=== PATIENT | male | born 1940 | race Caucasian/White ===

== ENCOUNTER 2018-01-22 13:18 | Inpatient (IN) | payer OTHER ==
[~2018-01-22] VITALS: Ht 170.2 cm; Wt 130.6 kg
[~2018-01-22 13:18] MED LIST: BICALUTAMIDE50 MG PO; BUMETANIDE2 MG PO; CLOPIDOGREL75 MG PO; GLIPIZIDE10 MG PO; HYDROCHLOROTHIA25 MG PO; INVOKANA PO; LISINOPRIL40 MG PO; METFORMIN HCL850 MG PO; METOPROLOL TART25 MG PO; NORCO 7.5-3251 EACH PO; OXYBUTYNIN CHLOR5 MG PO
[2018-01-22] MEDS ORDERED: ASPIRIN 325 MG TAB PO ONE (13:45)
[2018-01-22 13:51] LABS: BASOPHILS % 0.4 % (0.0-1.0); EOSINOPHILS # (AUTO) 0.2 (0.0-0.4); EOSINOPHILS % 2.6 % (0.0-6.0); HEMATOCRIT 37.6 % (38.2-49.6); HEMOGLOBIN 12.1 g/dL (14.0-18.0); LYMPHOCYTES % 12.5 % (18.0-39.1); MEAN CORPUSCULAR HEMOGLOBIN 30.4 pg (28-32); MEAN CORPUSCULAR HGB CONC 32.2 g/dL (31-35); MEAN CORPUSCULAR VOLUME 94.5 fL (81-99); MONOCYTES # (AUTO) 0.9 (0.2-0.8); MONOCYTES % 11.7 % (4.4-11.3); NEUTROPHILS # (AUTO) 5.6 (2.1-6.9); NEUTROPHILS % 72.4 % (38.7-80.0); PLATELET COUNT 171 x10e3/uL (140-360); RED BLOOD COUNT 3.98 x10e6/uL (4.3-5.7); RED CELL DISTRIBUTION WIDTH 14.1 % (11.7-14.4)
[2018-01-22] MEDS ORDERED: FUROSEMIDE INJ 10 MG/ML 4 ML VIAL IV ONE (14:00)
[2018-01-22 14:01] LABS: INR 1.23; PROTHROMBIN TIME 14.6 seconds (11.9-14.5)
[2018-01-22 14:02] LABS: PARTIAL THROMBOPLASTIN TIME 22.6 seconds (23.8-35.5)
[2018-01-22 14:13] LABS: ALANINE AMINOTRANSFERASE 10 IU/L (0-55); ALBUMIN 3.4 g/dL (3.5-5.0); ALBUMIN/GLOBULIN RATIO 0.9 (0.8-2.0); ALKALINE PHOSPHATASE 65 IU/L (40-150); ANION GAP 14.5 mmol/L (8-16); BLOOD UREA NITROGEN 38 mg/dL (7-26); BUN/CREATININE RATIO 29 (6-25); CALCIUM 9.5 mg/dL (8.4-10.2); CARBON DIOXIDE 30 mmol/L (22-29); CHLORIDE 99 mmol/L (98-107); CREATINE KINASE 37 IU/L (30-200); EST GLOMERULAR FILTRATION RATE 54 ML/MIN (60-); GLUCOSE 152 mg/dL (74-118); POTASSIUM 4.5 mmol/L (3.5-5.1); SODIUM 139 mmol/L (136-145)
--- NOTE | 2018-01-22 15:26 | Diagnostic Imaging Report ---
PROCEDURE: A single AP view of the chest. COMPARISON: 03/19/2016 INDICATIONS: SHORTNESS OF BREATH, CHEST PAIN, CHF FINDINGS: Lines/tubes: None. Lungs: The lung volumes are low. There is pulmonary vascular congestion and mild interstitial edema. Pleura: No pneumothorax. A small right pleural effusion maybe present. Heart and mediastinum: Mild cardiomegaly, unchanged. Atherosclerosis of the thoracic aorta. Bones: No acute bony abnormality. IMPRESSION: Low lung volumes with pulmonary vascular congestion and mild interstitial edema. Dictated by: Daniel Bear M.D. on 01/22/2018 at 15:31 Electronically approved by: Daniel Bear M.D. on 01/22/2018 at 15:31
[2018-01-22] MEDS ORDERED: NOVOLOG100 UNITS1 SC (16:01)
[2018-01-22] MEDS ORDERED: LEVEMIR100 UNIT/1 SC (16:01)
[2018-01-22] MEDS ORDERED: ELIQUIS PO (16:01)
[2018-01-22] MEDS ORDERED: CLOPIDOGREL75 MG PO (16:04)
[2018-01-22] MEDS ORDERED: CITALOPRAM HBR20 MG PO (16:04)
[2018-01-22] MEDS ORDERED: FLUCONAZOLE100 MG PO (16:04)
[2018-01-22] MEDS ORDERED: FUROSEMIDE10 MG/1 M1 PO (16:04)
[2018-01-22] MEDS ORDERED: CHLORTHALIDONE25 MG PO (16:04)
[2018-01-22] MEDS ORDERED: SPIRONOLACTONE25 MG PO (16:09)
[2018-01-22] MEDS ORDERED: TIZANIDINE HCL4 M1 PO (16:09)
[2018-01-22] MEDS ORDERED: LISINOPRIL10 MG PO (16:13)
[2018-01-22] MEDS ORDERED: FUROSEMIDE INJ 10 MG/ML 4 ML VIAL IV SCH (17:00)
[2018-01-22 18:35] VITALS: BP 153/82
[2018-01-22 19:10] VITALS: BP 140/63
[2018-01-22] MEDS ORDERED: VITAMIN D250000 UNIT PO (20:51)
[2018-01-22] MEDS ORDERED: CHLORTHALIDONE 25 MG TAB PO PRN (21:30)
[2018-01-22] MEDS ORDERED: TIZANIDINE HCL 4 MG TAB PO PRN (21:30)
[2018-01-22] MEDS ORDERED: ERGOCALCIFEROL 50,000 UNIT CAP PO SCH (21:30)
[2018-01-22 23:50] VITALS: BP 140/63
[2018-01-22 23:51] VITALS: BP 140/63
[2018-01-23 00:30] VITALS: BP 113/54
[2018-01-23 00:41] LABS: CREATINE KINASE 45 IU/L (30-200)
[2018-01-23] MEDS: FUROSEMIDE INJ 10 MG/ML 4 ML VIAL IV SCH ×2 (02:06→13:00)
[2018-01-23 04:00] VITALS: BP 116/61
[2018-01-23] MEDS ORDERED: GLIPIZIDE 5 MG TAB PO SCH (07:30)
[2018-01-23 07:37] VITALS: BP 117/62
[2018-01-23 08:00] VITALS: BP 117/62
[2018-01-23] MEDS: METFORMIN HCL 850 MG TAB PO SCH ×2 (08:45→12:23)
[2018-01-23] MEDS: CITALOPRAM HYDROBROMIDE 20 MG TAB PO SCH (08:46)
[2018-01-23] MEDS: OXYBUTYNIN CHLORIDE 5 MG TAB PO SCH ×2 (08:46→18:08)
[2018-01-23] MEDS: APIXABAN 5 MG TABLET PO SCH ×2 (08:46→18:08)
[2018-01-23] MEDS: SPIRONOLACTONE 25 MG TAB PO SCH ×2 (08:46→18:08)
[2018-01-23] MEDS: INSULIN LISPRO 100 UNIT/1 ML 3ML VIAL SQ SCH ×3 (08:46→18:46)
[2018-01-23] MEDS: METOPROLOL TARTRATE 25 MG TAB PO SCH ×2 (08:47→18:09)
[2018-01-23] MEDS: LISINOPRIL 10 MG TAB PO SCH (08:47)
[2018-01-23] MEDS ORDERED: CLOPIDOGREL BISULFATE 75 MG TAB PO SCH (09:00)
[2018-01-23] MEDS ORDERED: FLUCONAZOLE 100 MG TAB PO SCH (09:00)
[2018-01-23] MEDS ORDERED: BUMETANIDE 1 MG TAB PO SCH (09:00)
[2018-01-23] MEDS ORDERED: HYDRALAZINE HCL 20 MG/ML VIAL IV PRN (11:15)
[2018-01-23] MEDS ORDERED: NITROGLYCERIN 0.4 MG SUBL SL PRN (11:15)
[2018-01-23] MEDS ORDERED: METOPROLOL TARTRATE INJ 1 MG/ML VIAL IV PRN (11:15)
[2018-01-23 11:54] LABS: MAGNESIUM 1.4 MG/DL (1.3-2.1); PHOSPHORUS 3.1 MG/DL (2.3-4.7)
[2018-01-23] MEDS ORDERED: ACETAMINOPHEN 325 MG TAB PO PRN (12:45)
[2018-01-23] MEDS ORDERED: METOLAZONE 5 MG TAB PO ONE (14:30)
[2018-01-23] MEDS: GABAPENTIN 100 MG CAP PO SCH ×2 (15:02→21:41)
[2018-01-23 16:29] VITALS: BP 125/62
--- NOTE | 2018-01-23 16:58 | History and Physical ---
CHIEF COMPLAINT: Shortness of breath and weight gain. PCP: Dr. Rm Parham SENIOR [employer] BUSINESS PARTNER: Dr. Raza Ramirez HISTORY: This is a 77-year-old male who has congestive heart failure. His last ejection fraction was approximately 30%. That was back in March 2016. The patient came in this time with increasing shortness of breath. The patient apparently had weight gain. He is not watching his fluids. He has vascular congestion, baseline congestive heart failure, atrial fibrillation. The patient is otherwise stable. PAST MEDICAL HISTORY 1. Systolic dysfunction congestive heart failure. 2. Depression. 3. Obesity. 4. Diabetes, type 2. 5. Hypertension. 6. Chronic osteoarthritic pain. 7. History of coronary disease. 8. Cerebrovascular accident with no residual weakness. 9. Atrial fibrillation on anticoagulant therapy. HOME MEDICATIONS: List is reviewed. ALLERGIES: PENICILLIN, ADHESIVE TAPE, HYDROMORPHONE AND LATEX. REVIEW OF SYSTEMS: Shortness of breath and leg swelling. PHYSICAL EXAMINATION GENERAL: The patient is not in acute distress. VITAL SIGNS: Temperature 98. Blood pressure 117/62. Pulse rate 80. Respirations 18. HEENT: Normocephalic, atraumatic, anicteric. NECK: Grossly supple. No JVD. PULMONARY: Diminished breath sounds at the bases with some rales. CARDIOVASCULAR: S1, S2. Atrial fibrillation, rate controlled. ABDOMEN: Soft, obese. EXTREMITIES: There is 1+ edema. NEUROLOGIC: No focal deficit. CHEST X-RAY: Low volume lungs with vascular congestion. LABORATORY: WBC 7.7, hemoglobin 12.1, hematocrit 37.6 and platelets 171. Coagulation: INR is 1.23. Troponins are negative. Uric acid is 12.3. Sodium is 139, potassium 4.5, chloride 99, bicarb 30. BUN is 38 and creatinine 1.3. Glucose is 152. BNP is 222. IMPRESSION 1. [id number] systolic dysfunction congestive heart failure exacerbation. 2. Multiple chronic medical problems. PLAN: Echocardiogram. Repeated lab work. IV Lasix. Home medication adjustment. Will monitor the patient closely. Job#: [id number]
[2018-01-23 19:30] VITALS: BP 118/58
[2018-01-23] MEDS: CHOLESTYRAMINE 4 GM PACKET PO SCH (21:41)
[2018-01-23] MEDS: INSULIN DETEMIR 100 UNIT/ML PEN SQ SCH (21:53)
[2018-01-24] VITALS (8 sets, daily range): BP systolic 96–115; BP diastolic 50–56
[2018-01-24] MEDS: FUROSEMIDE INJ 10 MG/ML 4 ML VIAL IV SCH ×2 (02:43→15:09)
[2018-01-24] MEDS: CHOLESTYRAMINE 4 GM PACKET PO SCH ×3 (05:06→20:58)
[2018-01-24 06:14] LABS: ANION GAP 13.5 mmol/L (8-16); CREATININE, SERUM 1.6 mg/dL (0.72-1.25); POTASSIUM 3.5 mmol/L (3.5-5.1)
[2018-01-24] MEDS: INSULIN LISPRO 100 UNIT/1 ML 3ML VIAL SQ SCH ×3 (08:00→16:00)
[2018-01-24] MEDS: OXYBUTYNIN CHLORIDE 5 MG TAB PO SCH ×2 (08:26→16:10)
[2018-01-24] MEDS: APIXABAN 5 MG TABLET PO SCH ×2 (08:26→16:10)
[2018-01-24] MEDS: CITALOPRAM HYDROBROMIDE 20 MG TAB PO SCH (08:26)
[2018-01-24] MEDS: SPIRONOLACTONE 25 MG TAB PO SCH ×2 (08:26→16:10)
[2018-01-24] MEDS: LISINOPRIL 10 MG TAB PO SCH (08:27)
[2018-01-24] MEDS: METOPROLOL TARTRATE 25 MG TAB PO SCH ×2 (08:27→16:22)
[2018-01-24] MEDS: GABAPENTIN 100 MG CAP PO SCH ×3 (08:27→20:58)
[2018-01-24] MEDS ORDERED: LISINOPRIL 2.5 MG TAB PO SCH (09:00)
[2018-01-24] MEDS: HYDROCODONE/APAP 7.5MG-325MG 1 EA TAB PO PRN ×2 (12:06→19:29)
[2018-01-24] MEDS ORDERED: MAGNESIUM SULFATE 2GM/50ML 50 ML IV ONE (14:00)
[2018-01-24] MEDS: INSULIN DETEMIR 100 UNIT/ML PEN SQ SCH (20:57)
[2018-01-25] VITALS (10 sets, daily range): BP systolic 81–122; BP diastolic 41–76
[2018-01-25] MEDS: FUROSEMIDE INJ 10 MG/ML 4 ML VIAL IV SCH (02:12)
[2018-01-25] MEDS: HYDROCODONE/APAP 7.5MG-325MG 1 EA TAB PO PRN ×2 (02:18→20:07)
[2018-01-25] MEDS: CHOLESTYRAMINE 4 GM PACKET PO SCH ×3 (05:36→22:00)
[2018-01-25 06:53] LABS: CALCIUM 8.7 mg/dL (8.4-10.2); CREATININE, SERUM 2.42 mg/dL (0.72-1.25)
[2018-01-25] MEDS: INSULIN LISPRO 100 UNIT/1 ML 3ML VIAL SQ SCH ×3 (08:00→17:40)
[2018-01-25] MEDS: SPIRONOLACTONE 25 MG TAB PO SCH (08:18)
[2018-01-25] MEDS: GABAPENTIN 100 MG CAP PO SCH ×3 (08:19→22:13)
[2018-01-25] MEDS: METOPROLOL TARTRATE 25 MG TAB PO SCH ×3 (08:19→16:24)
[2018-01-25] MEDS: OXYBUTYNIN CHLORIDE 5 MG TAB PO SCH ×2 (08:19→17:13)
[2018-01-25] MEDS: APIXABAN 5 MG TABLET PO SCH (08:19)
[2018-01-25] MEDS: CITALOPRAM HYDROBROMIDE 20 MG TAB PO SCH (08:19)
[2018-01-25] MEDS: LISINOPRIL 10 MG TAB PO SCH (08:22)
[2018-01-25] MEDS ORDERED: ENOXAPARIN SODIUM INJ 100 MG/ML SYR SC SCH (21:00)
[2018-01-25] MEDS: ENOXAPARIN SOD INJ 60 MG/0.6 ML SYR SC SCH (22:13)
[2018-01-25] MEDS: INSULIN DETEMIR 100 UNIT/ML PEN SQ SCH (22:19)
[2018-01-26] VITALS (11 sets, daily range): BP systolic 95–132; BP diastolic 51–82
[2018-01-26 05:19] LABS: BASOPHILS % 0.5 % (0.0-1.0); EOSINOPHILS # (AUTO) 0.4 (0.0-0.4); EOSINOPHILS % 4.1 % (0.0-6.0); HEMATOCRIT 31.7 % (38.2-49.6); LYMPHOCYTES # (AUTO) 1.3 (1.0-3.2); LYMPHOCYTES % 14.6 % (18.0-39.1); MEAN CORPUSCULAR HEMOGLOBIN 30.5 pg (28-32); MEAN CORPUSCULAR HGB CONC 31.5 g/dL (31-35); MEAN CORPUSCULAR VOLUME 96.6 fL (81-99); MONOCYTES # (AUTO) 1.2 (0.2-0.8); MONOCYTES % 13.5 % (4.4-11.3); NEUTROPHILS # (AUTO) 5.9 (2.1-6.9); PLATELET COUNT 153 x10e3/uL (140-360); RED BLOOD COUNT 3.28 x10e6/uL (4.3-5.7)
[2018-01-26] MEDS: CHOLESTYRAMINE 4 GM PACKET PO SCH ×4 (05:25→14:55)
[2018-01-26 05:51] LABS: ANION GAP 14.3 mmol/L (8-16); CALCIUM 8.8 mg/dL (8.4-10.2); CREATININE, SERUM 3.35 mg/dL (0.72-1.25)
[2018-01-26 06:15] LABS: POTASSIUM 5.3 mmol/L (3.5-5.1)
[2018-01-26] MEDS: METOPROLOL TARTRATE 25 MG TAB PO SCH ×2 (07:58→16:55)
[2018-01-26] MEDS: CITALOPRAM HYDROBROMIDE 20 MG TAB PO SCH (07:58)
[2018-01-26] MEDS: OXYBUTYNIN CHLORIDE 5 MG TAB PO SCH ×2 (07:58→16:54)
[2018-01-26] MEDS: INSULIN LISPRO 100 UNIT/1 ML 3ML VIAL SQ SCH ×3 (07:58→16:50)
[2018-01-26] MEDS: GABAPENTIN 100 MG CAP PO SCH (07:59)
[2018-01-26] MEDS: ENOXAPARIN SOD INJ 60 MG/0.6 ML SYR SC SCH ×2 (07:59→21:39)
[2018-01-26] MEDS ORDERED: SOD POLYSTYRENE SULFONATE SUSP 15 GM/60 ML BTL PO NR (08:00)
[2018-01-26] MEDS ORDERED: REGADENOSON 0.4 MG/5 ML SYR IV ONE (08:36)
[2018-01-26] MEDS ORDERED: SOD POLYSTYRENE SULFONATE SUSP 15 GM/60 ML BTL PO SCH (12:15)
[2018-01-26] MEDS: HYDROCODONE/APAP 7.5MG-325MG 1 EA TAB PO PRN (19:38)
[2018-01-26] MEDS: INSULIN DETEMIR 100 UNIT/ML PEN SQ SCH (21:29)
[2018-01-27] VITALS (8 sets, daily range): BP systolic 106–128; BP diastolic 51–58
--- NOTE | 2018-01-27 00:37 | Diagnostic Imaging Report ---
EXAMINATION: Head CT without contrast. HISTORY:Fall. COMPARISON:CT brain from 03/22/2016 and MRI brain from 03/28/2016. TECHNIQUE: Multidetector axial images were obtained from the foramen magnum to the vertex without contrast. The images were reconstructed using brain and bone algorithms. Thin section brain images were reformatted into coronal and sagittal planes. Intravenous contrast: None IMAGE QUALITY: Acceptable. FINDINGS: Skull/scalp: Unchanged 2.5 mm well-circumscribed sclerotic lesion in left frontal calvarium, possibly represents a bone island. Parenchyma: Unchanged nonspecific few, scattered supratentorial white matter hypodensity are likely related to small vessel ischemic changes. Old lacunar infarct in the right lateral aspect of the lateral meniscus. Unchanged chronic encephalomalacia in the right occipital lobe (cuneus) from prior vascular insult in [employer] territory. No acute hemorrhage, mass or acute major vascular territorial infarct. Arteries: Atherosclerotic calcification in bilateral carotid siphon. Dural sinuses: No abnormal density suggestive of thrombosis. Ventricles: No hydrocephalus or displacement. Extra-axial spaces: No abnormal density. Brain volume: Normal for age. Craniocervical junction: No mass, Chiari malformation, or basilar invagination. Sella: No mass. Paranasal/mastoid sinuses: Imaged portions unremarkable. IMPRESSION: No acute intracranial abnormality. No change since CT brain from 03/22/2016. Chronic findings: 1. Mild supratentorial white matter microvascular ischemic changes. 2. Old lacunar infarct in right thalamus. 3. Chronic encephalomalacia in right occipital lobe from prior vascular insult. Signed by: Dr. Paula Nguyen M.D. on 01/27/2018 12:34 AM
--- NOTE | 2018-01-27 00:43 | Diagnostic Imaging Report ---
History: Trauma, fall. Comparison studies: None Technique: Axial images were obtained through the cervical region.. Coronal and sagittal images reconstructed from the axial data.. Intravenous contrast: None Findings: Fractures: None. Soft tissue injuries: None. Atlantoaxial articulation: Intact. Alignment: Normal lordosis. No scoliosis. Cervicomedullary junction: No abnormalities. The foramen magnum is patent. Soft tissues: Atherosclerotic calcification in bilateral carotid bulb. Vertebrae: No fractures, infection or neoplasm. Chronic fracture deformity of the tip of T1 spinous process. Degenerative changes: C4-C5: Posterior disc osteophyte complex results in mild canal stenosis. No foraminal stenosis. C5-C6: Posterior disc osteophyte complex without canal stenosis. No foraminal stenosis. C6-C7: Mild left foraminal stenosis due to facet and uncovertebral arthrosis. IMPRESSION: 1. No acute cervical spine abnormalities. 2. Ligament, spinal cord and or vascular abnormalities cannot be excluded on the basis of this examination. Signed by: Dr. Paula Nguyen M.D. on 01/27/2018 12:39 AM
--- NOTE | 2018-01-27 00:47 | Diagnostic Imaging Report ---
Exam: CT of the pelvis without IV contrast Indication: Fall, right hip pain Comparison: None Findings: Routine MSK protocol performed without the addition of IV contrast. No pelvic or hip fracture. Normal intrapelvic organs. No hematoma. Bilateral fat-containing inguinal hernias versus lipomatosis of the canal. The soft tissues are unremarkable. Impression: No evidence of a pelvic or hip fracture. Signed by: Dr. Lindsey Kyle M.D. on 01/27/2018 12:43 AM
--- NOTE | 2018-01-27 00:48 | Diagnostic Imaging Report ---
EXAM: HAND 3+ VIEWS RIGHT, AP, lateral and oblique INDICATION: Fall, right hand pain COMPARISON: None FINDINGS: BONES: No acute fractures. JOINTS: No malalignment. SOFT TISSUES: Normal IMPRESSION: No evidence of a right hand fracture. Signed by: Dr. Lindsey Kyle M.D. on 01/27/2018 12:45 AM
--- NOTE | 2018-01-27 00:56 | Diagnostic Imaging Report ---
History: Trauma, fall. Comparison studies: None Technique:: Axial were obtained through the thoracic and lumbar regions. Coronal and sagittal images reconstructed from the axial data. Intravenous contrast: None Findings: Alignment: Normal thoracic kyphosis. Normal lumbar lordosis.. No scoliosis. Soft tissues: Moderate right and mild left pleural effusion. Paraspinal muscles: Unremarkable Spinal cord: Can not be evaluated. Vertebrae: No fractures, infection or neoplasm . Thoracic degenerative changes: Multilevel degenerative disc disease and bridging right lateral osteophytes. No significant canal or foraminal stenosis Lumbar degenerative changes: L4-L5: Disc bulge in combination with thickened ligamentum flavum and bilateral facet arthrosis results in mild canal stenosis. Mild bilateral foraminal stenosis. L5-S1: Degenerative disc disease with vacuum phenomena and. Disc bulge without canal stenosis. Advanced bilateral facet arthrosis with vacuum phenomena and within the facet joints. Mild bilateral foraminal stenosis. Visualized portion of bilateral sacroiliac joints: Mild degenerative changes with vacuum phenomenon, decrease in joint space and subchondral sclerosis. IMPRESSION: 1. No acute thoracic or lumbar spine abnormality. 2. Mild thoracic and lumbar spondylosis as detailed above. 3. Ligament, spinal cord and or vascular abnormalities cannot be excluded on the basis of this examination. Signed by: Dr. Paula Nguyen M.D. on 01/27/2018 12:52 AM
[2018-01-27 05:33] LABS: BASOPHILS % 0.4 % (0.0-1.0); EOSINOPHILS # (AUTO) 0.2 (0.0-0.4); HEMATOCRIT 32.2 % (38.2-49.6); HEMOGLOBIN 10.3 g/dL (14.0-18.0); LYMPHOCYTES # (AUTO) 1.2 (1.0-3.2); LYMPHOCYTES % 15.1 % (18.0-39.1); MEAN CORPUSCULAR HEMOGLOBIN 30.6 pg (28-32); MEAN CORPUSCULAR VOLUME 95.5 fL (81-99); MONOCYTES # (AUTO) 0.9 (0.2-0.8); MONOCYTES % 11.3 % (4.4-11.3); NEUTROPHILS # (AUTO) 5.6 (2.1-6.9); NEUTROPHILS % 69.9 % (38.7-80.0); PLATELET COUNT 141 x10e3/uL (140-360); RED BLOOD COUNT 3.37 x10e6/uL (4.3-5.7); RED CELL DISTRIBUTION WIDTH 14.1 % (11.7-14.4)
[2018-01-27] MEDS: CHOLESTYRAMINE 4 GM PACKET PO SCH ×3 (06:00→22:00)
[2018-01-27 06:01] LABS: ANION GAP 15.3 mmol/L (8-16); CALCIUM 8.7 mg/dL (8.4-10.2); CREATININE, SERUM 3.12 mg/dL (0.72-1.25); POTASSIUM 5.3 mmol/L (3.5-5.1)
[2018-01-27] MEDS: INSULIN LISPRO 100 UNIT/1 ML 3ML VIAL SQ SCH ×3 (08:50→18:04)
[2018-01-27] MEDS: OXYBUTYNIN CHLORIDE 5 MG TAB PO SCH ×2 (08:50→17:38)
[2018-01-27] MEDS: METOPROLOL TARTRATE 25 MG TAB PO SCH ×2 (08:50→17:38)
[2018-01-27] MEDS: CITALOPRAM HYDROBROMIDE 20 MG TAB PO SCH (08:50)
[2018-01-27] MEDS: ENOXAPARIN SOD INJ 60 MG/0.6 ML SYR SC SCH ×2 (08:50→22:30)
--- NOTE | 2018-01-27 14:08 | Cardiology Report ---
DATE OF STUDY: January 26, 2018 LEXISCAN NUCLEAR STRESS TEST INDICATIONS: CHF. DESCRIPTION OF PROCEDURE: After informed consent, patient was brought to the stress lab. He was given 11 millicuries of technetium 99 Myoview intravenously and myocardial perfusion SPECT images were obtained in the horizontal long-axis, short-axis and vertical long-axis views. Subsequently, patient was given 0.4 mg of Lexiscan over 10 seconds intravenously. Patient was given 32 mCi of technetium 99 Myoview and myocardial perfusion SPECT image was obtained in the horizontal long-axis, short-axis and vertical long-axis views. Gated images were also obtained. Patient tolerated the procedure without any complications. REPORT: Baseline EKG shows atrial fibrillation at 84 beats per minute. Extreme axis intraventricular conduction delay, nonspecific ST-T changes. PARAMETERS 1. Resting heart rate is 114 beats. 2. Maximum heart rate is 129 beats per minute. 3. Resting blood pressure is 118/98 mmHg. 4. Maximum blood pressure 119/98 mmHg. REASON FOR TERMINATION: Endpoint attained. INTERPRETATION 1. Negative chest pain. 2. Negative for arrhythmias. 3. Blood pressure response consistent with Lexiscan. 4. No significant ST-T changes seen during Lexiscan infusion compared to baseline. 5. Analysis and SPECT images reveals dilated left ventricle. 6. Uniform radioisotope uptake in all segments of the myocardium without any significant perfusion defects. 7. Diffuse hyperkinesis of the left ventricle. 8. Overall ejection fraction 44%. CONCLUSION: 1. No evidence significant ischemia or infarction on this study. 2. Diffuse hyperkinesis of the left ventricle is noted. 3. Overall ejection fraction is 44%. Job#: [id number]
[2018-01-27] MEDS: INSULIN DETEMIR 100 UNIT/ML PEN SQ SCH (21:00)
[2018-01-27] MEDS: HYDROCODONE/APAP 7.5MG-325MG 1 EA TAB PO PRN (23:39)
[2018-01-28] VITALS (7 sets, daily range): BP systolic 107–133; BP diastolic 55–63
[2018-01-28] MEDS: CHOLESTYRAMINE 4 GM PACKET PO SCH ×3 (06:00→22:00)
[2018-01-28 06:02] LABS: ANION GAP 13.5 mmol/L (8-16); CALCIUM 8.7 mg/dL (8.4-10.2); CREATININE, SERUM 2.07 mg/dL (0.72-1.25); POTASSIUM 4.5 mmol/L (3.5-5.1)
[2018-01-28] MEDS: HYDROCODONE/APAP 7.5MG-325MG 1 EA TAB PO PRN (07:25)
[2018-01-28] MEDS: CITALOPRAM HYDROBROMIDE 20 MG TAB PO SCH (08:50)
[2018-01-28] MEDS: INSULIN LISPRO 100 UNIT/1 ML 3ML VIAL SQ SCH ×3 (08:50→17:30)
[2018-01-28] MEDS: METOPROLOL TARTRATE 25 MG TAB PO SCH ×2 (08:50→17:30)
[2018-01-28] MEDS: OXYBUTYNIN CHLORIDE 5 MG TAB PO SCH ×2 (08:50→17:30)
[2018-01-28] MEDS ORDERED: APIXABAN 5 MG TABLET PO SCH (09:00)
[2018-01-28] MEDS: BUMETANIDE 1 MG TAB PO SCH (09:18)
[2018-01-28] MEDS ORDERED: FUROSEMIDE INJ 10 MG/ML 4 ML VIAL IV ONE (14:00)
[2018-01-28] MEDS: INSULIN DETEMIR 100 UNIT/ML PEN SQ SCH (21:00)
[2018-01-28] MEDS: APIXABAN 5 MG TABLET PO SCH (22:28)
[2018-01-29] VITALS: BP 133/57
[2018-01-29 05:27] LABS: ANION GAP 15.5 mmol/L (8-16); CALCIUM 9.4 mg/dL (8.4-10.2); CREATININE, SERUM 1.72 mg/dL (0.72-1.25); POTASSIUM 4.5 mmol/L (3.5-5.1)
[2018-01-29] MEDS: CHOLESTYRAMINE 4 GM PACKET PO SCH (06:00)
[2018-01-29 06:21] VITALS: BP 129/68
[2018-01-29] MEDS: HYDROCODONE/APAP 7.5MG-325MG 1 EA TAB PO PRN (07:47)
[2018-01-29 08:00] VITALS: BP 135/58
[2018-01-29] MEDS: INSULIN LISPRO 100 UNIT/1 ML 3ML VIAL SQ SCH (08:00)
[2018-01-29 08:07] VITALS: BP 135/58
[2018-01-29] MEDS: BUMETANIDE 1 MG TAB PO SCH (10:18)
[2018-01-29] MEDS: CITALOPRAM HYDROBROMIDE 20 MG TAB PO SCH (10:18)
[2018-01-29] MEDS: OXYBUTYNIN CHLORIDE 5 MG TAB PO SCH (10:18)
[2018-01-29] MEDS: APIXABAN 5 MG TABLET PO SCH (10:18)
[2018-01-29] MEDS: METOPROLOL TARTRATE 25 MG TAB PO SCH (10:18)
--- NOTE | 2018-01-29 17:41 | Discharge Summary ---
DISCHARGE DIAGNOSES 1. Acute exacerbation of congestive heart failure with systolic and diastolic congestive. 2. Acute kidney injury secondary to ischemic acute tubular necrosis. 3. Anasarca. 4. Type 2 diabetes. 5. Hypertension. 6. Morbidly obese. CONSULTANTS: Cardiology. VITAL SIGNS: Temperature is 97.2, pulse 71, respiratory rate is 20, blood pressure 135/58, pulse ox 98% on room air. LAB FINDINGS: Show white count 7.8, hemoglobin 10, hematocrit 32, platelets of 141. Coagulation PT 14, INR 1.2, PTT 22. Chemistry sodium 137, potassium 4.5, chloride 196, bicarb of 30, anion gap of 15, BUN is 83, creatinine is 1.7. His glucose is 134. His calcium is 9.4. His troponins were negative. His BNP was 222, lipase of 32, phosphorus was 3.1. MICROBIOLOGY: None. IMAGING STUDIES: Chest x-ray on admission consistent with pulmonary edema. Lower extremity venous Doppler negative for DVT. CT cervical spine negative. X-ray of the hand negative. CT brain--no acute findings seen. Thoracic CT--no acute findings. Pelvis CT--no acute findings. CT of the lumbar spine shows no acute findings. HOSPITAL COURSE: A 77-year-old male with known history of CHF, diabetes, hypertension and morbidly obese, comes in with complaints of shortness of breath. Found to have pulmonary edema and treated for underlying acute exacerbation of CHF. Cardiology was consulted. Patient was started on diuretics. While in the hospital his creatinine did elevated and developed acute kidney injury secondary to his HUSSAIN inhibitor as well as diuretics. Patient's creatinine did improve throughout hospital course and down-trended to a creatinine of 1.7 on discharge. Patient was advised to follow up with a colorman as an outpatient with repeat labs in a week. Patient had a cardiac stress test, found to have some abnormalities but due to the fact that the patient had an elevated creatinine, left heart cath was deferred by cardiology. Patient may need a heart cath in the future but due to acute kidney injury at this hospital stay it was deferred. Instead LifeVest was ordered and placed on the patient. Patient also qualified for home O2 as well in which he will be discharged with oxygen. On discharge he will be sent home on cardioprotective medications as well as diuretics. He is advised to follow up with cardiology in 1 week as well as nephrology with repeat labs and PCP in 1 week. On the day of discharge vital signs were stable, labs were stable. Patient was seen, evaluated and examined thoroughly. On the day of discharge no other complaints. Patient verbalized understanding and agrees with plan of care. To follow up accordingly as an outpatient with the primary care physician, mri ct tech and colorman in 1 week span. Would repeat chemistry. DISCHARGE MEDICATIONS: See med reconciliation form includin. Aspirin 81 mg daily 1 tab daily. 2. Aldactone 25 mg 1 tab daily. 3. Bumex 2 mg 1 tab p.o. b.i.d. DISPOSITION: To home. CONDITION: Stable. DIET: Heart healthy. FOLLOWUP: With your mri ct tech, primary care physician and as well as nephrology in one week span with repeat labs. In the event of worsening symptoms, patient advised to come back to the ED for further evaluation. Discharge summary took greater than 35 minutes. ELIZABETH NGUYEN MD Job#: [id number] DG
== END 2018-01-29 13:00 | disposition home health service (06) | DRG 291 ==
LOC: ER 13:18 → ERHOLD 16:18 → IMCU 17:05 → OBSVTOIN 01-24 14:53 → MED/SURG 01-24 16:15
PROVIDERS: ADMIT Internal Medicine; ATTEND Internal Medicine
DX: I13.0 Hypertensive heart and chronic kidney disease with heart failure and stage 1 through stage 4 chronic kidney disease, or unspecified chronic kidney disease (principal); N17.0 Acute kidney failure with tubular necrosis; I50.43 Acute on chronic combined systolic (congestive) and diastolic (congestive) heart failure; Z68.41 Body mass index [BMI] 40.0-44.9, adult; I25.10 Atherosclerotic heart disease of native coronary artery without angina pectoris; I48.91 Unspecified atrial fibrillation; Z79.01 Long term (current) use of anticoagulants; F32.9 Major depressive disorder, single episode, unspecified; Z91.040 Latex allergy status; Z88.0 Allergy status to penicillin; Z88.8 Allergy status to other drugs, medicaments and biological substances; Z91.048 Other nonmedicinal substance allergy status; E66.01 Morbid (severe) obesity due to excess calories; E11.22 Type 2 diabetes mellitus with diabetic chronic kidney disease; N18.9 Chronic kidney disease, unspecified
CPT/HCPCS: 36415; 70450; 71045; 72125; 72128; 72131; 72192; 78452; 80048; 80053; 82150; 82306; 82550; 82553; 82948; 83690; 83735; 83880; 84100; 84484; 84550; 85025; 85610; 85651; 85730; 93005; 93017; 93306; 93970; 99285; A9502; G0378; J1650; J1940

== ENCOUNTER 2018-06-04 13:35 | Inpatient (IN) | payer OTHER ==
[~2018-06-04] VITALS: Ht 170.2 cm; Wt 116.6 kg
[~2018-06-04 13:35] MED LIST changes: +AMIODARONE HCL200 MG PO; +CHLORTHALIDONE25 MG PO; +CITALOPRAM HBR20 MG PO; +ELIQUIS PO; +FLUCONAZOLE100 MG PO; +FUROSEMIDE10 MG/1 M1 PO; +LEVEMIR100 UNIT/1 SC; +LISINOPRIL10 MG PO; +LISINOPRIL5 MG PO; +NOVOLOG100 UNITS1 SC; +SPIRONOLACTONE25 MG PO; +TIZANIDINE HCL4 M1 PO; +VITAMIN D250000 UNIT PO
[2018-06-04] MEDS ORDERED: METOCLOPRAMIDE10 MG PO (14:12)
[2018-06-04] MEDS ORDERED: SPIRONOLACTONE50 MG PO (14:12)
[2018-06-04] MEDS ORDERED: BUMETANIDE1 MG PO (14:12)
[2018-06-04] MEDS ORDERED: METOPROLOL TART25 MG PO (14:12)
[2018-06-04] MEDS ORDERED: GLIPIZIDE5 MG PO (14:12)
[2018-06-04] MEDS ORDERED: BUPROPION XL150 MG (14:12)
[2018-06-04] MEDS ORDERED: DIGOXIN125 MCG PO (14:12)
[2018-06-04] MEDS ORDERED: OXYBUTYNIN CHLOR5 GM (14:12)
[2018-06-04] MEDS ORDERED: CLOPIDOGREL75 MG PO (14:14)
[2018-06-04] MEDS ORDERED: LEVEMIR SQ (14:14)
--- NOTE | 2018-06-04 15:49 | Diagnostic Imaging Report ---
Exam: Left foot 3 views History: Cellulitis Comparison: None. Findings: No acute, displaced fracture or dislocation. No cortical erosive or destructive change. Joint spaces are relatively well-maintained. Degenerative plantar and posterior calcaneal spur. Atherosclerotic vascular calcifications. No gross soft tissue defect or subcutaneous gas. Impression: No acute osseous abnormalities. No plain radiographic evidence of osteomyelitis in this patient with reported history of cellulitis of the foot. Signed by: Dr. Jaleel Pradhan M.D. on 06/04/2018 3:45 PM
[2018-06-04 15:55] LABS: BASOPHILS # (AUTO) 0.1 (0.0-0.1); BASOPHILS % 0.3 % (0.0-1.0); EOSINOPHILS # (AUTO) 0.2 (0.0-0.4); EOSINOPHILS % 1.4 % (0.0-6.0); HEMATOCRIT 38.2 % (38.2-49.6); HEMOGLOBIN 12.4 g/dL (14.0-18.0); LYMPHOCYTES # (AUTO) 1.1 (1.0-3.2); LYMPHOCYTES % 7.4 % (18.0-39.1); MEAN CORPUSCULAR HEMOGLOBIN 31.6 pg (28-32); MEAN CORPUSCULAR HGB CONC 32.5 g/dL (31-35); MEAN CORPUSCULAR VOLUME 97.4 fL (81-99); MONOCYTES # (AUTO) 1.5 (0.2-0.8); NEUTROPHILS # (AUTO) 11.8 (2.1-6.9); NEUTROPHILS % 80.2 % (38.7-80.0); PLATELET COUNT 215 x10e3/uL (140-360); RED BLOOD COUNT 3.92 x10e6/uL (4.3-5.7); RED CELL DISTRIBUTION WIDTH 13.6 % (11.7-14.4)
[2018-06-04 16:12] LABS: ALBUMIN 3.3 g/dL (3.5-5.0); ALBUMIN/GLOBULIN RATIO 0.8 (0.8-2.0); ANION GAP 14.4 mmol/L (8-16); CALCIUM 9.9 mg/dL (8.4-10.2); CREATININE, SERUM 1.83 mg/dL (0.72-1.25); POTASSIUM 5.4 mmol/L (3.5-5.1)
[2018-06-04] MEDS ORDERED: INSULIN REGULAR, HUMAN 3ML VL 100 UNIT in SODIUM CHLORIDE 0.9% 100 ML 99 ML IV ONE ×2 (16:30)
[2018-06-04] MEDS ORDERED: SODIUM CHLORIDE 0.9% 500ML 500 ML IV ONE (16:30)
[2018-06-04] MEDS ORDERED: ONDANSETRON HCL INJ 2 MG/ML VIAL IV PRN (16:45)
[2018-06-04] MEDS ORDERED: SODIUM CHLORIDE FLUSH 10 ML SYR INJ PRN (16:45)
[2018-06-04] MEDS: MORPHINE SULFATE 2 MG/ML SYR IV PRN (18:08)
[2018-06-04] MEDS: VANCOMYCIN 1GM/NS 250 ML 250 ML IV SCH (18:23)
[2018-06-04 21:25] LABS: CLARITY,URINE SL CLOUDY (CLEAR); COLOR,URINE YELLOW (YELLOW); LEUKOCYTE ESTERASE ,URINE NEGATIVE (NEGATIVE); NITRITE,URINE NEGATIVE (NEGATIVE); PROTEIN,URINE DIPSTICK NEGATIVE (NEGATIVE)
[2018-06-04 21:26] LABS: BILIRUBIN,URINE NEGATIVE (NEGATIVE); KETONES,URINE NEGATIVE (NEGATIVE); URINE UROBILINOGEN 0.2 mg/dL (0.2 - 1)
[2018-06-04 21:32] LABS: EPITHELIAL CELLS,URINE FEW /LPF; HYALINE CASTS 0-1 (0-1)
[2018-06-04] MEDS: INSULIN REGULAR, HUMAN 100 UNIT/1 ML 3ML VIAL SQ SCH ×2 (21:45→21:59)
[2018-06-04] MEDS ORDERED: DEXTROSE 50% SYRINGE 50 ML IV PRN (21:45)
[2018-06-04 22:45] VITALS: BP 117/40
[2018-06-04] MEDS ORDERED: NON-FORMULARY MEDICATION ([Eliquis] 5 MG) PO SCH (23:00)
[2018-06-04] MEDS: APIXABAN 5 MG TABLET PO SCH (23:31)
[2018-06-05] VITALS (8 sets, daily range): BP systolic 118–154; BP diastolic 56–68
[2018-06-05 06:12] LABS: BASOPHILS # (AUTO) 0.1 (0.0-0.1); BASOPHILS % 0.5 % (0.0-1.0); EOSINOPHILS # (AUTO) 0.3 (0.0-0.4); EOSINOPHILS % 2.4 % (0.0-6.0); HEMATOCRIT 34.2 % (38.2-49.6); HEMOGLOBIN 10.9 g/dL (14.0-18.0); MEAN CORPUSCULAR HEMOGLOBIN 31.1 pg (28-32); MEAN CORPUSCULAR HGB CONC 31.9 g/dL (31-35); MEAN CORPUSCULAR VOLUME 97.7 fL (81-99); MONOCYTES # (AUTO) 1.1 (0.2-0.8); MONOCYTES % 9.9 % (4.4-11.3); NEUTROPHILS # (AUTO) 8.4 (2.1-6.9); NEUTROPHILS % 77.6 % (38.7-80.0); PLATELET COUNT 171 x10e3/uL (140-360); RED CELL DISTRIBUTION WIDTH 13.8 % (11.7-14.4)
[2018-06-05 06:33] LABS: ANION GAP 12.6 mmol/L (8-16); POTASSIUM 4.6 mmol/L (3.5-5.1)
[2018-06-05 07:22] LABS: CREATININE, SERUM 1.73 mg/dL (0.72-1.25)
[2018-06-05] MEDS ORDERED: NON-FORMULARY MEDICATION ([Eliquis] 5 MG) PO SCH (09:00)
[2018-06-05] MEDS ORDERED: APIXABAN 5 MG TABLET PO SCH (09:00)
[2018-06-05] MEDS: VANCOMYCIN 1GM/NS 250 ML 250 ML IV SCH (09:30)
[2018-06-05] MEDS: APIXABAN 5 MG TABLET PO SCH ×2 (09:30→17:40)
[2018-06-05] MEDS: INSULIN REGULAR, HUMAN 100 UNIT/1 ML 3ML VIAL SQ SCH ×4 (09:30→21:00)
[2018-06-05] MEDS ORDERED: TIZANIDINE HCL 4 MG TAB PO PRN (10:45)
[2018-06-05] MEDS: DIGOXIN 0.125 MG TAB PO SCH (12:30)
[2018-06-05] MEDS: METOPROLOL TARTRATE 25 MG TAB PO SCH (12:30)
[2018-06-05] MEDS: AMIODARONE HCL 200 MG TAB PO SCH (12:30)
[2018-06-05] MEDS: METOCLOPRAMIDE HCL 10 MG TAB PO SCH ×2 (12:30→17:40)
[2018-06-05] MEDS: BUPROPION HCL 150 MG TABCR PO SCH (12:30)
[2018-06-05] MEDS: CEFEPIME HCL 1 GM VIAL IV SCH (12:35)
--- NOTE | 2018-06-05 12:40 | History and Physical ---
PRIMARY CARE PHYSICIAN: Dr. Rm Parham. CHIEF COMPLAINT: Left foot pain. HISTORY: This is a 77-year-old male who came to the hospital because of left foot pain. The left foot has redness in the extensive surface of both upper, lower, and bottom of the toes. The patient has no sign of open wound. The patient is otherwise stable. He does have significant peripheral vascular disease and also congestive heart failure. He is pending for an ICD placement. The patient is otherwise stable at this time. PAST MEDICAL HISTORY 1. Diabetes type 2 on insulin therapy. 2. Coronary artery disease. 3. Congestive heart failure with cardiomyopathy. 4. Peripheral vascular disease. 5. Hypertension. 6. Morbid obesity. 7. Atrial fibrillation. 8. CVA with no residual weakness. 9. Major depression anxiety disorder. PAST SURGICAL HISTORY: 1. Appendectomy. 2. Carpal tunnel syndrome. 3. Cholecystectomy. 4. Hemorrhoidectomy. SOCIAL HISTORY: The patient does not smoke or use alcohol. No recreational drug use. ALLERGIES: TO PENICILLIN, ADHESIVE, HYDROMORPHONE, AND LATEX. HOME MEDICATIONS: List is reviewed. REVIEW OF SYSTEMS: Left foot pain. PHYSICAL EXAMINATION VITAL SIGNS: Temperature is 98, blood pressure 118/59, pulse rate 67, respirations 18. GENERAL: The patient is in no acute distress. HEENT: Normocephalic, atraumatic, and anicteric. NECK: Supple grossly. PULMONARY: Diminished breath sounds. CARDIOVASCULAR: S1 and S2. Irregularly irregular rate control. The patient is wearing a life vest. ABDOMEN: Morbidly obese. EXTREMITIES: There is no edema. There is chronic venous skin changes. Right foot is stable. Left foot show redness along the toe and the distal surface of the foot both on the dorsal and the ventral surface. NEUROLOGIC: No focal deficits. LABORATORY: Sodium is 133, potassium 4.6, chloride 96, bicarb 29, BUN 38, creatinine 1.7, glucose 248. WBC is 10.7, hemoglobin 11, hematocrit 34, and platelets 171. Left foot pain. This is most likely secondary to peripheral vascular disease. I did not see any sign of infection. He does have a dry chronic ulcer on the plantar surface of the lateral foot area. No drainage. No redness surrounding. Neurologic exam, there is no focal deficits. X-ray of the left foot showed no acute abnormality. No radiographic evidence of osteomyelitis. IMPRESSION 1. Peripheral vascular disease, most likely the left foot. 2. Multiple chronic baseline problem. 3. Diabetes type 2, on insulin therapy. 4. Cardiomyopathy, pending for ICD placement per patient. PLAN: Continue with current treatment. I will obtain an arterial Doppler of the left lower extremity. We will consult Dr. Ramirez for his recommendation. Resume home medication. We will follow up on Dr. Ramirez recommendation, pending that, we will continue to keep the patient on observation and if needed, we will admit the patient for any procedures. We will monitor the patient closely at this time. Job#: [id number] PUN
[2018-06-05] MEDS: INSULIN LISPRO 100 UNIT/1 ML 3ML VIAL SQ SCH ×2 (14:00→17:40)
--- NOTE | 2018-06-05 14:51 | Consultation ---
DATE OF CONSULTATION: REQUESTING PHYSICIAN: Dr. Corbett. REASON FOR CONSULT: Leg pain. HISTORY OF PRESENTING ILLNESS: Mr. Almeida is a 77-year-old gentleman with past medical history as listed below, apparently developed some pain in his left foot with some redness on Thursday, which got worse. He went to see his PCP who sent him to the emergency room. Patient has history of PAD and also history of cardiomyopathy, wears a LifeVest, and is being evaluated for an ICD placement. Denies any chest pain or unusual shortness of breath. No abdominal pain, vomiting, or diarrhea. REVIEW OF SYMPTOMS CONSTITUTIONAL: Has some fatigue and weakness. HEENT: No headache, blurring of vision, seizures, syncope. CARDIOVASCULAR: No chest pain, unusual dyspnea, orthopnea, or PND. RESPIRATORY: No cough, fever, or expectoration. GI: No abdominal pain, vomiting, or diarrhea. : No dysuria, frequency, or incontinence. ALLERGIES: LATEX, HYDROMORPHONE, ADHESIVES, AND PENICILLIN. MEDICATIONS: See list. PAST MEDICAL HISTORY 1. History of CAD. 2. History of cardiomyopathy/CHF with depressed LV function with a LifeVest. 3. History of diabetes mellitus. 4. History of hypertension. 5. History of PAD. 6. History of atrial fibrillation. 7. History of CVA. 8. History of depression and anxiety. PAST SURGICAL HISTORY 1. History of carpal tunnel surgery. 2. History of appendectomy. 3. History of hemorrhoidectomy. 4. History of cholecystectomy. SOCIAL HISTORY: Does not smoke or drink. FAMILY HISTORY: Noncontributory. PHYSICAL EXAMINATION GENERAL: Slightly obese gentleman. Awake, alert, not in any obvious distress. VITAL SIGNS: Heart rate is 76, blood pressure is 134/61, respiratory rate 16. HEENT: Atraumatic. NECK: No JVD or bruit. No thyromegaly. No lymphadenopathy. CARDIOVASCULAR: First and second heart sounds heard. No murmurs, rubs, or gallops appreciated. CHEST: Decreased air entry at the bases. No adventitious sounds appreciated. ABDOMEN: Obese, nontender. EXTREMITIES: Mild erythema of his left foot and has discoloration of his feet. LABORATORY DATA: Sodium is 133, potassium 4.6, chloride is 96, bicarb is 29, BUN is 38, creatinine 1.7, glucose 246. Hemoglobin is 10.9, hematocrit 34.2, platelets are 171, white count is 10.7. IMPRESSION 1. Left foot pain. 2. Peripheral artery disease. 3. Cardiomyopathy/congestive heart failure, chronic, systolic. 4. History of diabetes mellitus. 5. History of hypertension. 6. History of atrial fibrillation. 7. History of cerebrovascular accident. 8. History of coronary artery disease. PLAN 1. Get arterial Doppler to rule out significant stenosis. 2. Patient has a LifeVest, is pending ICD placement. 3. Continue with his current medications. 4. Further cardiac workup depending on clinical course. 5. Patient is on apixaban, can continue the same for now. 6. Discussed my impression and plan of management with patient and he understands, also discussed with his daughter who was at the bedside. As always, I appreciate and thank you very much for your referrals. Job#: [id number] LPA
[2018-06-05] MEDS ORDERED: MUPIROCIN 2% OINT 22 GM TUBE TOP SCH (17:00)
[2018-06-05] MEDS: OXYBUTYNIN CHLORIDE 5 MG TAB PO SCH (17:40)
[2018-06-05] MEDS: INSULIN DETEMIR 100 UNIT/ML PEN SQ SCH (21:18)
[2018-06-06] VITALS (8 sets, daily range): BP systolic 127–159; BP diastolic 52–69
[2018-06-06] MEDS: CEFEPIME HCL 1 GM VIAL IV SCH ×3 (00:03→23:47)
[2018-06-06] MEDS: APIXABAN 5 MG TABLET PO SCH ×2 (09:20→17:00)
[2018-06-06] MEDS: METOPROLOL TARTRATE 25 MG TAB PO SCH (09:20)
[2018-06-06] MEDS: VANCOMYCIN 750MG/NS 150ML IVPB 150 ML IV SCH (09:20)
[2018-06-06] MEDS: DIGOXIN 0.125 MG TAB PO SCH (09:20)
[2018-06-06] MEDS: METOCLOPRAMIDE HCL 10 MG TAB PO SCH ×3 (09:20→16:30)
[2018-06-06] MEDS: OXYBUTYNIN CHLORIDE 5 MG TAB PO SCH ×2 (09:20→17:30)
[2018-06-06] MEDS: BUPROPION HCL 150 MG TABCR PO SCH (09:20)
[2018-06-06] MEDS: AMIODARONE HCL 200 MG TAB PO SCH (09:20)
[2018-06-06] MEDS: INSULIN LISPRO 100 UNIT/1 ML 3ML VIAL SQ SCH ×6 (09:20→21:00)
[2018-06-06] MEDS ORDERED: DEXTROSE 50% SYRINGE 50 ML IV PRN (09:45)
[2018-06-06] MEDS: MORPHINE SULFATE 2 MG/ML SYR IV PRN (11:25)
--- NOTE | 2018-06-06 14:52 | Progress Note ---
DATE: June 06, 2018 SUBJECTIVE: Patient seen at bedside, doing better. Still having some discomfort to the left lower extremity with decreased pain. OBJECTIVE VITAL SIGNS: Afebrile, pulse rate 54, respirations 18, blood pressure 127/57, and O2 saturation 93%. EXTREMITIES: Lower extremity arterial Doppler results were reviewed, revealing decreased flow to the distal anterior tibial artery with monophasic waveforms to the posterior tibial. Ulcerations to the left lower extremity healing slowly, down to subcutaneous tissue, 1.5 cm in diameter sub 5th metatarsophalangeal joint and 3 cm in diameter to the left heel. ASSESSMENT: Multiple grade 2 ulcerations with peripheral arterial disease. PLAN: We will continue Bactroban ointment. Continue offloading with offloading boots. Continue IV antibiotics. We will continue to follow. Job#: [id number] LPA
[2018-06-06] MEDS: MUPIROCIN 2% OINT 22 GM TUBE TOP SCH (21:00)
[2018-06-06] MEDS: INSULIN DETEMIR 100 UNIT/ML PEN SQ SCH (21:20)
[2018-06-07] VITALS (7 sets, daily range): BP systolic 114–137; BP diastolic 53–63
[2018-06-07 05:18] LABS: INR 1.18
[2018-06-07 05:19] LABS: PARTIAL THROMBOPLASTIN TIME 34.7 seconds (23.8-35.5)
[2018-06-07 05:25] LABS: ANION GAP 11.8 mmol/L (8-16); CALCIUM 9.2 mg/dL (8.4-10.2); CREATININE, SERUM 1.43 mg/dL (0.72-1.25); POTASSIUM 4.8 mmol/L (3.5-5.1)
[2018-06-07] MEDS: INSULIN LISPRO 100 UNIT/1 ML 3ML VIAL SQ SCH ×7 (07:30→21:13)
[2018-06-07] MEDS: METOCLOPRAMIDE HCL 10 MG TAB PO SCH ×3 (07:30→16:35)
[2018-06-07] MEDS: METOPROLOL TARTRATE 25 MG TAB PO SCH (09:00)
[2018-06-07] MEDS: AMIODARONE HCL 200 MG TAB PO SCH (09:00)
[2018-06-07] MEDS: OXYBUTYNIN CHLORIDE 5 MG TAB PO SCH ×2 (09:00→16:35)
[2018-06-07] MEDS: BUPROPION HCL 150 MG TABCR PO SCH (09:00)
[2018-06-07] MEDS: DIGOXIN 0.125 MG TAB PO SCH (09:00)
--- NOTE | 2018-06-07 09:17 | Progress Note ---
DATE: June 07, 2018 SUBJECTIVE: Patient at bedside accompanied by daughter, having an ultrasound of his heart. Denies any history of fever, chills, nausea or vomiting. Decreased pain to the left lower extremity. OBJECTIVE: Vitals: Afebrile, pulse rate 64, respirations 21, blood pressure 127/61, O2 saturation 98%. Labs: White blood cell count 10.7. Ulceration to the left lower extremity is stable. Some necrotic scab noted. Negative foul smell with periwound cellulitis present. Pedal pulses are diminished greatly to both the AT and PT arteries. ASSESSMENT: Peripheral artery disease with multiple grade-2 ulcers with periwound cellulitis. PLAN: Will continue offloading with offloading boots. Continue Bactroban ointment. Continue cefepime IV piggyback. Will continue to follow. Patient will be having angiogram and possible angioplasty later on today. Job#: [id number]
[2018-06-07] MEDS: VANCOMYCIN 750MG/NS 150ML IVPB 150 ML IV SCH (09:41)
[2018-06-07] MEDS: CEFEPIME HCL 1 GM VIAL IV SCH (11:55)
[2018-06-07] MEDS: MUPIROCIN 2% OINT 22 GM TUBE TOP SCH ×2 (12:16→21:13)
[2018-06-07] MEDS: MORPHINE SULFATE 2 MG/ML SYR IV PRN (13:20)
[2018-06-07] MEDS: INSULIN DETEMIR 100 UNIT/ML PEN SQ SCH (21:13)
[2018-06-08] VITALS: BP_SYST 136; BP_SYST 143; BP_DIAS 61; BP_DIAS 62
[2018-06-08] MEDS: CEFEPIME HCL 1 GM VIAL IV SCH ×3 (00:42→23:45)
[2018-06-08] MEDS: MORPHINE SULFATE 2 MG/ML SYR IV PRN ×2 (03:40→14:28)
[2018-06-08] MEDS ORDERED: MIDAZOLAM HCL 2 MG/2 ML VIAL ONE ×3 (06:48→11:10)
[2018-06-08] MEDS ORDERED: SODIUM CHLORIDE 0.9% 1000ML 1,000 ML ONE ×2 (06:49→10:28)
[2018-06-08] MEDS ORDERED: LIDOCAINE HCL 2% LOCAL 20 ML VIAL ONE ×2 (06:49→10:27)
[2018-06-08] MEDS ORDERED: HEPARIN SOD/SOD CHLORIDE 0 ML ONE (06:49)
[2018-06-08] MEDS ORDERED: FENTANYL CITRATE/PF 100MCG/2 ML INJ ONE ×2 (06:49→10:27)
[2018-06-08] MEDS ORDERED: IOPAMIDOL 300MG/ML 100 ML INFUS..BTL IV ONE ×2 (06:49→10:27)
[2018-06-08] MEDS: INSULIN LISPRO 100 UNIT/1 ML 3ML VIAL SQ SCH ×7 (07:30→22:04)
[2018-06-08] MEDS: METOCLOPRAMIDE HCL 10 MG TAB PO SCH ×3 (07:30→16:59)
[2018-06-08 08:02] VITALS: BP 126/63
[2018-06-08] MEDS: OXYBUTYNIN CHLORIDE 5 MG TAB PO SCH ×2 (08:15→17:00)
[2018-06-08] MEDS: AMIODARONE HCL 200 MG TAB PO SCH (08:15)
[2018-06-08] MEDS: DIGOXIN 0.125 MG TAB PO SCH (08:15)
[2018-06-08] MEDS: BUPROPION HCL 150 MG TABCR PO SCH (08:16)
[2018-06-08] MEDS: METOPROLOL TARTRATE 25 MG TAB PO SCH (08:16)
[2018-06-08 08:21] VITALS: BP 126/63
[2018-06-08] MEDS: VANCOMYCIN 750MG/NS 150ML IVPB 150 ML IV SCH (09:00)
--- NOTE | 2018-06-08 09:35 | Progress Note ---
DATE: June 08, 2018 SUBJECTIVE: Patient seen at bedside accompanied by multiple family members. Ready to possibly have an angiogram with angioplasty. OBJECTIVE: Vitals: Afebrile. Pulse rate 76, respirations 20. Blood pressure 126/63, O2 saturation 96%. Labs noted. Ulcerations to the left lower extremity are stable. Has grade-2 ulcers times 2, 1 cm to 1.5 cm sub-5th metatarsophalangeal joint and a grade-2/possibly 3 ulceration to the posterior plantar aspect of the left heel measuring more than 3 to 3.5 cm in diameter. Periwound cellulitis is present. No foul smell. Pedal pulses are diminished. Positive edema noted to both lower extremities. ASSESSMENT: Peripheral artery disease and diabetic neuropathy with grade 2 and 3 ulcerations, left foot. PLAN: Will continue offloading. Continue applying Bactroban ointment with dilute wet-to-dry Betadine. Continue IV antibiotics such as cefepime and vancomycin. Will continue to follow. Job#: [id number]
[2018-06-08] MEDS: MUPIROCIN 2% OINT 22 GM TUBE TOP SCH ×2 (09:37→22:04)
[2018-06-08] MEDS ORDERED: HEPARIN SOD/SOD CHLORIDE 2,000 ML ONE (10:27)
[2018-06-08 12:13] VITALS: BP 130/58
[2018-06-08 17:10] VITALS: BP 156/78
[2018-06-08 20:00] VITALS: BP 137/60
[2018-06-08] MEDS: INSULIN DETEMIR 100 UNIT/ML PEN SQ SCH (22:04)
[2018-06-09] VITALS (8 sets, daily range): BP systolic 106–155; BP diastolic 52–93
[2018-06-09 05:25] LABS: BASOPHILS # (AUTO) 0.1 (0.0-0.1); BASOPHILS % 0.4 % (0.0-1.0); EOSINOPHILS # (AUTO) 0.4 (0.0-0.4); EOSINOPHILS % 3.8 % (0.0-6.0); HEMATOCRIT 34.3 % (38.2-49.6); LYMPHOCYTES # (AUTO) 0.8 (1.0-3.2); MEAN CORPUSCULAR HEMOGLOBIN 31.8 pg (28-32); MEAN CORPUSCULAR HGB CONC 32.1 g/dL (31-35); MEAN CORPUSCULAR VOLUME 99.1 fL (81-99); MONOCYTES # (AUTO) 1.2 (0.2-0.8); MONOCYTES % 10.3 % (4.4-11.3); NEUTROPHILS # (AUTO) 9.1 (2.1-6.9); NEUTROPHILS % 77.8 % (38.7-80.0); PLATELET COUNT 165 x10e3/uL (140-360); RED BLOOD COUNT 3.46 x10e6/uL (4.3-5.7); RED CELL DISTRIBUTION WIDTH 14.1 % (11.7-14.4)
[2018-06-09 06:09] LABS: ANION GAP 12.5 mmol/L (8-16); CALCIUM 9.2 mg/dL (8.4-10.2); CREATININE, SERUM 1.48 mg/dL (0.72-1.25); POTASSIUM 4.5 mmol/L (3.5-5.1)
[2018-06-09] MEDS: INSULIN LISPRO 100 UNIT/1 ML 3ML VIAL SQ SCH ×7 (07:30→20:20)
[2018-06-09] MEDS: AMIODARONE HCL 200 MG TAB PO SCH (08:28)
[2018-06-09] MEDS: METOCLOPRAMIDE HCL 10 MG TAB PO SCH ×3 (08:28→17:28)
[2018-06-09] MEDS: OXYBUTYNIN CHLORIDE 5 MG TAB PO SCH ×2 (08:29→17:29)
[2018-06-09] MEDS: BUPROPION HCL 150 MG TABCR PO SCH (08:29)
[2018-06-09] MEDS: METOPROLOL TARTRATE 25 MG TAB PO SCH (08:29)
[2018-06-09] MEDS: DIGOXIN 0.125 MG TAB PO SCH (08:29)
[2018-06-09] MEDS: VANCOMYCIN 750MG/NS 150ML IVPB 150 ML IV SCH (09:12)
[2018-06-09] MEDS ORDERED: SODIUM CHLORIDE 0.9% 250ML 250 ML ONE (09:14)
--- NOTE | 2018-06-09 09:14 | Progress Note ---
DATE: June 09, 2018 SUBJECTIVE: Patient is at bedside. Doing okay. No distress. Denies any history of fever, chills, nausea, or vomiting. OBJECTIVE VITAL SIGNS: Afebrile, pulse rate 74, respirations 18, blood pressure 155/67, O2 saturation 95%. EXTREMITIES: Ulceration to the left lower extremity stable. Grade 2/3 ulceration, left heel. Grade 2 ulceration, plantar aspect, 5th metatarsophalangeal joint measuring less than 1.5 cm in diameter. Pedal pulses are diminished. Patient was not able to get an angioplasty done secondary to blockages to multiple vessels at different levels. LABS: Show a white blood cell count at 11.7, hemoglobin 11, hematocrit 34.3 with a platelet count of 165,000. ASSESSMENT: Peripheral artery disease with grade 2 and grade 3 ulcer, left foot. PLAN: Will continue offloading. Continue Bactroban ointment and Santyl to the affected area covered by a light Betadine wet-to-dry dressing. Continue offloading. Continue IV cefepime and vanco. Will continue to follow. Job#: [id number] TN
[2018-06-09] MEDS: COLLAGENASE 5 GM TUBE TOP SCH (10:29)
[2018-06-09] MEDS: MORPHINE SULFATE 2 MG/ML SYR IV PRN (10:29)
[2018-06-09] MEDS: MUPIROCIN 2% OINT 22 GM TUBE TOP SCH (10:29)
[2018-06-09] MEDS: CEFEPIME HCL 1 GM VIAL IV SCH ×2 (11:56→23:48)
[2018-06-09] MEDS: INSULIN DETEMIR 100 UNIT/ML PEN SQ SCH (20:20)
[2018-06-10] VITALS (7 sets, daily range): BP systolic 123–148; BP diastolic 54–66
[2018-06-10] MEDS: INSULIN LISPRO 100 UNIT/1 ML 3ML VIAL SQ SCH ×7 (07:30→20:49)
[2018-06-10] MEDS: BUPROPION HCL 150 MG TABCR PO SCH (09:13)
[2018-06-10] MEDS: MORPHINE SULFATE 2 MG/ML SYR IV PRN (09:13)
[2018-06-10] MEDS: VANCOMYCIN 750MG/NS 150ML IVPB 150 ML IV SCH (09:14)
[2018-06-10] MEDS: OXYBUTYNIN CHLORIDE 5 MG TAB PO SCH ×2 (09:14→16:09)
[2018-06-10] MEDS: AMIODARONE HCL 200 MG TAB PO SCH (09:14)
[2018-06-10] MEDS: METOCLOPRAMIDE HCL 10 MG TAB PO SCH ×3 (09:14→16:09)
[2018-06-10] MEDS: DIGOXIN 0.125 MG TAB PO SCH (09:14)
[2018-06-10] MEDS: METOPROLOL TARTRATE 25 MG TAB PO SCH (09:14)
[2018-06-10] MEDS: COLLAGENASE 5 GM TUBE TOP SCH (11:21)
[2018-06-10] MEDS: MUPIROCIN 2% OINT 22 GM TUBE TOP SCH (11:21)
[2018-06-10] MEDS: CEFEPIME HCL 1 GM VIAL IV SCH ×2 (12:21→23:50)
[2018-06-10] MEDS: INSULIN DETEMIR 100 UNIT/ML PEN SQ SCH (20:49)
[2018-06-11] VITALS: BP 128/69
[2018-06-11 04:00] VITALS: BP 135/75
[2018-06-11 05:46] LABS: HEMATOCRIT 30.5 % (38.2-49.6); HEMOGLOBIN 9.9 g/dL (14.0-18.0); MEAN CORPUSCULAR HGB CONC 32.5 g/dL (31-35); MEAN CORPUSCULAR VOLUME 98.7 fL (81-99); PLATELET COUNT 169 x10e3/uL (140-360); RED BLOOD COUNT 3.09 x10e6/uL (4.3-5.7); RED CELL DISTRIBUTION WIDTH 14.1 % (11.7-14.4)
[2018-06-11 07:37] VITALS: BP 124/57
--- NOTE | 2018-06-11 07:45 | Diagnostic Imaging Report ---
Date and Time: 06/08/2018 Procedure: Left lower extremity diagnostic angiography. head sugar reprocess operator: Bibi Chang MD Secondary magnetic prospecting operator: Baldo Bell MD Pre-operative diagnosis: Nonhealing foot wound, osteomyelitis Post-operative diagnosis: Nonhealing foot wound, osteomyelitis, multilevel peripheral vascular disease Conscious Sedation: IV Fentanyl and Versed per nursing administration records The patient's heart rate and pulse oximetry were continuously monitored by the interventional nurse. Blood pressure was monitored at 5 minute intervals. Fluoroscopy time: 3.1 minutes Dose-area Product: 3417.7 cGycm2. Contrast used: 80 cc Isovue-300 Estimated blood loss: Less than 10 cc Specimens: None Implants: None Condition at completion: Stable Disposition: Returned to floor DISCUSSION: Informed consent for the procedure was obtained from the patient and documented in the medical record after discussion of risks and benefits. The patient was placed in the supine position on the angiographic table. The right groin was prepped and draped in the standard sterile fashion. 1% lidocaine was infiltrated into the skin and subcutaneous tissues for local anesthesia. Then under continuous sonographic guidance, a 21-gauge micropuncture needle was used to access the right common femoral artery. A 0.018-in. wire was advanced centrally under fluoroscopic guidance. The needle was exchanged for a 5 Maldivian micropuncture sheath and the wire upsized to a 0.035-in. J-wire, which was advanced into the lower abdominal aorta. A 5 Maldivian vascular sheath was advanced over the wire to secure the access. A 5 Maldivian flush catheter was advanced over the wire and positioned in the lower abdominal aorta. Digital subtraction angiography of the pelvis was performed. A 0.035-in. Glidewire advantage was advanced through the catheter and down into the left external iliac artery. The catheter was advanced over the wire and digital subtraction angiography of the left lower extremity was then performed at multiple stations, demonstrating no lesions amenable to endovascular intervention. The Glidewire advantage was reintroduced through the catheter. The catheter and wire were removed. Hemostasis was then she by deployment of a Mynx vascular closure device in the standard fashion after repeat sterile preparation of the groin. A sterile dressing was applied. The patient tolerated the procedure well without immediate complication. Findings: Widely patent distal abdominal aorta, bilateral common, and external iliac arteries, without significant stenosis. Patent left internal iliac artery. Anterior branch of the right internal iliac artery is not visualized and may be occluded. Diffusely diseased left superficial and profunda femoral artery with scattered foci of mild stenoses. Diffusely diseased popliteal artery with multifocal mild stenoses. Severe stenosis at the tibioperoneal trunk origin with occlusion proximally. Occluded posterior tibial artery and anterior tibial artery throughout the course. Peroneal artery reconstitutes from collaterals proximally and demonstrates multifocal moderate to severe stenoses and occludes at the level of the ankle. Findings were not amenable to angiographic intervention. IMPRESSION: Left lower extremity diagnostic angiography as above. No significant iliac inflow stenosis. Occlusion of the anterior and posterior tibial arteries throughout their course. Occlusion of the proximal tibioperoneal trunk. Peroneal artery demonstrates multifocal moderate to severe stenoses and occludes at the level of the ankle. Signed by: Dr. Bibi Chang MD on 06/11/2018 7:41 AM
[2018-06-11] MEDS: INSULIN LISPRO 100 UNIT/1 ML 3ML VIAL SQ SCH ×4 (08:00→12:00)
[2018-06-11] MEDS: METOCLOPRAMIDE HCL 10 MG TAB PO SCH ×2 (08:00→11:30)
[2018-06-11 08:20] LABS: BAND NEUTROPHILS % (MANUAL) 5 %; EOSINOPHILS % (MANUAL) 3 % (0-7); LYMPHOCYTES % (MANUAL) 4 % (19-48); MONOCYTES % (MANUAL) 9 % (3.4-9.0); NEUTROPHILS % (MANUAL) 79 % (40-74); PLATELET ESTIMATE ADEQUATE; PLATELET MORPHOLOGY COMMENT NORMAL; RBC MORPHOLOGY COMMENT NORMAL
[2018-06-11] MEDS: BUPROPION HCL 150 MG TABCR PO SCH (08:30)
[2018-06-11] MEDS: AMIODARONE HCL 200 MG TAB PO SCH (08:30)
[2018-06-11] MEDS: OXYBUTYNIN CHLORIDE 5 MG TAB PO SCH (08:30)
[2018-06-11] MEDS: DIGOXIN 0.125 MG TAB PO SCH (08:30)
[2018-06-11] MEDS: METOPROLOL TARTRATE 25 MG TAB PO SCH (08:30)
[2018-06-11] MEDS: VANCOMYCIN 750MG/NS 150ML IVPB 150 ML IV SCH (09:00)
[2018-06-11] MEDS: COLLAGENASE 5 GM TUBE TOP SCH (09:00)
[2018-06-11] MEDS: MUPIROCIN 2% OINT 22 GM TUBE TOP SCH (09:00)
--- NOTE | 2018-06-11 09:40 | Progress Note ---
DATE: June 11, 2018 SUBJECTIVE: Patient seen at bedside, doing well. Denies any history of fever, chills, nausea, vomiting. OBJECTIVE: VITAL SIGNS: Afebrile. Pulse rate 60, respiration 16, blood pressure 124/57, O2 saturation 97%. EXTREMITIES: Ulcerations to the left lower extremity healing. Necrotic scab noted to the heel becoming more superficial. Decreased periwound cellulitis. No drainage. Ulceration, sub-fifth metatarsal head also healing nicely. Less than 1.5 cm diameter with necrosis noted down to dermis and possibly subcutaneous. Pedal pulses are diminished to both the DP and PT. LABS: Noted. White blood cell count 12.4, hemoglobin 9.9 with a platelet count of 169,000. ASSESSMENT: Diabetic neuropathy, eczema with grade 3 and grade 2 ulceration. PLAN: Continue Santyl and Bactroban ointment. Continue offloading as best as possible. Okay to go home as far as my perspective on his foot care. Patient upon discharge is to follow up within a couple of weeks in the office. Job#: [id number]
[2018-06-11] MEDS: CEFEPIME HCL 1 GM VIAL IV SCH (11:30)
[2018-06-11 11:50] VITALS: BP 133/61
--- NOTE | 2018-06-11 14:52 | Discharge Summary ---
CONSULTANTS: 1. Dr. Raza Ramirez. 2. Dr. Jose Olivera. 3. Dr. Satnam Cheema. FINAL DIAGNOSES: 1. Bilateral foot infected diabetic foot ulcer. 2. Severe peripheral vascular disease. 3. Cardiomyopathy. SUMMARY: Patient is a 77-year-old male who came into the hospital because of left foot pain. The patient does have vascular disease with a circulatory problem, but he also had multiple infected diabetic foot ulcers both on the right and the left foot. The area is small. It is not with any drainage, but there is ulcer. The patient was seen by Dr. Satnam Cheema. Antibiotics given. He is doing much better now. The patient underwent angiogram of the lower extremity. He does have a vasculature problem, but no intervention. The patient is recommended to continue with his Eliquis. Patient is stable at this time. He will follow up Dr. Olivera for his ICD in the near future once his ulcer is healed up and no sign of infection. The patient is stable, discharged home today. He will take clindamycin for 10 days along with Bacid for prevention of diarrhea. His echocardiogram showed ejection fraction of 45%. Patient stable, discharged home today. Follow up with Dr. Olivera and Dr. Raza Ramirez along with his primary care physician, Dr. Rm Parham, as instructed. Job#: [id number] EV
== END 2018-06-11 16:03 | disposition home or self-care (01) | DRG 300 ==
LOC: ER 13:35 → ERHOLD 17:06 → IMCU 22:27 → OBSVTOIN 06-05 10:47 → MED/SURG3 06-08 14:49
PROVIDERS: ADMIT Internal Medicine; ATTEND Internal Medicine
PROC: B41D1ZZ Fluoroscopy of Aorta and Bilateral Lower Extremity Arteries using Low Osmolar Contrast (ICD-10-PCS; principal; 2018-06-08)
DX: I70.203 Unspecified atherosclerosis of native arteries of extremities, bilateral legs (principal); L03.116 Cellulitis of left lower limb; I50.22 Chronic systolic (congestive) heart failure; L97.429 Non-pressure chronic ulcer of left heel and midfoot with unspecified severity; L97.419 Non-pressure chronic ulcer of right heel and midfoot with unspecified severity; I13.0 Hypertensive heart and chronic kidney disease with heart failure and stage 1 through stage 4 chronic kidney disease, or unspecified chronic kidney disease; Z68.41 Body mass index [BMI] 40.0-44.9, adult; I70.92 Chronic total occlusion of artery of the extremities; I25.10 Atherosclerotic heart disease of native coronary artery without angina pectoris; I48.2 Chronic atrial fibrillation; Z86.73 Personal history of transient ischemic attack (TIA), and cerebral infarction without residual deficits; Z79.4 Long term (current) use of insulin; E66.01 Morbid (severe) obesity due to excess calories; E11.42 Type 2 diabetes mellitus with diabetic polyneuropathy; E11.621 Type 2 diabetes mellitus with foot ulcer; E11.22 Type 2 diabetes mellitus with diabetic chronic kidney disease; N18.3 Chronic kidney disease, stage 3 (moderate)
CPT/HCPCS: 36415; 74470; 75710; 80048; 80053; 80202; 81001; 82948; 85007; 85025; 85027; 85610; 85730; 87040; 93306; 93926; 96372; 99283; C1769; G0378; J0692; J2001; J2250; J2270; J2405; J3370; J7030; J7040; J7050; Q9967

== ENCOUNTER 2018-06-30 09:21 | Observation (INO) | payer OTHER ==
[~2018-06-30] VITALS: Ht 171.4 cm; Wt 108.4 kg
[~2018-06-30 09:21] MED LIST changes: +BUMETANIDE1 MG PO; +BUPROPION XL150 MG; +DIGOXIN125 MCG PO; +GLIPIZIDE5 MG PO; +LEVEMIR SQ; +METOCLOPRAMIDE10 MG PO; +OXYBUTYNIN CHLOR5 GM; +SPIRONOLACTONE50 MG PO
[2018-06-30 10:16] LABS: BASOPHILS # (AUTO) 0.1 (0.0-0.1); BASOPHILS % 0.5 % (0.0-1.0); EOSINOPHILS # (AUTO) 0.4 (0.0-0.4); EOSINOPHILS % 3.2 % (0.0-6.0); HEMATOCRIT 37.7 % (38.2-49.6); HEMOGLOBIN 12.2 g/dL (14.0-18.0); LYMPHOCYTES # (AUTO) 1.4 (1.0-3.2); LYMPHOCYTES % 10.6 % (18.0-39.1); MEAN CORPUSCULAR HEMOGLOBIN 32.1 pg (28-32); MEAN CORPUSCULAR HGB CONC 32.4 g/dL (31-35); MEAN CORPUSCULAR VOLUME 99.2 fL (81-99); MONOCYTES # (AUTO) 1.5 (0.2-0.8); MONOCYTES % 11.1 % (4.4-11.3); NEUTROPHILS % 74.1 % (38.7-80.0); PLATELET COUNT 214 x10e3/uL (140-360); RED CELL DISTRIBUTION WIDTH 14.9 % (11.7-14.4)
--- NOTE | 2018-06-30 10:24 | Diagnostic Imaging Report ---
PROCEDURE: A single AP view of the chest. COMPARISON: Patients [facility], DX, CHEST SINGLE (PORTABLE), 01/22/2018, 14:11. INDICATIONS: CONSTIPATION, PATIENT WEARING DEFIBULATOR VEST FINDINGS: Lines/tubes: Cardiac monitoring device and wires causes mild interference in interpretation. Lungs: Mild pulmonary vascular congestion. Pleura: There is no pleural effusion or pneumothorax. Heart and mediastinum: The heart is enlarged. Bones: No acute bony abnormality. IMPRESSION: Cardiomegaly with mild pulmonary vascular congestion. Christian Polanco D.O. Dictated by: Christian Polanco D.O. on 06/30/2018 at 10:35 Electronically approved by: Christian Polanco D.O. on 06/30/2018 at 10:35
[2018-06-30 10:47] LABS: ALBUMIN 3.3 g/dL (3.5-5.0); ALBUMIN/GLOBULIN RATIO 0.8 (0.8-2.0); ANION GAP 12.9 mmol/L (8-16); CALCIUM 9.5 mg/dL (8.4-10.2); CREATININE, SERUM 1.36 mg/dL (0.72-1.25); MAGNESIUM 2.4 MG/DL (1.3-2.1); POTASSIUM 4.9 mmol/L (3.5-5.1)
[2018-06-30 10:52] LABS: B-TYPE NATRIURETIC PEPTIDE2 184.9 pg/mL (0-100)
[2018-06-30 10:55] LABS: INR 1.2
[2018-06-30 10:56] LABS: PARTIAL THROMBOPLASTIN TIME 34.3 seconds (23.8-35.5)
[2018-06-30 10:57] LABS: PROTHROMBIN TIME 16.3 seconds (11.9-14.5)
[2018-06-30 11:11] LABS: CREATINE KINASE MB 1.1 ng/mL (0-5.0)
[2018-06-30] MEDS ORDERED: SODIUM CHLORIDE 0.9% 500ML 500 ML IV ONE (12:45)
[2018-06-30 12:48] LABS: CLARITY,URINE CLEAR (CLEAR); COLOR,URINE YELLOW (YELLOW); LEUKOCYTE ESTERASE ,URINE NEGATIVE (NEGATIVE)
[2018-06-30 12:49] LABS: BILIRUBIN,URINE NEGATIVE (NEGATIVE); KETONES,URINE NEGATIVE (NEGATIVE); NITRITE,URINE NEGATIVE (NEGATIVE); PROTEIN,URINE DIPSTICK NEGATIVE (NEGATIVE); URINE UROBILINOGEN 0.2 mg/dL (0.2 - 1)
[2018-06-30 12:59] LABS: BACTERIA,URINE FEW /HPF; EPITHELIAL CELLS,URINE FEW /LPF; RBC,URINE 0-5 /HPF (0-5); WBC,URINE (MAN) 0-5 /HPF (0-5)
[2018-06-30] MEDS ORDERED: ONDANSETRON HCL INJ 2 MG/ML VIAL IV NR (13:01)
[2018-06-30] MEDS ORDERED: MORPHINE SULFATE INJ 4 MG/ML INJ IV NR (13:15)
--- NOTE | 2018-06-30 15:27 | Diagnostic Imaging Report ---
PROCEDURE: CT ABDOMEN AND PELVIS WITH CONTRAST TECHNIQUE: The abdomen and pelvis were scanned utilizing a multidetector helical scanner from the diaphragm to the lesser trochanter after the IV administration of 100 cc of Isovue 370 and the oral administration of water. Coronal and sagittal multiplanar reformations were obtained. Low dose protocol was utilized. COMPARISON: None DLP: 820.62 mGy-cm INDICATIONS: CONSTIPATION FINDINGS: LOWER THORAX: Normal. HEPATOBILIARY: No focal hepatic lesions. Gallbladder is absent with mild biliary dilatation. SPLEEN: No splenomegaly. PANCREAS: No focal masses or ductal dilatation. ADRENALS: No adrenal nodules. KIDNEYS/URETERS: No hydronephrosis or solid mass lesions. There are 2 nonobstructing small left lower pole renal stones with the largest measuring 3 mm. PELVIC ORGANS/BLADDER: Unremarkable. PERITONEUM / RETROPERITONEUM: No free air or fluid. LYMPH NODES: No lymphadenopathy. VESSELS: Vascular calcification. GI TRACT: No distention or wall thickening. A moderate amount of stool present within the colon. BONES AND SOFT TISSUES: Degenerative changes of the spine. IMPRESSION: 1. Moderate amount of stool throughout the colon compatible with a constipated abdomen. 2. Nonobstructing left lower pole renal stones Christian Polanco D.O. Dictated by: Christian Polanco D.O. on 06/30/2018 at 15:38 Electronically approved by: Christian Polanco D.O. on 06/30/2018 at 15:38
[2018-06-30] MEDS ORDERED: SOD PHOSPHATE/SOD BIPHOSPHATE ENEMA 132 ML BTL PR PRN (17:00)
[2018-06-30] MEDS ORDERED: MORPHINE SULFATE 2 MG/ML SYR IV PRN (17:00)
[2018-06-30] MEDS ORDERED: ONDANSETRON HCL INJ 2 MG/ML VIAL IV PRN (17:00)
[2018-06-30] MEDS ORDERED: MORPHINE SULFATE INJ 4 MG/ML INJ IV PRN (17:00)
[2018-06-30] MEDS ORDERED: POLYETHYLENE GLYCOL 3350 17 GM PACK PO ONE (17:00)
--- NOTE | 2018-06-30 18:00 | NUR ---
report received from ER, patient arrived on floor on stretched. Alert and oriented, bed in lowest position, call adkins within reach
[2018-06-30 19:00] VITALS: BP 135/84
--- NOTE | 2018-06-30 19:05 | NUR ---
rounded with night stocker nurse, patient aware of change. Bed in lowest position, call adkins within reach.
[2018-06-30 19:17] VITALS: BP 135/84
[2018-06-30] MEDS ORDERED: SODIUM CHLORIDE 0.9% 50ML 50 ML ONE (19:55)
[2018-06-30] MEDS ORDERED: IOPAMIDOL 370 MG/ML 200 ML INFUS..BTL INJ ONE (19:55)
[2018-07-01] VITALS: BP 159/66
[2018-07-01] MEDS ORDERED: ULTRAM50 MG PO (02:51)
--- NOTE | 2018-07-01 04:30 | NUR ---
patient has been offered prn enema, and has declined this particular treatment. Will continue to monitor patient.
[2018-07-01 06:02] LABS: BASOPHILS % 0.3 % (0.0-1.0); EOSINOPHILS # (AUTO) 0.6 (0.0-0.4); EOSINOPHILS % 4.8 % (0.0-6.0); HEMATOCRIT 37.2 % (38.2-49.6); HEMOGLOBIN 11.6 g/dL (14.0-18.0); LYMPHOCYTES # (AUTO) 0.7 (1.0-3.2); LYMPHOCYTES % 6.3 % (18.0-39.1); MEAN CORPUSCULAR HEMOGLOBIN 31.5 pg (28-32); MEAN CORPUSCULAR HGB CONC 31.2 g/dL (31-35); MEAN CORPUSCULAR VOLUME 101.1 fL (81-99); MONOCYTES # (AUTO) 1.1 (0.2-0.8); MONOCYTES % 9.4 % (4.4-11.3); NEUTROPHILS % 78.7 % (38.7-80.0); PLATELET COUNT 180 x10e3/uL (140-360); RED BLOOD COUNT 3.68 x10e6/uL (4.3-5.7); RED CELL DISTRIBUTION WIDTH 15.4 % (11.7-14.4)
[2018-07-01 06:31] LABS: ALBUMIN 2.8 g/dL (3.5-5.0); ALBUMIN/GLOBULIN RATIO 0.8 (0.8-2.0); ANION GAP 13.6 mmol/L (8-16); CREATININE, SERUM 1.36 mg/dL (0.72-1.25); POTASSIUM 5.6 mmol/L (3.5-5.1)
--- NOTE | 2018-07-01 06:50 | NUR ---
rounded with the mini shifter nurse, patient aware of change. Patient in no distress, call adkins within reach and bed in lowest position.
--- NOTE | 2018-07-01 07:13 | NUR ---
patients potassium is 5.6. Voice message left on MD's phone. awaiting call back from MD. Will continue to monitor patient.
[2018-07-01 08:00] VITALS: BP 132/59
[2018-07-01 08:09] VITALS: BP 132/59
[2018-07-01] MEDS ORDERED: DEXTROSE 50% SYRINGE 50 ML IV PRN (08:45)
[2018-07-01] MEDS ORDERED: TIZANIDINE HCL 4 MG TAB PO PRN (08:45)
[2018-07-01] MEDS: POLYETHYLENE GLYCOL 3350 17 GM PACK PO SCH (09:00)
[2018-07-01] MEDS ORDERED: NON-FORMULARY MEDICATION ([Eliquis] 5 MG) PO SCH (09:00)
[2018-07-01] MEDS ORDERED: PEG (High)/E-LYTE SOLN 4,000 ML BTL PO ONE (09:30)
[2018-07-01] MEDS ORDERED: SOD POLYSTYRENE SULFONATE SUSP 15 GM/60 ML BTL PO NR (09:30)
--- NOTE | 2018-07-01 09:30 | NUR ---
SOCIAL WORK INITIAL ASSESSMENT Plating Equipment Tender to bedside to discuss plan of care with patient/family. CM/SW role and care transitions discussed. Anticipated discharge plan discussed along with duration of care. CM/SW discussed patients right to make decisions in care. CM/SW work hours given. Patient lives: IN OWN HOUSE WITH FAMILY Admit/Transfer: VIA HOME POA/Emergency contact: DAUGHTER AMANDA [phone] Current/Previous Home Health: NONE PCP/Follow-up Care: AZEB Current/Previous DME: [employer] Other Services: NONE Employment Status: RETIRED Areas of Concerns: NONE Referral Needs: NONE Education Needs: NONE IMM/BARROS given and signed (if applicable): BARROS Goal for discharge: RETURN HOME INDEPENDENTLY CM/SW left business card at the bedside with contact information. Name and number was also written on the patients whiteboard. Patient verbalized understanding of discussion. CM will follow-up with ongoing discharge and transition of care needs.
[2018-07-01] MEDS: DIGOXIN 0.125 MG TAB PO SCH (09:35)
[2018-07-01] MEDS: AMIODARONE HCL 200 MG TAB PO SCH (09:35)
[2018-07-01] MEDS: OXYBUTYNIN CHLORIDE 5 MG TAB PO SCH ×2 (09:35→17:20)
[2018-07-01] MEDS: APIXABAN 5 MG TABLET PO SCH ×2 (09:35→17:20)
[2018-07-01] MEDS: BUPROPION HCL 150 MG TABCR PO SCH (09:35)
[2018-07-01] MEDS: CLOPIDOGREL BISULFATE 75 MG TAB PO SCH (09:35)
[2018-07-01] MEDS: METOPROLOL TARTRATE 25 MG TAB PO SCH (09:35)
[2018-07-01] MEDS: GLIPIZIDE 5 MG TAB PO SCH ×2 (09:35→17:20)
[2018-07-01] MEDS: METOCLOPRAMIDE HCL 10 MG TAB PO SCH ×2 (11:30→17:20)
--- NOTE | 2018-07-01 12:00 | NUR ---
Patient states he is able to remove life vest and does not want to wear it. Patient is currently on telemetry and his heart is being monitored.
[2018-07-01] MEDS: INSULIN LISPRO 100 UNIT/1 ML 3ML VIAL SQ SCH ×5 (12:10→20:04)
[2018-07-01] MEDS: TRAMADOL HCL 50 MG TAB PO PRN (12:30)
[2018-07-01 12:41] VITALS: BP 140/73
[2018-07-01 17:03] VITALS: BP 124/64
--- NOTE | 2018-07-01 17:15 | NUR ---
WOUND CARE CONSULTATION - INITIAL EVALUATION Patient is a 77 year-old pleasant male who admitted for abdominal pain and constipation through the ER. Patient is on a diabetic diet and last order reflects he is on a clear liquid diet and currently undergoing bowel workup to relieve constipation. Upon head to toe assessment patient presented with left foot plantar diabetic foot ulcers previously being followed by Dr. Cheema. Patient verbalized he was supposed to follow up with him at his office for a follow up. HX: DM type II , Prostate Ca, Hemorrhoid Surgery, Tonsillectomy, Appendectomy, carpal tunnel surgery, left knee surgery, Lorie., Neck Pain. Labs: WBC: 13.51 RBC: 3.8 HgB: 11.6 AlB: 2.8 Glu: 235 Micro: Urine - No Growth Blood - No Growth Imaging: CT of ABD and Pelvis: Constipation. CXR - Cardiomegaly with Mild Pulmonary Vascular Congestion WOUNDS IDENTIFIED: Left Foot Plantar at 5th Met Head - DFU Grade 1 (0.6 x 0.6 x UTD) with Stable Eschar Left Foot Plantar Heel - DFU - Grade 1 - (4 x 2.8 x 0.2) 90% eschar , 10% Slough , 10% Granulation. RECOMMENDATION: 1. PEG SHOE to Left Foot. 2. Left Foot Plantar Ulcers - Iodosorb Gel and Cover with 4x4 Gauze and Wrap with Kerlix Daily. 3. HbA1C with next blood draw. Thank you Dr. Corbett for the consult. Addendum: 07/01/18 at 1734 by Tunde Ferrara RN Amended: Links added.
--- NOTE | 2018-07-01 18:30 | NUR ---
informed daughter home medications have been restarted aside from the home wound care routine. Educated daughter that the wound care team has seen the patient and put in their recommendations as to how the foot should be treated. Also notified the daughter a consult for Dr Cheema has been entered for him to follow up with the patient, for orders to be entered on how wound care should be further carried out. Daughter states that she does not agree with the way we are carrying out wound care for his foot and she will come up to the hospital to dress his foot as they do at home.
[2018-07-01] MEDS ORDERED: santyl TOP (18:43)
[2018-07-01] MEDS ORDERED: PROBIOTIC & AC1 EACH (18:43)
[2018-07-01] MEDS ORDERED: CLINDAMYCIN HC150 MG PO (18:43)
[2018-07-01] MEDS ORDERED: MUPIROCIN22 GM TOP (18:43)
[2018-07-01] MEDS ORDERED: BETADINE30 ML TOP (18:43)
--- NOTE | 2018-07-01 19:00 | NUR ---
rounded with the overnight caregiver nurse, patient aware of change. Patient in no distress, call adkins within reach.
[2018-07-01 20:00] VITALS: BP 103/51
--- NOTE | 2018-07-01 20:48 | NUR ---
GI doctor is on unit rounding with the patient. received new order from doctor. will continue to monitor patient.
[2018-07-01] MEDS ORDERED: NON-FORMULARY MEDICATION (Insulin Detemir (Levemir) 40 UNITS) SC SCH (21:00)
[2018-07-01] MEDS ORDERED: INSULIN DETEMIR 100 UNIT/ML PEN SQ SCH (21:00)
[2018-07-02] VITALS: BP 119/57
--- NOTE | 2018-07-02 02:00 | NUR ---
patient has been given soap suds enema. patient tolerated procedure well. Will monitor patient for bowel movements.
[2018-07-02 04:00] VITALS: BP 124/57
--- NOTE | 2018-07-02 04:30 | NUR ---
patient has had one large bowel movement. bowel movement is a mixture of formed and loose stools. will continue to monitor patient.
[2018-07-02 05:29] LABS: BASOPHILS # (AUTO) 0.1 (0.0-0.1); BASOPHILS % 0.4 % (0.0-1.0); EOSINOPHILS # (AUTO) 0.7 (0.0-0.4); EOSINOPHILS % 4.9 % (0.0-6.0); HEMATOCRIT 37.3 % (38.2-49.6); HEMOGLOBIN 11.9 g/dL (14.0-18.0); LYMPHOCYTES # (AUTO) 0.8 (1.0-3.2); LYMPHOCYTES % 5.8 % (18.0-39.1); MEAN CORPUSCULAR HGB CONC 31.9 g/dL (31-35); MEAN CORPUSCULAR VOLUME 100.3 fL (81-99); MONOCYTES # (AUTO) 1.4 (0.2-0.8); MONOCYTES % 9.6 % (4.4-11.3); NEUTROPHILS # (AUTO) 11.2 (2.1-6.9); NEUTROPHILS % 78.9 % (38.7-80.0); PLATELET COUNT 195 x10e3/uL (140-360); RED BLOOD COUNT 3.72 x10e6/uL (4.3-5.7); RED CELL DISTRIBUTION WIDTH 15.2 % (11.7-14.4)
[2018-07-02 05:59] LABS: ALBUMIN 2.8 g/dL (3.5-5.0); ALBUMIN/GLOBULIN RATIO 0.7 (0.8-2.0); ANION GAP 15.9 mmol/L (8-16); CREATININE, SERUM 1.44 mg/dL (0.72-1.25); POTASSIUM 4.9 mmol/L (3.5-5.1)
--- NOTE | 2018-07-02 07:07 | NUR ---
Walking rounds done. Patient instructed to call for assistance as needed and verbalized understanding. AM assessment done. Call adkins within reach.
[2018-07-02] MEDS: INSULIN LISPRO 100 UNIT/1 ML 3ML VIAL SQ SCH ×4 (07:30→12:00)
[2018-07-02 08:15] VITALS: BP 143/65
[2018-07-02] MEDS: GLIPIZIDE 5 MG TAB PO SCH (08:30)
[2018-07-02] MEDS: METOCLOPRAMIDE HCL 10 MG TAB PO SCH ×2 (08:30→13:00)
[2018-07-02] MEDS ORDERED: CADEXOMER IODINE 30 GM TUBE TOP SCH (09:00)
--- NOTE | 2018-07-02 09:02 | Consultation ---
DATE OF CONSULTATION: July 01, 2018 CARDIOLOGY CONSULTATION REASON FOR CONSULTATION: History of Life Vest. HPI: This is a 77-year-old obese male with multiple medical problems that presented with abdominal pain. He stated times 1 week he did not have any bowel movement. He was clogged up that he came to the emergency room for evaluation. He was also scheduled yesterday for outpatient ICD placement, which was canceled due to the infection on his left foot. He denied any chest pain, any palpitations, any dizziness, any diaphoresis, or shortness of breath. PAST MEDICAL HISTORY: Cardiomyopathy with depressed LV function, CAD, diabetes, hypertension, PAD, AFib, CVA, depression, and anxiety, obesity, PVD, and left foot ulcer infection. PAST SURGICAL HISTORY: Appendectomy, carpal tunnel syndrome, cholecystectomy, hemorrhoidectomy. SOCIAL HISTORY: No smoking. No drinking. He lives at home with the . MEDICATIONS: See med list. ALLERGIES: HE IS ALLERGIC TO LATEX, HYDROMORPHONE, ADHESIVES, AND PENICILLIN. REVIEW OF SYSTEMS: Negative except as mentioned above. Is positive for constipation. PHYSICAL EXAMINATION VITAL SIGNS: Temperature 97, heart rate 58, blood pressure 124/57, respirations 18, oxygen saturation 97% on room. GENERAL: He is awake, alert and oriented times 3. HEENT: Mucous membrane moist. NECK: Supple. LUNGS: Bilateral clear to auscultation. CARDIOVASCULAR: Irregularly irregular. ABDOMEN: Soft. NEUROLOGICAL: Intact. He is able to move all extremities. EXTREMITIES: Bilateral lower extremities with trace edema on the right and also with infection on the left. LABS: Sodium 134, potassium 4, chloride 95, CO2 28, BUN 23, creatinine 1.44, glucose 88. White blood cells 14.2, hemoglobin 11.9, hematocrit 37.3, and platelet 195,000. PT 16.3, PTT 34.3 and INR 1.2. IMPRESSION 1. Constipation. 2. Hyperkalemia. 3. Left foot ulcer with infection. 4. Atrial fibrillation. 5. History of coronary artery disease with cardiomyopathy. 6. History of systolic congestive heart failure, chronic. 7. History of peripheral vascular disease and peripheral arterial disease. 8. He has a Life Vest and pending implantable cardioverter defibrillator placement when infection is better. PLAN 1. He is getting workup for the constipation and GOLYTELY. 2. Potassium got better today. It is 4.9. Will continue his home medications. 3. Heart rate is controlled, and he has been anticoagulated. 4. He was on the schedule for ICD placement, which was canceled due to infection on the left foot. Will continue medical management. Further cardiac workup pending clinical course. Thank you for this consultation. DICTATED BY SOTO MCCORD NP Job#: [id number] ALFREDO
[2018-07-02] MEDS: AMIODARONE HCL 200 MG TAB PO SCH (09:18)
[2018-07-02] MEDS: OXYBUTYNIN CHLORIDE 5 MG TAB PO SCH (09:18)
[2018-07-02] MEDS: APIXABAN 5 MG TABLET PO SCH (09:18)
[2018-07-02] MEDS: DIGOXIN 0.125 MG TAB PO SCH (09:18)
--- NOTE | 2018-07-02 09:18 | NUR ---
Met with Dr. Corbett. He stated he is discharging the pt home today.
[2018-07-02] MEDS: BUPROPION HCL 150 MG TABCR PO SCH (09:19)
[2018-07-02] MEDS: POLYETHYLENE GLYCOL 3350 17 GM PACK PO SCH (09:19)
[2018-07-02] MEDS: METOPROLOL TARTRATE 25 MG TAB PO SCH (09:19)
[2018-07-02] MEDS: CLOPIDOGREL BISULFATE 75 MG TAB PO SCH (09:19)
[2018-07-02] MEDS: TRAMADOL HCL 50 MG TAB PO PRN ×2 (09:30→16:07)
--- NOTE | 2018-07-02 09:53 | Discharge Summary ---
PRIMARY CARE PHYSICIAN: Dr. Rm Parham CONSULTANTS: Dr. Raza Ramirez and Dr. Satnam Cheema. FINAL DIAGNOSES 1. Severe constipation/obstipation, resolved. Patient had a large bowel movement for the past 2 days. 2. Hyperkalemia, most likely secondary to a combination of lisinopril and Aldactone and chronic kidney disease. 3. Hypotension, resolved. SUMMARY: This is a 77-year-old male with multiple medical problems, extensive coronary disease and congestive heart failure. The patient is stable now. He had a large bowel movement. He came in for constipation. He failed outpatient management, which he now received GOLYTELY, which he had a large bowel movement and he felt so much better. His potassium level was also improved with the stopping of the Aldactone. His potassium is 4.9. The patient does have chronic kidney disease. Adjustment of his medications was made. The patient will go home today. He will discontinue Aldactone 50 mg twice a day and increase the Bumex to 1 mg twice a day instead of once a day. Resume other home medications. New prescriptions again as follows: 1. Bumex 1 mg twice a day. 2. Senna-S 1 tablet b.i.d. 3. MiraLAX 17 g b.i.d. 4. GOLYTELY 1 L every week as needed for constipation. Four bottles and 3 refills. The patient is stable and discharged home today. Follow up with family physician, Dr. Rm Parham next week. Job#: [id number] UT
--- NOTE | 2018-07-02 10:30 | NUR ---
Patient has orders to be discharged home. Per patient his ride is unavailable until this afternoon. Dr. Cheema is okay with discharge.
[2018-07-02 11:00] VITALS: BP 143/65
[2018-07-02] MEDS ORDERED: bumex PO (11:37)
--- NOTE | 2018-07-02 11:40 | NUR ---
Per Dr. Ledesma he wants patient to have abdominal ultrasound prior to discharge and per Dr. Chelle WINCHESTER was notified.
[2018-07-02] MEDS ORDERED: SENNA LAXATIVE8.6 MG PO (11:44)
[2018-07-02] MEDS ORDERED: MIRALAX17 GM PO (11:45)
[2018-07-02] MEDS ORDERED: GOLYTELY SOLU4000 ML PO (11:46)
[2018-07-02 12:00] VITALS: BP 141/63
--- NOTE | 2018-07-02 12:55 | Progress Note ---
DATE: July 02, 2018 GASTROENTEROLOGY PROGRESS NOTE SUBJECTIVE: Patient has had several rounds of BMs since last night. He was seen by me yesterday. Detailed consult note was dictated. However, it has not been transcribed yet; therefore, it is not available in the chart. Patient had a rectal examination yesterday that showed impacted soft stool. He received a soap water enema with a successful evacuation of impacted rectal stool. He was given GoLYTELY with which he had several rounds of bowel movement since yesterday. His stool has been reported soft light brown. Patient denies any abdominal pain. He is likely going to go home today. REVIEW OF SYSTEMS GENERAL: No fever or chills. CARDIOVASCULAR: No chest pain or palpitation. RESPIRATORY: No cough or expectoration. MEDICATIONS: Have reviewed the MAR. He is on tramadol 50 mg q.6 h. as needed, metoprolol 12.5 mg daily, clopidogrel 75 mg daily, bupropion 150 mg daily, MiraLAX 17 g daily, apixaban 5 mg twice daily, oxybutynin 5 mg b.i.d., digoxin 0.125 mg daily, amiodarone 200 mg daily, metoclopramide 10 mg a.c., glipizide 5 mg b.i.d., insulin detemir 40 units nightly, insulin human lispro 12 units t.i.d., Zofran 4 mg q.4 h. IV as needed, morphine 2 mg IV q.4 h. as needed, insulin human lispro a.c., tizanidine 2 mg q.12 h. as needed. OBJECTIVE VITAL SIGNS: Temperature 96.2, pulse 78, respiration 14, blood pressure 143/65, oxygen saturation 98% on room air. GENERAL: Not in any apparent distress. HEENT: Oral mucosa is moist. Anicteric sclerae. ABDOMEN: Obese, soft, nondistended, nontender. No palpable mass or hernia. Positive bowel sounds. LAB: WBC 14.20, hemoglobin 11.9, hematocrit 37.3, and platelet count 195. Sodium 134, potassium 4.9, chloride 95, bicarb 28, BUN 23, creatinine 1.44. Liver enzymes showed total bilirubin 0.7, AST 58, ALT 103, alkaline phosphatase 207. IMPRESSION 1. Severe constipation, likely medication-induced as well as patient has a baseline slow transit constipation. 2. Acute abnormality of liver enzymes. Ultrasound ordered, is pending. 3. Leukocytosis. PLAN: Daily bowel regimen. Follow up the ultrasound report. Patient's liver enzymes are fluctuating. I think this could most likely be related to medication or due to underlying fatty liver. Ultrasound needs to be done to rule out any biliary obstruction before discharge. Job#: [id number] EV MTDD
--- NOTE | 2018-07-02 13:22 | Diagnostic Imaging Report ---
EXAM: Right upper quadrant abdominal ultrasound INDICATION: Right upper quadrant pain COMPARISON: CT Abdomen/Pelvis 06/30/2018. TECHNIQUE: Transverse and longitudinal images of the right upper quadrant abdomen were obtained FINDINGS: Liver: Size: Measures 14.2 cm in the right midclavicular line, normal Appearance: Normal echogenicity, smooth contour Mass: No focal masses Gallbladder: Status post cholecystectomy. Bile Ducts: Intrahepatic Ducts: No dilatation Extrahepatic Ducts: Common bile duct measures 0.3 cm, no dilatation Pancreas: Visualized portions of the pancreatic head, neck and proximal body are normal. Kidney: The right kidney measures 11.4 cm without evidence of hydronephrosis or stone. Vessels: Aorta: Visualized portions are normal Inferior Vena Cava: Visualized portions are normal Main Portal Vein: 0.5 cm, normal size with hepatopetal flow. Free Fluid: No evidence of ascites. IMPRESSION: No acute sonographic abnormality. Status post cholecystectomy. Normal CBD measurement without evidence of stone. Signed by: Dr. Bibi Chang MD on 07/02/2018 1:18 PM
[2018-07-02 16:00] VITALS: BP 129/59
--- NOTE | 2018-07-02 16:44 | NUR ---
Spoke to Dr. Valladares (covering for Dr. Ledesma) regarding abdominal U/S and liver enzymes results. Per Dr. Valladares patient may go home and follow up with Dr. Ledesma as an out patient.
--- NOTE | 2018-07-02 18:15 | NUR ---
IV dc'd, cath intact and small dressing applied. Patient discharged with written instructions and prescriptions. Daughter and patient verbalized understanding.
== END 2018-07-02 18:26 | disposition home or self-care (01) ==
LOC: ER 09:21 → ERHOLD 16:48 → IMCU 18:28
PROVIDERS: ADMIT Internal Medicine; ATTEND Internal Medicine
DX: K59.00 Constipation, unspecified (principal); E87.5 Hyperkalemia; I73.9 Peripheral vascular disease, unspecified; I50.22 Chronic systolic (congestive) heart failure; I25.10 Atherosclerotic heart disease of native coronary artery without angina pectoris; L97.529 Non-pressure chronic ulcer of other part of left foot with unspecified severity; D72.829 Elevated white blood cell count, unspecified; R79.89 Other specified abnormal findings of blood chemistry; Z91.040 Latex allergy status; Z88.0 Allergy status to penicillin; Z88.8 Allergy status to other drugs, medicaments and biological substances; Z91.048 Other nonmedicinal substance allergy status; I13.0 Hypertensive heart and chronic kidney disease with heart failure and stage 1 through stage 4 chronic kidney disease, or unspecified chronic kidney disease; N18.9 Chronic kidney disease, unspecified
CPT/HCPCS: 36415 ×3; 71045; 74177; 76705; 80053 ×3; 81001; 82550; 82553; 82948 ×3; 83605; 83690; 83735; 83880; 84443; 84484; 85025 ×3; 85610; 85730; 87040; 87086; 93005; 99284; G0378 ×3; J2270 ×2; J2405 ×2; J7040; Q9967

== ENCOUNTER → 2018-08-24 | Day surgery (SDC) | payer MEDICARE ==
[2018-08-23 12:23] LABS: BASOPHILS % 0.4 % (0.0-1.0); EOSINOPHILS # (AUTO) 0.3 (0.0-0.4); EOSINOPHILS % 2.7 % (0.0-6.0); HEMATOCRIT 36.9 % (38.2-49.6); HEMOGLOBIN 11.7 g/dL (14.0-18.0); LYMPHOCYTES # (AUTO) 1.1 (1.0-3.2); LYMPHOCYTES % 10.9 % (18.0-39.1); MEAN CORPUSCULAR HEMOGLOBIN 30.2 pg (28-32); MEAN CORPUSCULAR HGB CONC 31.7 g/dL (31-35); MEAN CORPUSCULAR VOLUME 95.3 fL (81-99); MONOCYTES # (AUTO) 1.2 (0.2-0.8); NEUTROPHILS # (AUTO) 7.5 (2.1-6.9); NEUTROPHILS % 73.6 % (38.7-80.0); PLATELET COUNT 181 x10e3/uL (140-360); RED BLOOD COUNT 3.87 x10e6/uL (4.3-5.7); RED CELL DISTRIBUTION WIDTH 14.6 % (11.7-14.4)
[2018-08-23 12:40] LABS: INR 1.05; PROTHROMBIN TIME 14.7 seconds (11.9-14.5)
[2018-08-23 12:45] LABS: ANION GAP 15.9 mmol/L (8-16); BLOOD UREA NITROGEN 22 mg/dL (7-26); BUN/CREATININE RATIO 19 (6-25); CALCIUM 9.3 mg/dL (8.4-10.2); CARBON DIOXIDE 28 mmol/L (22-29); CHLORIDE 99 mmol/L (98-107); CREATININE, SERUM 1.15 mg/dL (0.72-1.25); EST GLOMERULAR FILTRATION RATE > 60 ML/MIN (60-); GLUCOSE 70 mg/dL (74-118); POTASSIUM 3.9 mmol/L (3.5-5.1); SODIUM 139 mmol/L (136-145)
[2018-08-24] VITALS (10 sets, daily range): BP systolic 105–145; BP diastolic 43–59
[~2018-08-24] VITALS: Ht 170.2 cm; Wt 110.7 kg
[~2018-08-24] MED LIST changes: +BACITRACIN 50,000 UNIT VIAL ONE; +BETADINE30 ML TOP; -BUPROPION XL150 MG; +BUPROPION XL150 MG PO; +CLINDAMYCIN HC150 MG PO; +FENTANYL CITRATE/PF 100MCG/2 ML INJ ONE; +GOLYTELY SOLU4000 ML PO; +LIDOCAINE HCL 1% LOCAL INJ 20 ML VIAL ONE; +MIDAZOLAM HCL 2 MG/2 ML VIAL ONE; +MIRALAX17 GM PO; +MUPIROCIN22 GM TOP; +PROBIOTIC & AC1 EACH; +SENNA LAXATIVE8.6 MG PO; +SODIUM CHLORIDE 0.9% 1000ML 2,000 ML ONE; +SODIUM CHLORIDE 0.9% 500ML 500 ML ONE; +ULTRAM50 MG PO; +VANCOMYCIN 1GM/NS 250 ML 500 ML ONE; +bumex PO; +santyl TOP
--- NOTE | 2018-08-24 10:00 | NUR ---
0956 note actually occurred at 0906.
--- NOTE | 2018-08-24 12:43 | NUR ---
Luciano with [employer] at bedside to check device.
--- NOTE | 2018-08-24 12:48 | NUR ---
Bed rest complete. Luciano with [employer] stated device "looked great". Preparing patient for discharge.
--- NOTE | 2018-08-24 12:49 | Diagnostic Imaging Report ---
EXAMINATION: CHEST SINGLE (PORTABLE) INDICATION: Postoperative radiograph status post cardiac catheterization. COMPARISON: Chest radiograph 06/30/2018. FINDINGS: TUBES and LINES: Left sided dual lead pacemaker terminates over the expected position of the right ventricle appear LUNGS: There are bilateral perihilar and interstitial opacities. Airspace opacities are present throughout bilateral lungs, right greater than left. PLEURA: No pleural effusion or pneumothorax. HEART AND MEDIASTINUM: Mild enlargement of the cardiomediastinal silhouette. At this chronic calcifications of the aortic arch. BONES AND SOFT TISSUES: No acute osseous abnormality. UPPER ABDOMEN: No free air under the diaphragm. IMPRESSION: Multifocal airspace opacities which could represent alveolar edema or pneumonia in the appropriate clinical context. Follow-up chest radiograph is recommended to assess for resolution. Signed by: Dr. Bibi Chang MD on 08/24/2018 12:46 PM
--- NOTE | 2018-08-24 12:57 | NUR ---
IV to left hand removed and dressing applied per unit protocol. 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 Pressure dressing to left upper chest is clean,dry, and intact. No distress noted at time of discharge.
--- NOTE | 2018-08-24 23:04 | Operative Report ---
DATE OF PROCEDURE: August 24, 2018 PREPROCEDURE DIAGNOSES: 1. Congestive heart failure, class III. 2. 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 3. Left bundle-branch block. 4. Chronic persistent atrial fibrillation with slow ventricular response. POSTPROCEDURE DIAGNOSES: 1. Congestive heart failure, class III. 2. 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 3. Left bundle-branch block. 4. Chronic persistent atrial fibrillation with slow ventricular response. ESTIMATED BLOOD LOSS: 5 mL. COMPLICATIONS: None. PROCEDURES PERFORMED: 1. Biventricular cardiac defibrillator placement. 2. Moderate sedation. Moderate conscious sedation was provided under my direct supervision by a sedation-trained nurse. Sedation approximate time 40 minutes, Versed and fentanyl. There were no complications. See sedation form for details. DESCRIPTION OF PROCEDURE: After informed consent was obtained, patient was brought to the electrophysiology laboratory in a fasting, nonsedated state. Area over his chest was prepped and draped in the usual sterile fashion. Moderate sedation and prophylactic antibiotic were given, 1% lidocaine was used as local anesthetic, and a 3-cm skin incision was made in the left subclavicular area. Electrocautery, sharp and blunt dissection were used to reach the muscular fascia and a pocket was created for eventual implantation of the device. Vascular access was obtained x3 in the left axillary vein using the modified Seldinger technique under fluoroscopic guidance. The 9-Macanese and 9.5-Macanese sheaths were placed. The ventricular lead was advanced to the RV apex, R-wave 15, pacing 0.6 at 0.5, impedance 590. Coronary sinus was cannulated using AL2 catheter and Wholey wire. Coronary sinus angiogram demonstrated good posterolateral branch, successfully cannulated, pacing threshold 2.2 at 0.5, impedance 1400. Sheaths were removed from the body. Leads were secured to fascia using Ethibond. The pocket was irrigated with antibiotic solution using the pulse adjunct mathematics instructor. Hemostasis was meticulous. Leads were connected to the device, and entire ICD system placed in the pocket. Of note, no atrial lead was placed due to chronic atrial fibrillation. The incision was closed using absorbable sutures and Dermabond. Patient tolerated the procedure well. Procedure was deemed complete. SUMMARY OF HARDWARE IMPLANTED: 1. The new defibrillator is [employer], model #G158, [id number]. 2. The right ventricular lead is [employer] [id number], [id number]. 3. The left ventricular lead is [place] [employer] [id number], [id number]. A pin was connected to the atrial port. IMPRESSION: Successful biventricular cardiac defibrillator via left axillary vein. PLAN: 1. Routine postop monitoring on telemetry bed. 2. Chest x-ray. 3. Follow up in 2 weeks. Job#: [id number]
== END | disposition home or self-care (01) ==
LOC: CATH LAB 06:14
PROVIDERS: ATTEND Internal Medicine
DX: I11.0 Hypertensive heart disease with heart failure (principal); I50.22 Chronic systolic (congestive) heart failure; I44.7 Left bundle-branch block, unspecified; I42.0 Dilated cardiomyopathy; I48.1 Persistent atrial fibrillation; Z01.812 Encounter for preprocedural laboratory examination; Z88.0 Allergy status to penicillin; Z91.040 Latex allergy status; Z79.4 Long term (current) use of insulin; Z79.02 Long term (current) use of antithrombotics/antiplatelets; Z85.46 Personal history of malignant neoplasm of prostate
CPT/HCPCS: 33225; 33249; 36415; 71045; 80048; 85025; 85610; C1777; C1882; C1887; C1900; J2001; J2250; J3370; J7030; J7040

== ENCOUNTER 2018-12-02 13:11 | Inpatient (IN) | payer MEDICARE ==
[~2018-12-02] VITALS: Ht 170.2 cm; Wt 103.9 kg
[~2018-12-02 13:11] MED LIST changes: -BACITRACIN 50,000 UNIT VIAL ONE; -FENTANYL CITRATE/PF 100MCG/2 ML INJ ONE; -LIDOCAINE HCL 1% LOCAL INJ 20 ML VIAL ONE; -MIDAZOLAM HCL 2 MG/2 ML VIAL ONE; -SODIUM CHLORIDE 0.9% 1000ML 2,000 ML ONE; -SODIUM CHLORIDE 0.9% 500ML 500 ML ONE; -VANCOMYCIN 1GM/NS 250 ML 500 ML ONE
--- NOTE | 2018-12-02 13:20 | NUR ---
Received patient via wheelchair. AAOX4 to time, person, place, situation. Respirations even and unlabored. Dressing to left foot clean,dry, and intact. Oriented patient to room. Instructed to use call light for assistance. Voiced understanding.
[2018-12-02 13:43] VITALS: BP 141/63
[2018-12-02 13:58] VITALS: BP 141/63
[2018-12-02 14:06] VITALS: BP 141/63
[2018-12-02] MEDS ORDERED: POLYETHYLENE GLYCOL PO PRN (14:30)
[2018-12-02] MEDS ORDERED: TIZANIDINE HCL 4 MG TAB PO PRN (14:30)
[2018-12-02] MEDS: TRAMADOL HCL 50 MG TAB PO PRN (15:37)
[2018-12-02 16:00] VITALS: BP 141/63
[2018-12-02 16:45] LABS: BASOPHILS # (AUTO) 0.1 (0.0-0.1); BASOPHILS % 0.5 % (0.0-1.0); EOSINOPHILS # (AUTO) 0.2 (0.0-0.4); EOSINOPHILS % 1.8 % (0.0-6.0); HEMATOCRIT 35.3 % (38.2-49.6); HEMOGLOBIN 10.6 g/dL (14.0-18.0); LYMPHOCYTES # (AUTO) 0.8 (1.0-3.2); LYMPHOCYTES % 7.4 % (18.0-39.1); MEAN CORPUSCULAR HEMOGLOBIN 27.5 pg (28-32); MEAN CORPUSCULAR VOLUME 91.7 fL (81-99); MONOCYTES # (AUTO) 1.1 (0.2-0.8); MONOCYTES % 10.2 % (4.4-11.3); NEUTROPHILS # (AUTO) 8.4 (2.1-6.9); NEUTROPHILS % 79.7 % (38.7-80.0); PLATELET COUNT 188 x10e3/uL (140-360); RED BLOOD COUNT 3.85 x10e6/uL (4.3-5.7); RED CELL DISTRIBUTION WIDTH 15.7 % (11.7-14.4)
[2018-12-02] MEDS ORDERED: BUMETANIDE 1 MG TAB PO SCH (17:00)
[2018-12-02] MEDS: OXYBUTYNIN CHLORIDE 5 MG TAB PO SCH (17:00)
[2018-12-02] MEDS: GLIPIZIDE 5 MG TAB PO SCH (17:00)
[2018-12-02] MEDS ORDERED: NON-FORMULARY MEDICATION (Bumetanide 2 MG) PO SCH (17:00)
[2018-12-02] MEDS: INSULIN LISPRO 100 UNIT/1 ML 3ML VIAL SQ SCH (17:00)
[2018-12-02] MEDS: BUMETANIDE 1 MG TAB PO SCH (17:00)
[2018-12-02] MEDS: APIXABAN 5 MG TABLET PO SCH (17:00)
[2018-12-02] MEDS ORDERED: NON-FORMULARY MEDICATION ([Eliquis] 5 MG) PO SCH (17:00)
[2018-12-02 17:02] LABS: INR 1.13; PROTHROMBIN TIME 15.1 seconds (11.9-14.5)
[2018-12-02 17:05] LABS: ALBUMIN 2.8 g/dL (3.5-5.0); ALBUMIN/GLOBULIN RATIO 0.7 (0.8-2.0); ANION GAP 12.1 mmol/L (8-16); CALCIUM 9.1 mg/dL (8.4-10.2); CREATININE, SERUM 1.19 mg/dL (0.72-1.25); POTASSIUM 4.1 mmol/L (3.5-5.1)
[2018-12-02] MEDS ORDERED: CEFEPIME 1GM/NS 0.9% 50 ML 50 ML IV SCH (17:30)
[2018-12-02] MEDS ORDERED: SODIUM CHLORIDE 0.9% 250ML 250 ML ONE (17:37)
[2018-12-02] MEDS: VANCOMYCIN 1GM/NS 250 ML 250 ML IV SCH (17:50)
[2018-12-02] MEDS ORDERED: MEROPENEM 1GM 100 ML IV SCH (18:00)
--- NOTE | 2018-12-02 18:10 | NUR ---
Paged . Clarification for MRI received. Patient has a left pacemaker. See orders
--- NOTE | 2018-12-02 18:32 | NUR ---
Taken to CT via wheelchair. No s/s of acute distress noted. Report to be given to oncoming nurse
--- NOTE | 2018-12-02 19:29 | NUR ---
Patient received lying in bed. AAO x 3. Dressing to left foot CDI. Patient had no complaints of pain. Respirations even and non-labored. Fall precautions implemented. Patient instructed to call for assistance when needed. Call light within reach.
[2018-12-02 20:00] VITALS: BP 151/67
[2018-12-02] MEDS ORDERED: INSULIN DETEMIR 44 UNIT SC SCH (21:00)
[2018-12-02] MEDS: INSULIN GLARGINE 100 UNITS/ML VIAL SQ SCH (21:00)
[2018-12-02] MEDS ORDERED: METOCLOPRAMIDE HCL 10 MG TAB PO PRN (21:00)
[2018-12-02] MEDS: CLINDAMYCIN HCL 150 MG CAP PO SCH (21:53)
[2018-12-02] MEDS: MEROPENEM 1GM 100 ML IV SCH (21:53)
[2018-12-02 22:00] VITALS: BP 151/67
[2018-12-03] VITALS (8 sets, daily range): BP systolic 119–160; BP diastolic 56–74
--- NOTE | 2018-12-03 00:22 | Consultation ---
DATE OF CONSULTATION: 12/02/2018 CHIEF COMPLAINT: Osteomyelitis of the left foot. HISTORY OF PRESENT ILLNESS: This patient who is a 78-year-old white male with history of diabetes mellitus, history of osteomyelitis before, history of hypertension, atherosclerotic heart disease, and peripheral vascular disease. The patient who is back in the hospital here in June, the patient was discharged home. He was doing well. He has been having problem with left foot ulcer on and off for several months, but getting progressively worse and put some drainage from the left foot ulcer. The patient was admitted, he is getting progressively worse. The patient has no fever, no chills, no . No specific trauma, but he does have an ulcer on his foot which he has been dealing with for a couple months now. PAST MEDICAL HISTORY: Ischemic cardiomyopathy, congestive heart failure, obesity, coronary artery disease, diabetes mellitus, hypertension, peripheral vascular disease, atrial fibrillation, CVA, depression, and anxiety. PAST SURGICAL HISTORY: Appendectomy, carpal tunnel syndrome, cholecystectomy, and AICD placement. SOCIAL HISTORY: There is no smoking, drug abuse, or alcohol abuse. FAMILY HISTORY: Noncontributory. REVIEW OF SYSTEMS: HEENT: Negative. PULMONARY: Negative. CARDIAC: Negative. : Negative. GI: Negative. SKIN: There are no other rashes. MEDICATIONS: He is currently on Ultram, Reglan, Bumex, Prinivil, Lopressor, glucotrol, and amiodarone. LABORATORY DATA: White count 10.57 and hemoglobin 10.6. His sodium 132, potassium 4.1, creatinine 1.19. Liver enzymes within normal limits. PHYSICAL EXAMINATION: GENERAL: He is currently alert and oriented, does not seem to be in acute distress. VITAL SIGNS: Stable, currently afebrile. HEENT: He is not icteric. NECK: Supple. CHEST: Clear. HEART: S1 and S2. No S3, S4, or murmur. ABDOMEN: Soft. Bowel sounds present. No tenderness. EXTREMITIES: No edema. The patient does have an ulcer on his left aspect of his foot. IMPRESSION: 1. Chronic ulcer of the foot, acting as if he has osteomyelitis. We will obtain an MRI. We will obtain a sedimentation rate, C-reactive protein. We will put the patient on vancomycin and cefepime for the time being. Follow vancomycin trough. Podiatry has been consulted. We would need a bone biopsy for culture and sensitivity. 2. Diabetes mellitus. 3. Hypertension. 4. Peripheral vascular disease. He already had workup for before, apparently had the stent placed. We will follow with you. Thank you so much for seeing this patient. Discussed with the patient and discussed with the . MD GEN Johnson/MODMargarita /[id number]
[2018-12-03] MEDS: MEROPENEM 1GM 100 ML IV SCH ×3 (05:00→20:44)
[2018-12-03] MEDS: VANCOMYCIN 1GM/NS 250 ML 250 ML IV SCH ×2 (05:30→18:13)
--- NOTE | 2018-12-03 07:00 | NUR ---
Patient resting comfortably. Walking rounds done. Report given to oncoming nurse.
--- NOTE | 2018-12-03 07:30 | NUR ---
REC'D PATIENT AAOX3, IV 20 GAUGE TO THE HAND DRY AND INTACT. PATIENT ON ROOM AIR. NO S/S OF DISTRESS. BED IN LOWEST POSITION, SIDE RAILS UP X2, AND CALL MATAMOROS WITHIN REACH.
--- NOTE | 2018-12-03 07:30 | NUR ---
Received patient AAOx3, patient on room air, no s/s of distress. IV is clean, intact, and dry to left hand. Bed in lowest position, side rails up x2, and call adkins within reach.
[2018-12-03] MEDS ORDERED: LIDOCAINE 1% 5ML-MPF INJ ONE (07:45)
--- NOTE | 2018-12-03 07:45 | NUR ---
Got consent for patient to have a debridement procedure to the left foot. Debridement performed by Dr. Cervantes. Patient tolerated procedure well. Cultures collected and sent to lab. Bed in lowest position, side rails up x2, and call adkins within reach.
--- NOTE | 2018-12-03 08:04 | Diagnostic Imaging Report ---
CT scan of the LEFT FOOT, WITHOUT injected contrast. TECHNIQUE: Standard departmental protocols were used. Sagittal and coronal reformatted images were obtained. Dose modulation, iterative reconstruction, and/or weight based adjustment of the mA/kV was utilized to reduce the radiation dose to as low as reasonably achievable. DLP = 95.93 mGy-cm HISTORY: infection, rule out osteomyelitis COMPARISON: Chest radiograph August 24, 2018 - pacemaker. Left foot radiographs June 04, 2018. FINDINGS: Bones: Subtle cortical erosion of the plantar aspect of the head of the fifth metatarsal bone, best seen on the sagittal images. Subtle cortical erosions at the lateral and plantar aspect of the dorsal calcaneus, best seen on series 4 image 43. No acute displaced fracture. Joints: Mild hallux valgus deformity. Multifocal degenerative changes, most notably mild of the first metatarsophalangeal joint. Soft tissues: Soft tissue defects, including: lateral and plantar aspect of the forefoot overlying the fifth metatarsal head with regional subcutaneous emphysema and the lateral and plantar aspect of the hindfoot overlying the dorsal calcaneus with regional subcutaneous emphysema. Diffuse scattered atherosclerotic vascular calcifications. Diffuse nonspecific soft tissue edema. IMPRESSION: CT findings compatible with subtle changes of osteomyelitis. If further imaging confirmation is desired, recommend a three-phase nuclear medicine bone scan. Signed by: Dr. Leonardo Segura D.O., M.M.M. on 12/03/2018 8:01 AM
--- NOTE | 2018-12-03 08:48 | Operative Report ---
DATE OF PROCEDURE: 12/03/2018 SURGEON: Isma Cervantes DPM PREOPERATIVE DIAGNOSIS: Left foot multiple ulcerations. POSTOPERATIVE DIAGNOSIS: Left foot multiple ulcerations. PLANNED PROCEDURE: Left foot subcutaneous debridement. ANESTHESIA: Local with 5 mL of 2% lidocaine plain. ESTIMATED BLOOD LOSS: Less than 10 mL. PATHOLOGY: Anaerobic and aerobic culture sent for gross specimen. PROCEDURE IN DETAIL: The patient was seen at the bedside and the surgical consent was signed. The left foot was scrubbed, prepped, and draped in the usual aseptic fashion with Betadine. Local anesthesia was achieved to the surgical site utilizing 5 mL of 1% lidocaine plain. Utilizing a #15 blade, the necrotic and devitalized tissue that was loose at the distal aspect of the left 5th metatarsal head was debrided of necrotic and devitalized tissue leaving a fibrotic base present. Upon initial incision, there was a mild amount of purulent drainage which was cultured and passed off to the back table. Next, attention was directed to the lateral inferior aspect of the patient's left heel where a dry necrotic ulceration was partially debrided to loose the necrotic tissue where the majority of the dry eschar was left intact. There was fibrotic tissue underneath. A wound culture was taken of the left heel as well. The wound was then copiously irrigated with sterile saline and the wounds were dressed with Adaptic and Betadine, 4 x 4s, Kerlix, and an Danial wrap. The patient tolerated the procedure and anesthesia well. The Podiatry Service will continue to monitor as an inpatient. KEISHA Woodruff/MODL /[id number]
[2018-12-03] MEDS ORDERED: METOCLOPRAMIDE HCL 10 MG TAB PO SCH (09:00)
[2018-12-03] MEDS ORDERED: NON-FORMULARY MEDICATION (Lisinopril 5 MG) PO SCH (09:00)
[2018-12-03] MEDS: GLIPIZIDE 5 MG TAB PO SCH ×2 (09:09→18:00)
--- NOTE | 2018-12-03 09:09 | Consultation ---
DATE OF CONSULTATION: 12/03/2018 CHIEF COMPLAINT: Left foot wound. HISTORY OF PRESENTING ILLNESS: This is a 78-year-old male with past medical history of type 2 diabetes, peripheral neuropathy, hypertension, heart disease, and peripheral vascular disease, who was admitted yesterday with a worsening infection to his left foot. Per the patient, the wound on his left foot has been present for approximately 6 months. He has previously seen a rib cloth knitter as an outpatient and was recommended to see a vascular surgeon. The patient underwent an angioplasty with stenting approximately one month ago. He has not followed up for wound care after that. He has not been doing any local wound care at home. He relates to a history of pain to the left foot, but has resolved since he has been in the hospital. Currently denies nausea, vomiting, fever, chills, chest pain, or shortness of breath. PAST MEDICAL HISTORY: Type 2 diabetes; peripheral neuropathy; hypertension; peripheral vascular disease, status post angioplasty; congestive heart failure; atrial fibrillation; history of stroke; depression; and anxiety. PAST SURGICAL HISTORY: Appendectomy, cholecystectomy, and right hand surgery. SOCIAL HISTORY: The patient denies smoking, drinking, or any illicit drug usage. FAMILY HISTORY: Type 2 diabetes. REVIEW OF SYSTEMS: The patient currently denies nausea, vomiting, fever, chills, chest pain, or shortness of breath. MEDICATIONS: Per the chart. ALLERGIES: NO KNOWN DRUG ALLERGIES. PHYSICAL EXAMINATION: GENERAL: Alert and oriented x3, in no apparent distress. VITAL SIGNS: Today, temperature is 97.3, heart rate 83, respiratory rate 20, blood pressure 130/74, and pulse ox 96% on room air. PROBLEM FOCUSED LOWER EXTREMITY PHYSICAL EXAM: VASCULAR: Dorsalis pedis and posterior tibial pulses are nonpalpable to the left lower extremity. Capillary refill time is delayed to the level of the digits. NEUROLOGICAL: Sensation is diminished to light touch, however, pain on palpation is noted along the left 5th metatarsal head wound. MUSCULOSKELETAL: Pain on palpation on the left 5th metatarsal head. DERMATOLOGICAL: Two large necrotic ulcerations are noted to the patient's left foot, one to the lateral and plantar aspect of the left 5th metatarsal head. It is boggy with drainage. There is a wet eschar that is mobile with malodor. A large necrotic dry ulceration is noted to the medial plantar aspect of the patient's left heel. Both wounds have less than 2 cm of periwound erythema, edema or warmth. LABORATORY DATA: White blood cell count is 10.5, hemoglobin 10.6, hematocrit 35.3, and platelet count is 188. Sodium 132, potassium 4.1, chloride 98, CO2 of 26, BUN 23, creatinine 1.19, and glucose 198. IMAGING: Imaging of the left foot CT scan was obtained. Impression: CT findings compatible with subtle changes of osteomyelitis. If further imaging confirmation is desired, I recommend 3-phase nuclear medicine bone scan. Vascular calcifications have been seen and regional subcutaneous emphysema correlating with both wounds present. ASSESSMENT: 1. Left foot multiple ulcerations with cellulitis. 2. Osteomyelitis of the left 5th metatarsal head. 3. Peripheral vascular disease, one month status post angioplasty. 4. Congestive heart failure. 5. Atrial fibrillation. 6. History of stroke. PLAN: The patient was seen and evaluated, discussed condition and treatment options with the patient in detail. At this time, we wound recommend a debridement of the left 5th metatarsal ulceration as well as the left heel ulceration with wound cultures. The patient agrees. Continue IV antibiotics per Infectious Disease with vancomycin, meropenem, and clindamycin until sensitivities returned. Due to the results of the CT scan with underlying osteomyelitis, I would recommend a PICC line and IV antibiotics with local wound care for 6 to 8 weeks. The Podiatry Service will continue to monitor as an inpatient. KEISHA Woodruff/VICENTE /[id number]
[2018-12-03] MEDS: CLINDAMYCIN HCL 150 MG CAP PO SCH ×2 (09:10→20:44)
[2018-12-03] MEDS: BUMETANIDE 1 MG TAB PO SCH ×2 (09:10→18:00)
[2018-12-03] MEDS: AMIODARONE HCL 200 MG TAB PO SCH (09:10)
[2018-12-03] MEDS: OXYBUTYNIN CHLORIDE 5 MG TAB PO SCH ×2 (09:10→18:01)
[2018-12-03] MEDS: METOPROLOL TARTRATE 25 MG TAB PO SCH (09:11)
[2018-12-03] MEDS: APIXABAN 5 MG TABLET PO SCH ×2 (09:11→18:01)
[2018-12-03] MEDS: CLOPIDOGREL BISULFATE 75 MG TAB PO SCH (09:11)
[2018-12-03] MEDS: DIGOXIN 0.125 MG TAB PO SCH (09:11)
[2018-12-03] MEDS: BUPROPION HCL 150 MG TABCR PO SCH (09:12)
[2018-12-03] MEDS: LISINOPRIL 2.5 MG TAB PO SCH (09:12)
[2018-12-03] MEDS: INSULIN LISPRO 100 UNIT/1 ML 3ML VIAL SQ SCH ×3 (10:25→17:46)
--- NOTE | 2018-12-03 10:30 | NUR ---
PATIENT REFUSED TO TAKE A SHOWER.
--- NOTE | 2018-12-03 10:55 | NUR ---
WOUND CARE CONSULTATION - INITIAL EVALUATION Patient admitted for OM of Left Foot. Dr. Cervantes on case, seen today and had bedside sharps debridement today. Dressing CDI. Will defer assessment of left foot ulcers. Will follow up if needed / called back. Dr. Cervantes managing care. PATIENT VISIT/ PUP SCREEN: 78 y/o make with LOS 1 day. Patient AAOX4. Calm and in good spirits. Verbalizes had debridement of DFU Grade 3 ( With Osteomyelitis per admitting diagnosis) today by Dr. Cervantes of Left Foot ulcers. Dr. Mcfarland on case and managing IV ABX: Merrem and Vancomycin Jordan Score 20 Ambulates self to bathroom. Turns Self without assistance. Visco Mattress in place Conservative PUP Active Voices history of recurrent yeast to scrotal area but no rash at the moment. Denies pain or discomfort. No Pressure Ulcers Identified during visit. Thank you for consulting with Wound Care. Addendum: 12/03/18 at 1104 by Tunde Ferrara RN Amended: Links added.
--- NOTE | 2018-12-03 18:50 | NUR ---
ROUNDED WITH NIGH SHIFT NURSE FOR REPORT. NO S/S OF DISTRESS, BED IN LOWEST POSITION, SIDE RAILS UP X2, AND CALL MATAMOROS WITHIN REACH.
--- NOTE | 2018-12-03 20:00 | NUR ---
PATIENT REFUSED BED ALARM.
[2018-12-03] MEDS: INSULIN GLARGINE 100 UNITS/ML VIAL SQ SCH (20:59)
--- NOTE | 2018-12-03 20:59 | NUR ---
Patient requested to have 22 units of lantus instead of 44 units
--- NOTE | 2018-12-03 22:00 | NUR ---
Patient refused to wear heel protector.
--- NOTE | 2018-12-03 23:22 | History and Physical ---
PRIMARY CARE PHYSICIAN: Dr. Rm Parham. CONSULTANTS: 1. Dr. Isma Cervantes. 2. Dr. Margaret Mcfarland. CHIEF COMPLAINT: Worsening left foot diabetic foot ulcer. HISTORY OF PRESENT ILLNESS: This is a 78-year-old male with left foot chronic diabetic foot ulcer, worsening per patient for the past week with open wound and necrotic tissue. The patient was seen by Dr. Rm Parham, his family physician and subsequently was admitted to the hospital directly for treatment. The patient does have 2 large areas of diabetic foot ulcer. The patient is otherwise stable. He does have peripheral vascular disease, peripheral neuropathy, and also congestive heart failure with multiple other issues as well. The patient is otherwise stable now. Podiatry consultation with Dr. Cervantes is obtained because the patient is refusing to see his previous latin professor. PAST MEDICAL HISTORY: Diabetic foot ulcer on the left, peripheral neuropathy, peripheral vascular disease, coronary artery disease with previous angioplasty, congestive heart failure, atrial fibrillation, history of TIA/CVA, major depression, anxiety disorder, diabetes type 2. PAST SURGICAL HISTORY: Right hand surgery, cholecystectomy, appendectomy, and left foot multiple debridements previously. SOCIAL HISTORY: The patient does not smoke or drink alcohol. No recreational drugs. ALLERGIES: LATEX, HYDROMORPHONE, ADHESIVE TAPE, PENICILLIN. HOME MEDICATIONS: List is reviewed. REVIEW OF SYSTEMS: Left foot diabetic foot ulcer wound, not much pain due to neuropathy. PHYSICAL EXAMINATION: VITAL SIGNS: Temperature is 97, blood pressure 143/65, pulse rate 76, respirations 18. GENERAL: The patient is awake, alert, obese. HEENT: Normocephalic, atraumatic, anicteric. NECK: Supple grossly. PULMONARY: Clear. CARDIOVASCULAR: Atrial fibrillation, rate controlled. ABDOMEN: Soft, obese. EXTREMITIES: Left foot multiple areas on the lateral surface of the foot, diabetic foot ulcer with necrotic tissue, drainage. Please review the Podiatry consultation wound note. NEUROLOGIC: Diabetic neuropathy without any other focal deficit. LABORATORY DATA: Sodium is 132, potassium 4.1, chloride 98, bicarb 26, BUN 23, creatinine 1.1, glucose 198. WBC 10.5, hemoglobin 10.6, hematocrit 35.3, platelets 188. INR is 1.13. AST 12, ALT 19, alkaline phosphate 150, total bilirubin is 0.7. IMPRESSION: 1. Infected diabetic foot ulcer on the left with multiple wounds, open wounds, drainage, infection, necrotic tissue. 2. Multiple chronic baseline problems, diabetic neuropathy, diabetes type 2, on insulin therapy, morbid obesity, multiple cardiac problems. PLAN: Home medications. Rule out for any osteomyelitis of the left foot. Podiatry consultation with Dr. Isma Cervantes and Infectious Disease with Dr. Margaret Mcfarland. Antibiotic per Dr. Mcfarland. DVT prophylactic wound care. We will monitor the patient closely. MD SID Kline/MARYL /[id number]
[2018-12-04] VITALS (7 sets, daily range): BP systolic 123–154; BP diastolic 57–67
[2018-12-04] MEDS: MEROPENEM 1GM 100 ML IV SCH ×3 (05:11→21:00)
--- NOTE | 2018-12-04 05:57 | NUR ---
Dr. alamo paged for high vanco trough result
[2018-12-04] MEDS: VANCOMYCIN 1GM/NS 250 ML 250 ML IV SCH ×2 (06:15→17:41)
--- NOTE | 2018-12-04 06:15 | NUR ---
call back received from dr. Mcfarland. States it is okay to continue giving vancomycin.
--- NOTE | 2018-12-04 07:30 | NUR ---
Patient is in bed laying semi-fowlers, on room air, no s/s of distress, left foot is wrapped up. Patient refused heel protectors. Bed in lowest position, side rails up x2, and call adkins within reach.
--- NOTE | 2018-12-04 08:20 | NUR ---
Patient refused heel protectors. Offered patient a shower and he said maybe later on.
[2018-12-04] MEDS: INSULIN LISPRO 100 UNIT/1 ML 3ML VIAL SQ SCH ×3 (08:30→17:00)
[2018-12-04] MEDS: DIGOXIN 0.125 MG TAB PO SCH (08:38)
[2018-12-04] MEDS: OXYBUTYNIN CHLORIDE 5 MG TAB PO SCH ×2 (08:39→17:41)
[2018-12-04] MEDS: CLINDAMYCIN HCL 150 MG CAP PO SCH ×2 (08:39→21:00)
[2018-12-04] MEDS: BUMETANIDE 1 MG TAB PO SCH ×2 (08:39→17:41)
[2018-12-04] MEDS: AMIODARONE HCL 200 MG TAB PO SCH (08:39)
[2018-12-04] MEDS: TRAMADOL HCL 50 MG TAB PO PRN ×2 (08:50→18:02)
[2018-12-04] MEDS: APIXABAN 5 MG TABLET PO SCH ×2 (09:00→17:41)
[2018-12-04] MEDS: BUPROPION HCL 150 MG TABCR PO SCH (09:22)
[2018-12-04] MEDS: GLIPIZIDE 5 MG TAB PO SCH ×2 (09:22→17:41)
[2018-12-04] MEDS: CLOPIDOGREL BISULFATE 75 MG TAB PO SCH (09:22)
[2018-12-04] MEDS: METOPROLOL TARTRATE 25 MG TAB PO SCH (09:35)
[2018-12-04] MEDS: LISINOPRIL 2.5 MG TAB PO SCH (09:35)
--- NOTE | 2018-12-04 12:05 | Progress Note ---
DATE: 12/04/2018 SUBJECTIVE: This is a 78-year-old male with past medical history of type 2 diabetes, peripheral neuropathy, peripheral vascular disease, and multiple ulcerations of the left lower extremity. The patient relates to improvement in pain to his left foot with less tenderness. No new pedal complaints. The patient currently denies nausea, vomiting, fever, chills, chest pain, or shortness of breath. PHYSICAL EXAMINATION: GENERAL: Alert and oriented x3, in no apparent distress. VITAL SIGNS: Today, temperature 96.6, heart rate 70, respiratory rate 19, blood pressure 137/62, and pulse ox 95% on room air. PROBLEM FOCUSED LOWER EXTREMITY PHYSICAL EXAM: VASCULAR: Dorsalis pedis and posterior tibial pulses are nonpalpable to the left lower extremity. Capillary refill time is delayed to the level of digits. NEUROLOGICAL: Sensation is diminished to light touch. However, mild pain on palpation is noted along the wound to the left 5th metatarsal head. MUSCULOSKELETAL: Pain on palpation to the left 5th metatarsal head wound as well as a left heel ulceration. DERMATOLOGICAL: Two large necrotic ulcerations are noted to the patient's left foot, status post debridement yesterday. The wounds appear to be improving with fibrotic tissue with minimal amount of necrotic tissue. There is less erythema edema and warmth since the previous visit. Malodor appears to be resolved. Nails are thickened, discolored, yellow with subungual debris. LABORATORY DATA: No new CBC this morning. ASSESSMENT: 1. Left foot multiple ulcerations with improving cellulitis. 2. Osteomyelitis of the left 5th metatarsal head. 3. Peripheral vascular disease, one month status post angioplasty. 4. Congestive heart failure. 5. Atrial fibrillation. 6. History of stroke. 7. Type 2 diabetes. 8. Peripheral neuropathy. 9. Onychomycosis. PLAN: The patient was seen and evaluated, discussed condition and treatment options with the patient in detail. Dressing change was performed this morning with Xeroform, 4x4s, Kerlix, and an Danial wrap to the left foot. Wound cultures are currently growing moderate gram-positive cocci in pairs, gram-negative bacilli, identification and sensitivities are pending. We will continue IV antibiotics with vancomycin, meropenem, and clindamycin per Infectious Disease until sensitivities returned. In light of the CT scan results, we will recommend 6 to 8 weeks of IV antibiotics with local wound care. The patient is stable to be discharged from the podiatry standpoint once this has been set up. We will bring nail nippers tomorrow for nail debridement as well. The Podiatry Service will continue to monitor as an inpatient. KEISHA Woodruff/VICENTE /[id number]
--- NOTE | 2018-12-04 18:30 | NUR ---
PATIENT SITTING ON THE SIDE OF THE BED. FAMILY AT THE BEDSIDE. NO S/S OF DISTRESS. CALL MATAMOROS WITHIN REACH, BED IN LOWEST POSITION, AND SIDE RAILS UPX2.
--- NOTE | 2018-12-04 20:00 | NUR ---
Received change of shift report from AM nurse. Walking rounds completed.
[2018-12-04] MEDS: INSULIN GLARGINE 100 UNITS/ML VIAL SQ SCH (21:00)
[2018-12-05] VITALS (8 sets, daily range): BP systolic 123–138; BP diastolic 59–65
--- NOTE | 2018-12-05 | NUR ---
Dressing loose to foot. Rewrapped and reinforced dressing. Patient tolerated well.
[2018-12-05] MEDS: MEROPENEM 1GM 100 ML IV SCH ×3 (04:14→21:55)
[2018-12-05] MEDS: VANCOMYCIN 1GM/NS 250 ML 250 ML IV SCH ×2 (05:12→17:05)
--- NOTE | 2018-12-05 06:37 | NUR ---
Patient resting quitly at this time.
--- NOTE | 2018-12-05 07:00 | NUR ---
BEDSIDE SHIFT REPORT RECEIVED FROM NIGHT RN. PT DENIES NEEDS AT THIS TIME.
[2018-12-05] MEDS: GLIPIZIDE 5 MG TAB PO SCH ×2 (09:14→17:05)
[2018-12-05] MEDS: OXYBUTYNIN CHLORIDE 5 MG TAB PO SCH ×2 (09:14→17:05)
[2018-12-05] MEDS: AMIODARONE HCL 200 MG TAB PO SCH (09:14)
[2018-12-05] MEDS: BUMETANIDE 1 MG TAB PO SCH ×2 (09:14→11:39)
[2018-12-05] MEDS: CLINDAMYCIN HCL 150 MG CAP PO SCH ×2 (09:14→21:55)
[2018-12-05] MEDS: APIXABAN 5 MG TABLET PO SCH ×2 (09:15→17:05)
[2018-12-05] MEDS: BUPROPION HCL 150 MG TABCR PO SCH (09:15)
[2018-12-05] MEDS: CLOPIDOGREL BISULFATE 75 MG TAB PO SCH (09:15)
[2018-12-05] MEDS: LISINOPRIL 2.5 MG TAB PO SCH (09:15)
[2018-12-05] MEDS: METOPROLOL TARTRATE 25 MG TAB PO SCH (09:15)
[2018-12-05] MEDS: DIGOXIN 0.125 MG TAB PO SCH (09:15)
[2018-12-05] MEDS: INSULIN LISPRO 100 UNIT/1 ML 3ML VIAL SQ SCH ×3 (09:18→16:43)
--- NOTE | 2018-12-05 12:17 | Progress Note ---
DATE: 12/05/2018 SUBJECTIVE: This 78-year-old male with past medical history of type 2 diabetes, peripheral neuropathy, peripheral vascular disease, and multiple ulcerations to the left lower extremity. The patient continues to relate his improvement to his left foot. No new pedal complaints. The patient currently denies nausea, vomiting, fever, chills, chest pain, or shortness of breath. PHYSICAL EXAMINATION: GENERAL: Alert and oriented x3, in no apparent distress. VITAL SIGNS: Today, temperature is 96.4, heart rate 70, respiratory rate 19, blood pressure 132/68, and pulse ox is 100% on room air. PROBLEM FOCUSED LOWER EXTREMITY PHYSICAL EXAM: VASCULAR: Dorsalis pedis and posterior tibial pulses are nonpalpable to the left lower extremity. Capillary refill time is delayed to all digits. Improvement in erythema and edema to the left foot ulcerations. NEUROLOGIC: Sensation is diminished to light touch. Paresthesias are noted. Pain on palpation is improving to the left fifth metatarsal head. MUSCULOSKELETAL: Improved pain on palpation to the left foot ulcerations. DERMATOLOGIC: Two large necrotic ulcerations are noted to the patient's left foot, status post debridement 2 days ago. The wounds appeared to be improving with fibrotic tissue. Mild amount of granulation tissue and minimal amount of necrotic tissue. There is improvement in erythema, edema, and warmth since his previous visit. Nails are thickened, dystrophic, and yellow with subungual debris. ASSESSMENT: 1. Left foot multiple ulcerations with improving cellulitis. 2. Osteomyelitis of the left fifth metatarsal head. 3. Peripheral vascular disease one month status post angioplasty. 4. Congestive heart failure. 5. Atrial fibrillation. 6. History of stroke. 7. Type 2 diabetes with peripheral neuropathy. 8. Onychomycosis. PLAN: The patient was seen and evaluated. Discussed condition and treatment options with the patient in detail. Dressing change was performed again this morning with Xeroform, 4x4's, Kerlix, and an Danial wrap to the left foot. Wound cultures are enterococcus species and gram-negative giselle since identification and sensitivities are still pending. Continue IV antibiotics, vancomycin, Merrem and clindamycin per Infectious Disease until sensitivities are returned. CT scan confirms osteomyelitis of the left fifth metatarsal head. We will recommend 6-8 weeks of IV antibiotics with local wound care. The patient's nails to bilateral left lower extremity were trimmed and debrided 1 through 5 without incident. They were then cleansed with soap and sterile saline and then dried prior to the bandage being put on. The patient is stable to be discharged from the podiatry standpoint once IV antibiotics and local wound care has been set up whether at home or a senior care facility. The Podiatry Service will continue to monitor as an inpatient. KEISHA Woodruff/VICENTE /[id number]
[2018-12-05] MEDS: TRAMADOL HCL 50 MG TAB PO PRN (19:57)
[2018-12-05] MEDS: INSULIN GLARGINE 100 UNITS/ML VIAL SQ SCH (21:55)
[2018-12-06] VITALS (7 sets, daily range): BP systolic 114–185; BP diastolic 55–74
[2018-12-06] MEDS: MEROPENEM 1GM 100 ML IV SCH ×3 (04:45→22:05)
[2018-12-06] MEDS: VANCOMYCIN 1GM/NS 250 ML 250 ML IV SCH (05:15)
--- NOTE | 2018-12-06 05:23 | NUR ---
Left message with Dr Mcfarland answering service regarding vant level ( with Geraldine) awaiting call back
[2018-12-06] MEDS: DIGOXIN 0.125 MG TAB PO SCH (10:51)
[2018-12-06] MEDS: ERGOCALCIFEROL 50,000 UNIT CAP PO SCH (10:51)
[2018-12-06] MEDS: AMIODARONE HCL 200 MG TAB PO SCH (10:51)
[2018-12-06] MEDS: CLINDAMYCIN HCL 150 MG CAP PO SCH ×2 (10:51→22:05)
[2018-12-06] MEDS: APIXABAN 5 MG TABLET PO SCH ×2 (10:51→17:00)
[2018-12-06] MEDS: OXYBUTYNIN CHLORIDE 5 MG TAB PO SCH ×2 (10:51→17:00)
[2018-12-06] MEDS: BUPROPION HCL 150 MG TABCR PO SCH (10:52)
[2018-12-06] MEDS: INSULIN LISPRO 100 UNIT/1 ML 3ML VIAL SQ SCH ×3 (10:52→17:00)
[2018-12-06] MEDS: METOPROLOL TARTRATE 25 MG TAB PO SCH (10:52)
[2018-12-06] MEDS: BUMETANIDE 1 MG TAB PO SCH ×2 (10:52→13:05)
[2018-12-06] MEDS: CLOPIDOGREL BISULFATE 75 MG TAB PO SCH (10:52)
[2018-12-06] MEDS: GLIPIZIDE 5 MG TAB PO SCH ×2 (10:52→16:30)
[2018-12-06] MEDS: LISINOPRIL 2.5 MG TAB PO SCH (10:52)
--- NOTE | 2018-12-06 11:11 | Progress Note ---
DATE: 12/06/2018 PROGRESS NOTE SUBJECTIVE: This is a 78-year-old male with past medical history of type 2 diabetes, peripheral neuropathy, peripheral vascular disease, and multiple ulcerations to the left lower extremity. The patient relates no pain to his left foot at this time. No new pedal complaints. Denies nausea, vomiting, fever, chills, chest pain, or shortness of breath. OBJECTIVE: GENERAL: Alert and oriented x3 in no apparent distress. VITAL SIGNS: Today, temperature 96.9, heart rate 70, respiratory rate 17, blood pressure 114/55, and pulse ox improved 94% on room air. PROBLEM FOCUSED LOWER EXTREMITY PHYSICAL EXAM: VASCULAR: Dorsalis pedis and posterior tibial pulses are nonpalpable to the left lower extremity. Capillary refill time is delayed to all digits. There continues to be improvement in erythema, edema, and warmth to the left foot ulcerations. NEUROLOGICAL: Sensation is diminished to light touch. Paresthesias are present to the left foot. Pain on palpation is improving. MUSCULOSKELETAL: Deferred. DERMATOLOGICAL: Two large open ulcerations are noted to the patient's left foot, one at the fifth metatarsal head. It is approximately 60% fibrotic, 20% granular, and 10% necrotic. The left heel ulcer is approximately 90% fibrotic, 10% granular. Minimal necrotic tissues are noted. Negative erythema, edema, and warmth. Nails are improved since debridement. LABORATORY DATA: Vanc trough is 27.4. Microbiology, wound culture, Enterococcus faecalis and Enterobacter cloaca. ASSESSMENT: 1. Left foot multiple ulcerations with improving cellulitis. 2. Osteomyelitis of the left fifth metatarsal head. 3. Peripheral vascular disease one month status post angioplasty. 4. Congestive heart failure. 5. Atrial fibrillation. 6. History of stroke. 7. Type 2 diabetes, peripheral neuropathy. 8. Onychomycosis. PLAN: The patient was seen and evaluated, discussed condition and treatment options with the patient in detail. Dressing change was performed again this morning with Xeroform, 4x4s, Kerlix, and an Danial wrap. Continue antibiotics per Infectious Disease. CT scan confirms osteomyelitis left fifth metatarsal head. Continue to recommend 6-8 weeks of IV antibiotics and local wound care. The patient is going to have his PICC line placed today. The patient is stable to be discharged from Podiatry standpoint once IV antibiotics and local wound care have been set up at a half-way facility. [facility] will continue to monitor as inpatient. KEISHA Woodruff/VICENTE /[id number]
[2018-12-06] MEDS: TRAMADOL HCL 50 MG TAB PO PRN ×3 (12:35→22:51)
--- NOTE | 2018-12-06 15:55 | NUR ---
Paged Dr. Mcfarland regarding elevated Vancomycin level 27.4. Awaiting call back
--- NOTE | 2018-12-06 20:54 | Diagnostic Imaging Report ---
EXAMINATION: CHEST XRAY LINE PLACEMENT INDICATION: ^picc line placement right upper arm COMPARISON: Chest radiograph dated 08/24/2018 FINDINGS: AP view TUBES and LINES: Interval placement of right-sided PICC with tip in the mid to high SVC. LUNGS/PLEURA: The lungs are clear. No pleural effusion or pneumothorax. Elevated right hemidiaphragm. HEART AND MEDIASTINUM: The cardiomediastinal silhouette is unremarkable. Left-sided pacer/AICD. Calcific aortic arch. BONES AND SOFT TISSUES: No acute osseous lesion. Soft tissues are unremarkable. UPPER ABDOMEN: No free air under the diaphragm. IMPRESSION: Interval placement of right-sided PICC with tip in the mid to high SVC. No acute intrathoracic abnormality. Signed by: Ethan Santoyo MD on 12/06/2018 8:51 PM
[2018-12-06] MEDS: INSULIN GLARGINE 100 UNITS/ML VIAL SQ SCH (21:00)
--- NOTE | 2018-12-06 23:00 | NUR ---
PATIENT COMPLAINED OF CHEST PAIN 8/ AFTER ANTIBIOTIC WAS FINISHED. PATIENT STATED HE STARTED TO HAVE CHEST PAIN A LITTLE WHILE AFTER THE ANTIBIOTIC WAS STARTED. PATIENT HAS HISTORY OF PACEMAKER. I SPOKE TO THE ATTENDING DR. BLISS INFORMED HIM OF THE PATIENTS COMPLAINT OF CHEST PAIN 02/12. DR. BLISS ORDERED TELEMETRY, CARDIAC ENZYMES X3 AND EKG FOR THE PATIENT.
[2018-12-06] MEDS ORDERED: ASPIRIN 81 MG CHEW TAB PO ONE (23:15)
[2018-12-07] VITALS (7 sets, daily range): BP systolic 138–168; BP diastolic 60–70
[2018-12-07 00:14] LABS: CREATINE KINASE MB 0.9 ng/mL (0-5.0)
[2018-12-07] MEDS: MEROPENEM 1GM 100 ML IV SCH (05:00)
[2018-12-07 06:11] LABS: BASOPHILS # (AUTO) 0.1 (0.0-0.1); BASOPHILS % 0.4 % (0.0-1.0); EOSINOPHILS # (AUTO) 0.4 (0.0-0.4); EOSINOPHILS % 2.5 % (0.0-6.0); HEMATOCRIT 33.9 % (38.2-49.6); HEMOGLOBIN 10.9 g/dL (14.0-18.0); LYMPHOCYTES # (AUTO) 0.9 (1.0-3.2); LYMPHOCYTES % 5.9 % (18.0-39.1); MEAN CORPUSCULAR HEMOGLOBIN 28.3 pg (28-32); MEAN CORPUSCULAR HGB CONC 32.2 g/dL (31-35); MEAN CORPUSCULAR VOLUME 88.1 fL (81-99); MONOCYTES # (AUTO) 1.6 (0.2-0.8); MONOCYTES % 10.9 % (4.4-11.3); NEUTROPHILS # (AUTO) 11.5 (2.1-6.9); NEUTROPHILS % 79.9 % (38.7-80.0); PLATELET COUNT 210 x10e3/uL (140-360); RED BLOOD COUNT 3.85 x10e6/uL (4.3-5.7); RED CELL DISTRIBUTION WIDTH 15.8 % (11.7-14.4)
[2018-12-07 06:23] LABS: ANION GAP 8.9 mmol/L (8-16); CALCIUM 8.8 mg/dL (8.4-10.2); CREATININE, SERUM 1.24 mg/dL (0.72-1.25); POTASSIUM 3.9 mmol/L (3.5-5.1)
--- NOTE | 2018-12-07 07:24 | NUR ---
left AC removed tip intact
[2018-12-07 07:55] LABS: CREATINE KINASE MB 0.9 ng/mL (0-5.0)
--- NOTE | 2018-12-07 08:30 | NUR ---
Spoke with Dr. Corbett regarding DC plan. Pt's family wants him to go to inpatient rehab or LTAC. Informed him that currently pt does not have criteria for LTAC. Dr. Corbett agrees. He ordered PT to [facility] to see if pt will meet criteria for inpatient rehab. CM called PT and asked them to try to make pt a priority to be seen this morning so referral can be sent.
[2018-12-07] MEDS: BUPROPION HCL 150 MG TABCR PO SCH (09:15)
[2018-12-07] MEDS: METOPROLOL TARTRATE 25 MG TAB PO SCH (09:15)
[2018-12-07] MEDS: CLINDAMYCIN HCL 150 MG CAP PO SCH ×2 (09:15→21:00)
[2018-12-07] MEDS: BUMETANIDE 1 MG TAB PO SCH ×2 (09:15→12:00)
[2018-12-07] MEDS: CEFEPIME 1GM/NS 0.9% 50 ML 50 ML IV SCH ×2 (09:15→20:01)
[2018-12-07] MEDS: CLOPIDOGREL BISULFATE 75 MG TAB PO SCH (09:15)
[2018-12-07] MEDS: DIGOXIN 0.125 MG TAB PO SCH (09:15)
[2018-12-07] MEDS: GLIPIZIDE 5 MG TAB PO SCH ×2 (09:15→16:30)
[2018-12-07] MEDS: INSULIN LISPRO 100 UNIT/1 ML 3ML VIAL SQ SCH ×3 (09:15→17:00)
[2018-12-07] MEDS: APIXABAN 5 MG TABLET PO SCH ×2 (09:15→17:31)
[2018-12-07] MEDS: AMIODARONE HCL 200 MG TAB PO SCH (09:15)
[2018-12-07] MEDS: LISINOPRIL 2.5 MG TAB PO SCH (09:15)
[2018-12-07] MEDS: OXYBUTYNIN CHLORIDE 5 MG TAB PO SCH ×2 (09:15→17:31)
[2018-12-07] MEDS: VANCOMYCIN 1GM/NS 250 ML 250 ML IV SCH (12:00)
--- NOTE | 2018-12-07 12:00 | NUR ---
wound care done by
--- NOTE | 2018-12-07 12:19 | NUR ---
DAUGHTER CLINT EISENBERG [phone] CALLED AND STATES THEY REALLY WANT PT TO GO TO [facility], LET KNOW THAT ONCE GET CRITERIA AND PT NOTES WE WILL SUBMIT AND LET FAMILY KNOW THE PROGRESS OF REFERRAL.
--- NOTE | 2018-12-07 14:13 | Progress Note ---
DATE: 12/07/2018 SUBJECTIVE: This is a 78-year-old male with past medical history of type 2 diabetes, peripheral neuropathy, peripheral vascular disease with multiple ulcerations to the left foot. The patient relates to no pain to his left foot at this time, no new pedal complaints. He did, however, relate to a bout of chest pain and tightness yesterday evening, which is still somewhat present upon swallowing. He currently denies nausea, vomiting, fever, or chills. OBJECTIVE: GENERAL: Alert and oriented x3, in no apparent distress. VITAL SIGNS: Today, temperature 96.9, heart rate 73, respiratory rate 20, blood pressure 145/63, pulse ox is 93% on room air. PROBLEM FOCUSED LOWER EXTREMITY PHYSICAL EXAM: VASCULAR: Dorsalis pedis and posterior tibial pulses are nonpalpable in left lower extremity. Capillary refill time is delayed to all digits. There has been improvement in erythema, edema, and warmth to the left foot ulcerations. NEUROLOGICAL: Sensation is diminished to light touch bilateral. Paresthesias are present to the left foot. Minimal pain on palpation. MUSCULOSKELETAL: Deferred. DERMATOLOGICAL: Two large open ulcerations are noted to the plantar aspect of the patient's left foot. They are both approximately 80% fibrotic and 20% granular, minimal necrotic tissue is noted. Reduction of erythema, edema, and warmth is noted. LABORATORY DATA: White blood cell count is 14.38, hemoglobin 10.9, hematocrit 33.9, platelet count 210, neutrophil percentage 11.5, lymphocyte count 0.9. Sodium 134, potassium 3.9, chloride 95, CO2 of 34, BUN 27, creatinine 1.24, glucose 199. ASSESSMENT: 1. Left foot multiple ulcerations with cellulitis. 2. Osteomyelitis of left 5th metatarsal head. 3. Peripheral vascular disease status post angioplasty. 4. Congestive heart failure. 5. Atrial fibrillation. 6. History of stroke. 7. Type 2 diabetes, peripheral neuropathy. 8. Onychomycosis. PLAN: The patient was seen and evaluated. Discussed condition and treatment options with the patient in detail. Dressing changes again performed this morning with Xeroform, 4x4s, Kerlix, and an Danial wrap. Continue antibiotics per Infectious Disease. CT scan confirms osteomyelitis of left 5th metatarsal head and we will continue to recommend 6-8 weeks of IV antibiotics and local wound care. The patient had PICC line placed today. Due to recent events including chest pain, tightness, and shortness of breath, cardiac enzymes were ordered per the primary care physician and will likely remain here for monitoring. The patient's daughter had refused SNF placement and would prefer a long-term acute care versus rehab for IV antibiotics and local wound care. The patient is stable to discharge from Podiatry standpoint. Podiatry will continue to monitor as an inpatient. KEISHA Woodruff/VICENTE /[id number]
[2018-12-07 14:14] LABS: CREATINE KINASE MB 0.9 ng/mL (0-5.0)
--- NOTE | 2018-12-07 16:24 | NUR ---
DAUGHTER AMANDA CALLED ME AND WAS VERY UPSET BECAUSE SHE STATES ANOTHER DOCTOR NOT DR BLISS CAME IN TO ROOM AND TOLD PT THAT HE COULD LEAVE AND GO HOME FOR TREATMENT. SHE STATES HOME PT REFUSES TO DO OUTPT THERAPY ON HER DAD DUE TO THE WOUND ON HIS FOOT. CALLED DOCTOR IZAIAH AND ASKED HIM TO PLEASE CALL DAUGHTER. EXPLAINED THAT THERAPY DOES RECOMMEND HOME WITH HOME HEALTH BUT THE PT IS ON 2 IV ANTIBIOTICS SO WILL BE ABLE TO SUBMIT FOR LTAC. HE STATES TO SUBMIT THE REFERRAL AND DO WHAT THE FAMILY WANTS. SHE STATES SHE WILL DISCUSS THE OPTIONS WITH HER FAMILY AND MAKE A DECISION ON WHETHER SHE WANTS THE REFERRAL TO GO TO [facility] OR [facility], SHE STATES SHE WILL HAVE THIS DISCUSSION TONIGHT AND CALL ME FIRST THING IN MORNING WITH CHOICE AND WE CAN PROCEED WITH REFERRAL. SHE GOES ON TO STATES SHE IS NOT TRYING TO BE DIFFICULT SHE JUST FEELS LIKE THERE HAVE BEEN NUMEROUS "DOCTORS" THAT HAVE COME INTO ROOM AND TOLD HER FATHER THAT HE CAN GO HOME AND GET OUTPT TREATMENT AND SHE HAS ALREADY BEEN DENIED THE TREATMENT DUE TO THE WOUNDS. SHE STATES THAT SHE WILL FEEL BETTER SPEAKING WITH THE DOCTOR AND THEN GETTING AN INPATIENT TREATMENT. WILL FOLLOW UP IN MORNING.
--- NOTE | 2018-12-07 16:30 | NUR ---
FSBG 70. AAOX3 to time, person, place. Patient eating chocolate pudding
--- NOTE | 2018-12-07 16:40 | NUR ---
Received phone call from pt's daughter Carine Almeida who gave choice for [facility]. Choice letter placed in chart. Iman with [facility] was notified of referral.
--- NOTE | 2018-12-07 17:00 | NUR ---
FSBG 96. Will continue to monitor.
[2018-12-07] MEDS: TRAMADOL HCL 50 MG TAB PO PRN (17:40)
--- NOTE | 2018-12-07 19:20 | NUR ---
Report given to oncoming nurse of patients status. No s/s of acute distress noted. Left foot dressing clean, dry, and intact. Family at bedside.
--- NOTE | 2018-12-07 20:40 | NUR ---
RECEIVED PT IN BED AOX3 .PT C/O MUSCLE SPASM FAMILY AT THE BEDSIDE .CALL LIGHT WITH IN REACH CONTINUE TO MONITOR
[2018-12-07] MEDS: INSULIN GLARGINE 100 UNITS/ML VIAL SQ SCH (21:00)
[2018-12-08] VITALS (7 sets, daily range): BP systolic 116–144; BP diastolic 54–64
--- NOTE | 2018-12-08 06:40 | NUR ---
PT RESTED DURING THE NIGHT .AND NO ACUTE DISTRESS NOTED .CALL LIGHT WITH IN REACH .CONTINUE TO MONITOR
--- NOTE | 2018-12-08 07:22 | NUR ---
PT RESTING IN BED AA0X3. PT IS ON RA PT IS IN NO S.S OF DISTRESS RIGHT UPPER PICC LINE IS CLEAN AND DRY LEFT FOOT DRESSING IS CLEAN AND DRY WILL CONTINUE TO MONITOR PT CLOSELY SIDE RAILSX2, BED WHEELS LOCKED ,CALL LIGHT IS WITHIN EASY REACH INSTRUCTED TO CALL FOR ASSISTANCE IF NEEDED
[2018-12-08] MEDS: INSULIN LISPRO 100 UNIT/1 ML 3ML VIAL SQ SCH ×3 (08:00→17:00)
[2018-12-08] MEDS: BUMETANIDE 1 MG TAB PO SCH ×2 (08:55→11:44)
[2018-12-08] MEDS: CEFEPIME 1GM/NS 0.9% 50 ML 50 ML IV SCH (08:55)
[2018-12-08] MEDS: GLIPIZIDE 5 MG TAB PO SCH ×2 (08:55→17:12)
[2018-12-08] MEDS: APIXABAN 5 MG TABLET PO SCH ×2 (08:56→17:12)
[2018-12-08] MEDS: CLOPIDOGREL BISULFATE 75 MG TAB PO SCH (08:56)
[2018-12-08] MEDS: METOPROLOL TARTRATE 25 MG TAB PO SCH (08:56)
[2018-12-08] MEDS: OXYBUTYNIN CHLORIDE 5 MG TAB PO SCH ×2 (08:56→17:12)
[2018-12-08] MEDS: AMIODARONE HCL 200 MG TAB PO SCH (08:56)
[2018-12-08] MEDS: LISINOPRIL 2.5 MG TAB PO SCH (08:56)
[2018-12-08] MEDS: CLINDAMYCIN HCL 150 MG CAP PO SCH ×2 (08:56→21:11)
[2018-12-08] MEDS: DIGOXIN 0.125 MG TAB PO SCH (08:56)
[2018-12-08] MEDS: BUPROPION HCL 150 MG TABCR PO SCH (08:56)
[2018-12-08] MEDS: POLYETHYLENE GLYCOL 3350 17 GM PACK PO PRN (08:58)
[2018-12-08] MEDS: TRAMADOL HCL 50 MG TAB PO PRN ×2 (11:00→21:12)
--- NOTE | 2018-12-08 11:31 | NUR ---
SPOKE WITH MANAGER FASHION SHERINE ORDERS TO GIVE VANC. ASKED IF HE WANTED TROUGH NO ORDERS RECEIVED AT THIS TIME
[2018-12-08] MEDS: VANCOMYCIN 1GM/NS 250 ML 250 ML IV SCH (11:44)
--- NOTE | 2018-12-08 18:13 | NUR ---
pt c/o of having bad dreams and jerking legs upon awakening calling it hallucinations instructed pt i would relay message to md ibarra in the morning regarding iv abx for that is the only medication that is new and that pt does not take at home pt verbalized understanding received a call from daughter Melinda relating pt c/o of hallucinations. instructed family member i would talk to md ibarra regarding changing or stopping iv antibiotics. pt family asked to speak to [employer]iner[employer] general supervisor, family spoke with humera mina related message to stacey of pt condition . orders to stop cefepine given. and md will see pt tomorrow humera mina has now spoken to daughter about current orders
--- NOTE | 2018-12-08 18:44 | NUR ---
Nutrition LOS Note RD Recommendation(s) for Physician / Nutrition Prescription: continue with diet as prescribed Plan of Care: Patient has been screened and assessed for nutrition risk. At this time, the patient does not pose any nutrition risk. No further nutrition intervention is warranted at this time. Will re-evaluate if consulted by medical staff. Nutrition reason for involvement: LOS Primary Dx: 1. Left foot multiple ulcerations with cellulitis. 2. Osteomyelitis of left 5th metatarsal head. 3. Peripheral vascular disease status post angioplasty. PMH: Ischemic cardiomyopathy, congestive heart failure, obesity, coronary artery disease, diabetes mellitus, hypertension, peripheral vascular disease, atrial fibrillation, CVA, depression, and anxiety. RD Assessment: (12/08) 78yo M, who was admitted for L foot osteomyelitis. Visited pt in the room. Pt reported fair appetite with 50-75% recorded meal intake. No complains of nausea or vomiting. Pt reported of constipation x 5 days and Miralax was given. Pt denied any chewing or swallowing difficulty. Stable weight. Will continue to monitor and follow. Malnutrition Evaluation (12/08/2018) The patient does not meet criteria for a specified degree of malnutrition at this time. Will re-evaluate at follow-up as appropriate. Nutrition Care Level: Low Signed by Marion Jones, MS, RD, LD
[2018-12-08] MEDS: INSULIN GLARGINE 100 UNITS/ML VIAL SQ SCH (21:00)
[2018-12-09] VITALS (7 sets, daily range): BP systolic 113–139; BP diastolic 56–68
[2018-12-09] MEDS: GLIPIZIDE 5 MG TAB PO SCH ×2 (07:30→16:30)
[2018-12-09] MEDS: INSULIN LISPRO 100 UNIT/1 ML 3ML VIAL SQ SCH ×3 (08:00→17:00)
[2018-12-09] MEDS: BUMETANIDE 1 MG TAB PO SCH ×2 (08:00→12:00)
[2018-12-09] MEDS: POLYETHYLENE GLYCOL 3350 17 GM PACK PO PRN (08:32)
[2018-12-09] MEDS: TRAMADOL HCL 50 MG TAB PO PRN (08:33)
[2018-12-09] MEDS: CLINDAMYCIN HCL 150 MG CAP PO SCH ×2 (08:50→21:18)
[2018-12-09] MEDS: AMIODARONE HCL 200 MG TAB PO SCH (08:50)
[2018-12-09] MEDS: DIGOXIN 0.125 MG TAB PO SCH (08:50)
[2018-12-09] MEDS: OXYBUTYNIN CHLORIDE 5 MG TAB PO SCH ×2 (08:50→17:00)
[2018-12-09] MEDS: APIXABAN 5 MG TABLET PO SCH ×2 (08:50→17:00)
[2018-12-09] MEDS: CLOPIDOGREL BISULFATE 75 MG TAB PO SCH (08:51)
[2018-12-09] MEDS: METOPROLOL TARTRATE 25 MG TAB PO SCH (08:51)
[2018-12-09] MEDS: BUPROPION HCL 150 MG TABCR PO SCH (08:51)
[2018-12-09] MEDS: LISINOPRIL 2.5 MG TAB PO SCH (08:51)
--- NOTE | 2018-12-09 10:44 | NUR ---
Blood drawn from Picc line to VICTORINO for vanco trough
--- NOTE | 2018-12-09 10:49 | Progress Note ---
DATE: 12/09/2018 SUBJECTIVE: This is a 78-year-old male with past medical history of type 2 diabetes, peripheral neuropathy, peripheral vascular disease with ulcerations of the left foot. He was admitted approximately 1 week ago for worsening infection. The patient relates no pain to his foot at this time. The chest pain that he was having 2 days ago has resolved. Currently denies nausea, vomiting, fever, chills, chest pain, or shortness of breath. PHYSICAL EXAMINATION: GENERAL: Alert and oriented x3 in no apparent distress. VITAL SIGNS: Today, temperature 96.5, heart rate 70, respiratory rate 21, blood pressure 139/68, pulse ox is 95% on room air: PROBLEM FOCUSED LOWER EXTREMITY PHYSICAL EXAM: VASCULAR: Dorsalis pedis and posterior tibial pulses are nonpalpable to the left lower extremity. Capillary refill time is delayed to the digits. Negative erythema, edema. Warmth is noted to the periwound. NEUROLOGICAL: Sensation is diminished to light touch bilateral. Paresthesias present to the left foot. MUSCULOSKELETAL: Deferred. DERMATOLOGIC: Two large open ulcerations are noted to the plantar aspect of the patient's left foot. Both are approximately 80% fibrotic, 20% granular with minimal necrotic tissue noted. Significant reduction in erythema, edema, and warmth. The wound do need to be debrided. ASSESSMENT: 1. Left foot multiple ulcerations with cellulitis. 2. Osteomyelitis, left 5th metatarsal head. 3. Peripheral vascular disease, status post angioplasty. 4. Congestive heart failure. 5. Atrial fibrillation. 6. History of stroke. 7. Type 2 diabetes, peripheral neuropathy. 8. Onychomycosis. PLAN: The patient was seen and evaluated. Discussed condition and treatment options with the patient in detail. Dressing change was performed with Xeroform, 4x4s, Kerlix, and Danial wrap. We will continue antibiotics per Infectious Disease. The patient has PICC line placed and will need 6-8 weeks of IV antibiotics with local wound care. LTAC approval for [facility] is pending. We will plan to do repeat debridement while patient is still here. The patient is stable to be discharged from Podiatry standpoint. The Podiatry will continue to monitor as an inpatient. KEISHA Woodruff/MARYL /[id number]
--- NOTE | 2018-12-09 11:27 | NUR ---
Spoke with Iman botello [place] for an update on referral, still pending authorization from insurance.
--- NOTE | 2018-12-09 11:43 | NUR ---
Reported Vanco trough level to JENNIFER Mckenna for ID and states to continue vancomycin
[2018-12-09] MEDS: VANCOMYCIN 1GM/NS 250 ML 250 ML IV SCH (11:44)
[2018-12-09] MEDS: CEFTRIAXONE SOD 1 GM/NS 50 ML 50 ML IV SCH (12:00)
[2018-12-09] MEDS ORDERED: SODIUM CHLORIDE 0.9% 250ML 250 ML ONE (12:15)
--- NOTE | 2018-12-09 16:11 | NUR ---
Patient OOB and ambulated with PT, no distress, pains well managed, will monitor.
--- NOTE | 2018-12-09 18:30 | NUR ---
Dressing change completed to VICTORINO Picc line and tolerate well. Picc line in place.
--- NOTE | 2018-12-09 19:20 | NUR ---
blood glucose 59, patient alert, drank 4 oz orange juice, 2 small pieces of candy.
--- NOTE | 2018-12-09 20:11 | NUR ---
blood glucose 71, patient alert. Call placed to dr. kee for possible insulin adjustment.
--- NOTE | 2018-12-09 20:35 | NUR ---
Spoke to dr kee insulin adjusted.
[2018-12-09] MEDS: INSULIN GLARGINE 100 UNITS/ML VIAL SQ SCH (21:00)
--- NOTE | 2018-12-09 22:00 | NUR ---
blood glucose 96, no HS lantus given to patient.
[2018-12-10] VITALS (8 sets, daily range): BP systolic 120–144; BP diastolic 59–65
[2018-12-10] MEDS: GLIPIZIDE 5 MG TAB PO SCH ×2 (07:30→16:04)
[2018-12-10] MEDS: INSULIN LISPRO 100 UNIT/1 ML 3ML VIAL SQ SCH ×3 (08:00→16:04)
[2018-12-10] MEDS: BUMETANIDE 1 MG TAB PO SCH ×2 (08:00→12:26)
[2018-12-10] MEDS: APIXABAN 5 MG TABLET PO SCH ×2 (09:00→16:04)
[2018-12-10] MEDS: AMIODARONE HCL 200 MG TAB PO SCH (09:00)
[2018-12-10] MEDS: BUPROPION HCL 150 MG TABCR PO SCH (09:00)
[2018-12-10] MEDS: OXYBUTYNIN CHLORIDE 5 MG TAB PO SCH ×2 (09:00→16:04)
[2018-12-10] MEDS: CLOPIDOGREL BISULFATE 75 MG TAB PO SCH (09:00)
[2018-12-10] MEDS: LISINOPRIL 2.5 MG TAB PO SCH (09:00)
[2018-12-10] MEDS: DIGOXIN 0.125 MG TAB PO SCH (09:00)
[2018-12-10] MEDS: CLINDAMYCIN HCL 150 MG CAP PO SCH ×2 (09:00→21:31)
[2018-12-10] MEDS: METOPROLOL TARTRATE 25 MG TAB PO SCH (09:00)
[2018-12-10] MEDS: VANCOMYCIN 1GM/NS 250 ML 250 ML IV SCH (11:00)
--- NOTE | 2018-12-10 11:43 | NUR ---
Patient alert and responsive, blood sugars stable, VSS, denies any pains, no resp distress, tolerating abx at this time, will monitor.
[2018-12-10] MEDS: CEFTRIAXONE SOD 1 GM/NS 50 ML 50 ML IV SCH (12:00)
[2018-12-10] MEDS: TRAMADOL HCL 50 MG TAB PO PRN (15:20)
--- NOTE | 2018-12-10 15:32 | NUR ---
Per Iman with [facility], still pending auth. MOT initiated and placed with pt's packet at nurse's station. [facility] [address] [place], [place] [id number]
--- NOTE | 2018-12-10 16:17 | NUR ---
Blood sugar at 83, patient refused dinner time insulin.
[2018-12-10] MEDS: POLYETHYLENE GLYCOL 3350 17 GM PACK PO PRN (21:31)
[2018-12-10] MEDS: INSULIN GLARGINE 100 UNITS/ML VIAL SQ SCH (21:32)
[2018-12-11] MEDS: TRAMADOL HCL 50 MG TAB PO PRN (00:10)
[2018-12-11 00:22] VITALS: BP 128/59
[2018-12-11 04:00] VITALS: BP 148/67
--- NOTE | 2018-12-11 07:09 | NUR ---
Report given to oncoming nurse,walking round done.
[2018-12-11] MEDS: INSULIN LISPRO 100 UNIT/1 ML 3ML VIAL SQ SCH ×2 (08:00→17:00)
[2018-12-11 08:13] VITALS: BP 139/64
[2018-12-11] MEDS: CLOPIDOGREL BISULFATE 75 MG TAB PO SCH (08:30)
[2018-12-11] MEDS: METOPROLOL TARTRATE 25 MG TAB PO SCH (08:30)
[2018-12-11] MEDS: BUPROPION HCL 150 MG TABCR PO SCH (08:30)
[2018-12-11] MEDS: OXYBUTYNIN CHLORIDE 5 MG TAB PO SCH ×2 (08:30→17:34)
[2018-12-11] MEDS: AMIODARONE HCL 200 MG TAB PO SCH (08:30)
[2018-12-11] MEDS: BUMETANIDE 1 MG TAB PO SCH ×2 (08:30→13:30)
[2018-12-11] MEDS: CLINDAMYCIN HCL 150 MG CAP PO SCH ×2 (08:30→21:16)
[2018-12-11] MEDS: DIGOXIN 0.125 MG TAB PO SCH (08:30)
[2018-12-11] MEDS: GLIPIZIDE 5 MG TAB PO SCH ×2 (08:30→17:34)
[2018-12-11] MEDS: LISINOPRIL 2.5 MG TAB PO SCH (08:30)
[2018-12-11] MEDS: APIXABAN 5 MG TABLET PO SCH ×2 (08:30→17:34)
[2018-12-11] MEDS ORDERED: BISACODYL 10 MG SUPP PR PRN (11:45)
[2018-12-11] MEDS ORDERED: MAGNESIUM HYDROXIDE 30 ML UDC PO PRN (11:45)
[2018-12-11] MEDS ORDERED: BISACODYL 10 MG SUPP PR NR (11:45)
[2018-12-11] MEDS: CEFTRIAXONE SOD 1 GM/NS 50 ML 50 ML IV SCH (11:55)
[2018-12-11] MEDS ORDERED: MAGNESIUM HYDROXIDE 30 ML UDC PO NR (12:00)
[2018-12-11] MEDS: VANCOMYCIN 1GM/NS 250 ML 250 ML IV SCH (12:27)
--- NOTE | 2018-12-11 12:28 | NUR ---
Patient would like to finish antibiotics before taking anything for constipation. He wants to start with Senna-Lax first and see if it works before taking Milk of Mag or Dulcolax suppository
[2018-12-11 12:48] VITALS: BP 159/68
[2018-12-11] MEDS: SENNOSIDES 8.6 MG TAB PO SCH ×2 (14:40→17:00)
[2018-12-11 16:54] VITALS: BP 140/66
[2018-12-11 20:00] VITALS: BP 144/63
[2018-12-11] MEDS: INSULIN GLARGINE 100 UNITS/ML VIAL SQ SCH (21:21)
[2018-12-12] VITALS (9 sets, daily range): BP systolic 106–153; BP diastolic 57–76
[2018-12-12] MEDS: TRAMADOL HCL 50 MG TAB PO PRN (00:19)
--- NOTE | 2018-12-12 06:10 | Progress Note ---
DATE: 12/10/2018 Mr. Almeida told me he has some tremor with antibiotic , he is doing better now. PHYSICAL EXAMINATION: GENERAL: He is currently alert, oriented, does not seem to be in acute distress. VITAL SIGNS: Stable, currently afebrile. HEENT: Not icteric. NECK: Supple. CHEST: Clear. HEART: S1, S2. No S3, S4, or murmur. ABDOMEN: Soft. Bowel sounds present. No tenderness. EXTREMITIES: No edema. IMPRESSION: 1. Right foot osteomyelitis, status post I and D, currently on Rocephin and vancomycin. 2. Chronic kidney disease. 3. Diabetes. 4. Neuropathy. 5. Obesity. 6. Continue on IV antibiotic for 8 weeks weekly CBC,weekly Chem panel. We will follow. MD GEN Johnson/VICENTE /[id number]
[2018-12-12 06:17] LABS: BASOPHILS # (AUTO) 0.1 (0.0-0.1); BASOPHILS % 0.5 % (0.0-1.0); EOSINOPHILS # (AUTO) 0.5 (0.0-0.4); EOSINOPHILS % 4.5 % (0.0-6.0); HEMATOCRIT 35.1 % (38.2-49.6); HEMOGLOBIN 10.7 g/dL (14.0-18.0); LYMPHOCYTES # (AUTO) 1.1 (1.0-3.2); LYMPHOCYTES % 10.5 % (18.0-39.1); MEAN CORPUSCULAR HEMOGLOBIN 27.5 pg (28-32); MEAN CORPUSCULAR HGB CONC 30.5 g/dL (31-35); MEAN CORPUSCULAR VOLUME 90.2 fL (81-99); MONOCYTES # (AUTO) 1.2 (0.2-0.8); MONOCYTES % 11.1 % (4.4-11.3); NEUTROPHILS # (AUTO) 7.8 (2.1-6.9); PLATELET COUNT 207 x10e3/uL (140-360); RED BLOOD COUNT 3.89 x10e6/uL (4.3-5.7); RED CELL DISTRIBUTION WIDTH 15.7 % (11.7-14.4)
[2018-12-12 07:04] LABS: CALCIUM 8.9 mg/dL (8.4-10.2); CREATININE, SERUM 1.18 mg/dL (0.72-1.25)
[2018-12-12] MEDS: INSULIN LISPRO 100 UNIT/1 ML 3ML VIAL SQ SCH ×3 (07:39→16:31)
--- NOTE | 2018-12-12 08:40 | NUR ---
Called to the room by patient, patient stated he "slipped off the side of the bed trying to sit up and landed on my knee" Patient was found kneeling at the side of the bed, awake alert and oriented x 3, no visible bruising, bleeding, skin breakdown, or abrasions. Patient was assisted to the chair and then back into bed. Re-educated patient on the importance to call for assistance, he verbalized understanding. Patient has no complaints and denies needing anything at this time, call light in reach and bed alarm is on
[2018-12-12] MEDS: DIGOXIN 0.125 MG TAB PO SCH (08:58)
[2018-12-12] MEDS: BUPROPION HCL 150 MG TABCR PO SCH (08:58)
[2018-12-12] MEDS: BUMETANIDE 1 MG TAB PO SCH ×2 (08:58→12:40)
[2018-12-12] MEDS: METOPROLOL TARTRATE 25 MG TAB PO SCH (08:58)
[2018-12-12] MEDS: AMIODARONE HCL 200 MG TAB PO SCH (08:58)
[2018-12-12] MEDS: GLIPIZIDE 5 MG TAB PO SCH ×2 (08:58→16:30)
[2018-12-12] MEDS: APIXABAN 5 MG TABLET PO SCH ×2 (08:58→16:30)
[2018-12-12] MEDS: LISINOPRIL 2.5 MG TAB PO SCH (08:58)
[2018-12-12] MEDS: CLINDAMYCIN HCL 150 MG CAP PO SCH (08:58)
[2018-12-12] MEDS: OXYBUTYNIN CHLORIDE 5 MG TAB PO SCH ×2 (08:58→16:30)
[2018-12-12] MEDS: POLYETHYLENE GLYCOL 3350 17 GM PACK PO PRN (08:58)
[2018-12-12] MEDS: CLOPIDOGREL BISULFATE 75 MG TAB PO SCH (08:58)
[2018-12-12] MEDS: SENNOSIDES 8.6 MG TAB PO SCH ×2 (09:00→16:30)
[2018-12-12] MEDS: CEFTRIAXONE SOD 1 GM/NS 50 ML 50 ML IV SCH (11:51)
--- NOTE | 2018-12-12 12:26 | Progress Note ---
DATE: 12/12/2018 SUBJECTIVE: A 78-year-old male with past medical history of type 2 diabetes, peripheral neuropathy, peripheral vascular disease with multiple ulcerations of the left foot. He was admitted approximately 10 days ago for worsening infection to his left foot. He underwent a wound debridement with incision and drainage 9 days ago. During his hospital course, he had chest pain and tightness approximately 5 days ago, which has resolved, and then was having tremors and shaking, which has also resolved. The patient currently denies nausea, vomiting, fever, chills, chest pain, or shortness of breath. PHYSICAL EXAMINATION: GENERAL: Alert and oriented x3, in no apparent distress. VITAL SIGNS: Today, temperature 97.2, heart rate 73, respiratory rate 18, blood pressure 140/62, pulse ox is 96% on room air: PROBLEM FOCUSED LOWER EXTREMITY PHYSICAL EXAM: VASCULAR: Dorsalis pedis and posterior tibial pulses are nonpalpable to the left lower extremity. Capillary refill time delayed to the digits. Negative erythema, edema, or warmth is noted to the periwound of both ulcerations. NEUROLOGIC: Sensation is diminished to light touch. Bilateral paresthesias are present to the left foot. MUSCULOSKELETAL: Deferred. DERMATOLOGICAL: Two large open ulcerations are noted to the plantar aspect of the patient's left foot. Both are 80% fibrotic with 20% granulation tissue. No necrotic tissue is noted. The wounds appear to be slightly macerated on this visit. Negative erythema, edema, or warmth to the periwound. LABORATORY DATA: White blood cell count is 10.6, hemoglobin 10.7, hematocrit 35.1, platelet count 207. Sodium 137, potassium 4.0, chloride 97, CO2 is 33, BUN 33, creatinine 1.18, glucose is 77. ASSESSMENT: 1. Left foot multiple ulcerations with improved cellulitis. 2. Osteomyelitis of the left 5th metatarsal head. 3. Peripheral vascular disease, status post angioplasty. 4. Congestive heart failure. 5. Atrial fibrillation. 6. History of stroke. 7. Type 2 diabetes. 8. Peripheral neuropathy. 9. Onychomycosis. PLAN: The patient was seen and evaluated. Discussed condition and treatment options with the patient in detail. Dressing was changed today with a Betadine wet-to-dry fashion as wounds appear to be slightly macerated from previous visit. Antibiotics have been changed to Rocephin and vancomycin. The tremors appear to have been improved. The patient has had a PICC line placed and will require 6-8 weeks of IV antibiotics with local wound care. LTAC approval for [facility] is pending for continued antibiotics, local wound care, and HBO therapy. The patient is stable to be discharged from Podiatry standpoint. The Podiatry Service will continue to monitor as inpatient. KEISHA Woodruff/VICENTE /[id number]
[2018-12-12] MEDS: VANCOMYCIN 1GM/NS 250 ML 250 ML IV SCH (12:40)
--- NOTE | 2018-12-12 19:30 | NUR ---
Bedside rounds completed with morning nurse. Pt alert and orient to name. Sitting in chair at bedside. c/o back pain 12/13. Call adkins within reach. Will continue to monitor.
[2018-12-12] MEDS: INSULIN GLARGINE 100 UNITS/ML VIAL SQ SCH (21:00)
[2018-12-13] VITALS (7 sets, daily range): BP systolic 99–159; BP diastolic 51–67
--- NOTE | 2018-12-13 07:00 | NUR ---
BEDSIDE SHIFT REPORT FROM COST ESTIMATING MANAGER RN. PT DENIES NEEDS AT THIS TIME.
[2018-12-13] MEDS: INSULIN LISPRO 100 UNIT/1 ML 3ML VIAL SQ SCH ×3 (08:00→17:08)
[2018-12-13] MEDS: AMIODARONE HCL 200 MG TAB PO SCH (08:58)
[2018-12-13] MEDS: APIXABAN 5 MG TABLET PO SCH ×2 (08:58→17:03)
[2018-12-13] MEDS: GLIPIZIDE 5 MG TAB PO SCH ×2 (08:58→17:03)
[2018-12-13] MEDS: ERGOCALCIFEROL 50,000 UNIT CAP PO SCH (08:58)
[2018-12-13] MEDS: OXYBUTYNIN CHLORIDE 5 MG TAB PO SCH ×2 (08:58→17:03)
[2018-12-13] MEDS: DIGOXIN 0.125 MG TAB PO SCH (08:58)
[2018-12-13] MEDS: BUMETANIDE 1 MG TAB PO SCH ×2 (08:58→12:55)
[2018-12-13] MEDS: METOPROLOL TARTRATE 25 MG TAB PO SCH (09:00)
[2018-12-13] MEDS: CLOPIDOGREL BISULFATE 75 MG TAB PO SCH (09:00)
[2018-12-13] MEDS: LISINOPRIL 2.5 MG TAB PO SCH (09:00)
[2018-12-13] MEDS: SENNOSIDES 8.6 MG TAB PO SCH ×2 (09:01→17:03)
[2018-12-13] MEDS: BUPROPION HCL 150 MG TABCR PO SCH (09:01)
[2018-12-13] MEDS: VANCOMYCIN 1GM/NS 250 ML 250 ML IV SCH (11:00)
--- NOTE | 2018-12-13 11:07 | NUR ---
CM TO BEDSIDE TO DISCUSS IMM AND MEDICARE RIGHTS - QUESTIONS ANSWERED. PATIENT/FAMILY VERBALIZED UNDERSTANDING. CM OBTAINED SIGNATURE. COPY OF LETTER TO THE CHART AND COPY LEFT AT BEDSIDE.
--- NOTE | 2018-12-13 11:55 | NUR ---
Received denial for LTAC from insurance. Dr. Corbett wrote order for SNF eval. CM spoke to pt at bedside and informed him of denial. Pt stated "I figured that was going to happen." Informed pt of SNF eval order. Pt states to talk to his daughter Carine Almeida [phone]. CM called and spoke to daughter. Daughter is upset, stated her father needs to go to inpatient rehab or to LTAC. Informed her that PT has discontinued services since pt is improving, so he would not qualify for inpatient rehab. Informed her that we are unable to send pt anywhere if the insurance does not approve. She stated that her dad cannot go to a SNF because they would not be able to handle the wound care that he needs. States she was told he needs "hydrogen therapy." Cm read MD's note and it had no mention of hyperbarics. Last MD note states dressing was changed with a Betadine wet-to-dry. CM informed pt's daughter that this wound care can be done at SNF along with pt's IV abx. Gave list of in network facilities. Daughter wants CM to verify wound orders with Dr. Cervantes. CM called Dr. Cervantes and left a message to clarify dc wound care order. Pt's daughter also request that PT re-evaluate pt. Informed Dr. Corbett who gave order for PT to re-eval and work with pt at the hospital. Dr. Corbett states that pt needs to either go home with home health and IV abx or to a SNF. Dr. Corbett states he does not meet criteria for inpatient rehab or LTAC.
--- NOTE | 2018-12-13 12:30 | Progress Note ---
DATE: 12/13/2018 SUBJECTIVE: This is a 78-year-old male with past medical history of type 2 diabetes, peripheral neuropathy, peripheral vascular disease, multiple ulcerations to the left foot. He underwent a wound debridement with incision and drainage 10 days ago and has been undergoing local wound care and IV antibiotics. During his hospital course, he had chest pain, tightness, also tremors, and his antibiotics were adjusted and those have resolved. The patient currently denies nausea, vomiting, fever, chills, chest pain, or shortness of breath. PHYSICAL EXAMINATION: GENERAL: Alert, oriented x3, and in no apparent distress. VITAL SIGNS: Today, temperature is 97.8, heart rate 73, respiratory rate 20, blood pressure 126/60, and pulse ox 96% on room air. PROBLEM FOCUSED LOWER EXTREMITY PHYSICAL EXAM VASCULAR: Dorsalis pedis and posterior tibial pulses are nonpalpable to the left lower extremity. Capillary refill time is delayed to the digits. Negative erythema, edema, or warmth is noted to the periwound of both ulceration sites. NEUROLOGICAL: Sensation is diminished to light touch. Paresthesias are present to the left foot. MUSCULOSKELETAL: Deferred. DERMATOLOGICAL: Two large open ulcerations are noted to the plantar aspect of the patient's left foot, unchanged from last visit. Maceration has improved. Negative erythema, edema, or warmth is noted to the periwound. ASSESSMENT: 1. Left foot multiple ulcerations with improved cellulitis. 2. Osteomyelitis, left 5th metatarsal head. 3. Peripheral vascular disease, status post angioplasty. 4. Congestive heart failure. 5. Atrial fibrillation. 6. History of stroke. 7. Type 2 diabetes with peripheral neuropathy. 8. Onychomycosis. PLAN: The patient was seen and evaluated. Discussed condition and treatment options with the patient in detail. Dressing was changed today with Betadine wet-to-dry fashion and maceration appears to be improved. Continue IV antibiotics per Infectious Disease with Rocephin and vancomycin for sensitivities. The patient has a PICC line placed and will require 6 to 8 weeks of IV antibiotics. LTAC approval for [facility] is pending for continued IV antibiotics, local wound care and possible HBO therapy. Recommended wound debridement today. The patient refused and relates that he would prefer to have wound debridement done once he is transferred to a nursing facility. Podiatry Service will continue to monitor as an inpatient. KEISHA Woodruff /[id number]
[2018-12-13] MEDS: CEFTRIAXONE SOD 1 GM/NS 50 ML 50 ML IV SCH (12:55)
--- NOTE | 2018-12-13 13:34 | NUR ---
Spoke with Dr. Cervantes and informed him of LTAC denial. Informed him that Dr. Corbett plans to discharge home with home health and IV abx or SNF. CM inquired about wound care order for discharge. Dr. Cervantes gave order for Betadine wet to dry, 4x4, Kerlex, and HUSSAIN wrap every other day for both home health and SNF. Will need wound care consult if he goes to SNF. CM asked Dr. Cervantes about hyperbarics treatment. He states that pt would benefit from it if he was transferred to LTAC, but since he was denied by insurance, alternative treatment as above was given. Pt to follow up with Dr. Cervantes within a few days of discharge from hospital. CM call pt's daughter Carine Almeida at [phone] to discuss MD's plans and phone went straight to voicemail. Left message and callback number.
--- NOTE | 2018-12-13 14:19 | NUR ---
CM attempted to call pt's daughter Carine again. No response. Left voicemail for callback.
--- NOTE | 2018-12-13 14:39 | NUR ---
Received callback from pt's daughter Carine Almeida. CM updated her on Dr. Corbett's dc plan - home with home health and IV abx vs SNF. Also informed her that CM spoke to Dr. Cervantes and was given wound care order for home health and SNF (Betadine, wet to dry, 4x4, kerlex every other day). Carine stated that she has filed an appeal with insurance for LTAC denial and that they said it could take up to 72 hrs for a decision. CM provided Carine with additional SNFs. She states she will probably talk to her parents about [facility]. CM informed Dr. Corbett that daughter filed an appeal. CM to follow.
[2018-12-13] MEDS: INSULIN GLARGINE 100 UNITS/ML VIAL SQ SCH (21:10)
[2018-12-14] VITALS (7 sets, daily range): BP systolic 130–150; BP diastolic 59–67
--- NOTE | 2018-12-14 07:00 | NUR ---
BEDSIDE SHIFT REPORT DONE WITH MACHINIST BRAKE RN. PT DENIES NEEDS AT THIS TIME.
[2018-12-14] MEDS: INSULIN LISPRO 100 UNIT/1 ML 3ML VIAL SQ SCH ×3 (08:00→17:00)
[2018-12-14] MEDS: DIGOXIN 0.125 MG TAB PO SCH (08:38)
[2018-12-14] MEDS: BUMETANIDE 1 MG TAB PO SCH ×2 (08:38→11:38)
[2018-12-14] MEDS: APIXABAN 5 MG TABLET PO SCH ×2 (08:38→17:39)
[2018-12-14] MEDS: OXYBUTYNIN CHLORIDE 5 MG TAB PO SCH ×2 (08:38→17:39)
[2018-12-14] MEDS: AMIODARONE HCL 200 MG TAB PO SCH (08:38)
[2018-12-14] MEDS: GLIPIZIDE 5 MG TAB PO SCH ×2 (08:38→17:39)
[2018-12-14] MEDS: BUPROPION HCL 150 MG TABCR PO SCH (08:39)
[2018-12-14] MEDS: METOPROLOL TARTRATE 25 MG TAB PO SCH (08:39)
[2018-12-14] MEDS: SENNOSIDES 8.6 MG TAB PO SCH ×2 (08:39→17:39)
[2018-12-14] MEDS: LISINOPRIL 2.5 MG TAB PO SCH (08:39)
[2018-12-14] MEDS: CLOPIDOGREL BISULFATE 75 MG TAB PO SCH (08:39)
--- NOTE | 2018-12-14 10:35 | Progress Note ---
DATE: 12/14/2018 SUBJECTIVE: This is a 78-year-old male with past medical history of type 2 diabetes, peripheral neuropathy, peripheral vascular disease, and multiple ulcerations to the left foot. He underwent debridement with incision and drainage 11 days ago and has been undergoing local wound care with IV antibiotics. The patient currently denies nausea, vomiting, fever, chills, chest pain, or shortness of breath. PHYSICAL EXAMINATION: GENERAL: Alert and oriented x3, in no apparent distress. VITAL SIGNS: Today, temperature 97.1, heart rate 70, respiratory rate 20, blood pressure 130/59, pulse ox is 97% on room air. PROBLEM FOCUSED LOWER EXTREMITY PHYSICAL EXAMINATION: VASCULAR: Dorsalis pedis and posterior tibial pulses are nonpalpable. Capillary refill time is delayed to the digits of the left foot. Negative erythema, edema, or warmth is noted to the periwound of both ulceration sites. NEUROLOGICAL: Sensation is diminished to light touch. Paresthesias are noted to the left heel. MUSCULOSKELETAL: Deferred. DERMATOLOGIC: Two large open ulcerations are noted to the plantar and medial aspect of the patient's left 5th metatarsal head and the left heel. Maceration has improved. Peeling skin is noted to the periphery. Contraction is noted to the left heel ulcer. The 5th metatarsal wound appears stable. Negative erythema, edema, or warmth is noted. ASSESSMENT: 1. Left foot multiple ulcerations with improved cellulitis. 2. Osteomyelitis of left 5th metatarsal head. 3. Peripheral vascular disease, status post angioplasty. 4. Congestive heart failure. 5. Atrial fibrillation. 6. History of stroke. 7. Type 2 diabetes with peripheral neuropathy. 8. Onychomycosis. PLAN: The patient was seen and evaluated. Discussed condition and treatment options with the patient in detail. Dressing was changed today with Xeroform to the left lower extremity wound. Continue IV antibiotics per Infectious Disease. PICC line has been placed and will require 6-8 weeks of IV antibiotics. LTAC approved for [facility], is pending for continued IV antibiotics, local wound care, and HBO therapy. Discussed the case with the case management as well as the patient's daughter, who feel that he would benefit from long-term acute care as well as HBO therapy versus going to a fpc facility. The patient is stable to be discharged from Podiatry standpoint. The Podiatry Service will continue to monitor as an inpatient. KEISHA Woodruff /[id number]
[2018-12-14] MEDS: CEFTRIAXONE SOD 1 GM/NS 50 ML 50 ML IV SCH (11:38)
--- NOTE | 2018-12-14 19:25 | NUR ---
Patient received sitting up in bed. Family at bedside. AAO x 3. Patient had no complaints of pain. Respirations even and non-labored. Fall precautions implemented. Patient instructed to call for assistance when needed. Call light within reach.
[2018-12-14] MEDS: INSULIN GLARGINE 100 UNITS/ML VIAL SQ SCH (21:00)
[2018-12-14] MEDS: VANCOMYCIN 1GM/NS 250 ML 250 ML IV SCH (23:00)
[2018-12-15] VITALS (9 sets, daily range): BP systolic 130–145; BP diastolic 62–66
[2018-12-15] MEDS: BUMETANIDE 1 MG TAB PO SCH ×2 (08:53→12:24)
[2018-12-15] MEDS: BUPROPION HCL 150 MG TABCR PO SCH (08:54)
[2018-12-15] MEDS: AMIODARONE HCL 200 MG TAB PO SCH (08:54)
[2018-12-15] MEDS: SENNOSIDES 8.6 MG TAB PO SCH ×2 (08:55→16:34)
[2018-12-15] MEDS: LISINOPRIL 2.5 MG TAB PO SCH (08:55)
[2018-12-15] MEDS: CLOPIDOGREL BISULFATE 75 MG TAB PO SCH (08:56)
[2018-12-15] MEDS: APIXABAN 5 MG TABLET PO SCH ×2 (08:56→16:32)
[2018-12-15] MEDS: OXYBUTYNIN CHLORIDE 5 MG TAB PO SCH ×2 (08:56→16:32)
[2018-12-15] MEDS: DIGOXIN 0.125 MG TAB PO SCH (08:56)
[2018-12-15] MEDS: METOPROLOL TARTRATE 25 MG TAB PO SCH (08:57)
[2018-12-15] MEDS: GLIPIZIDE 5 MG TAB PO SCH ×2 (09:03→16:32)
[2018-12-15] MEDS: INSULIN LISPRO 100 UNIT/1 ML 3ML VIAL SQ SCH ×3 (09:05→16:34)
--- NOTE | 2018-12-15 09:15 | Progress Note ---
DATE: 12/15/2018 SUBJECTIVE: This is a 78-year-old male with past medical history of type 2 diabetes, peripheral neuropathy, peripheral vascular disease, and multiple ulcerations to the left foot. He is approximately 12 days, status post incision and drainage with wound debridement. He is currently undergoing local wound care with IV antibiotics for osteomyelitis of his left 5th metatarsal head. Currently denies nausea, vomiting, fever, chills, chest pain, or shortness of breath. PHYSICAL EXAMINATION: GENERAL: Alert and oriented x3, in no apparent distress. VITAL SIGNS: Today, temperature 96.9, heart rate 71, respiratory rate 18, blood pressure 143/63, and pulse ox 95% on room air. PROBLEM FOCUSED LOWER EXTREMITY PHYSICAL EXAMINATION: VASCULAR: Dorsalis pedis and posterior tibial pulses are nonpalpable of the left foot. Negative erythema, edema, or warmth is noted to the periwound of the ulceration site. NEUROLOGICAL: Sensation is diminished to light touch. Paresthesias are noted to the heel, which are improving. MUSCULOSKELETAL: Deferred. DERMATOLOGIC: Two large open ulcerations are noted to the plantar lateral aspect of the 5th metatarsal head and the medial aspect of the left heel maceration is present. Peeling skin is noted at the periphery of the heel wound. Contractures noted to the left heel ulcer. Fifth metatarsal ulcer appear stable. Negative erythema, edema, or warmth is noted. ASSESSMENT: 1. Left foot multiple ulcerations with improved cellulitis. 2. Osteomyelitis of left fifth metatarsal head. 3. Peripheral vascular disease, status post angioplasty. 4. Congestive heart failure. 5. Atrial fibrillation. 6. History of stroke. 7. Type 2 diabetes with peripheral neuropathy. 8. Onychomycosis. PLAN: The patient was seen and evaluated. Discussed condition and treatment options with the patient in detail. Dressing was changed today with Betadine wet-to-dry to the left lower extremity. Continue IV antibiotics per Infectious Disease. PICC line has been placed. LTAC approval for [facility] is pending and family appeal is currently in progress. The patient's daughter relates that they have been evaluating SNF in the area for possible discharge if approval for [facility] is again denied. Discussed with case management and patient's daughter again that he would benefit from long-term acute care for IV antibiotics, local wound care, and HBO therapy. The patient is stable to be discharged from Podiatry standpoint. Podiatry Service will continue to monitor as an inpatient. KEISHA Woodruff/MODL /[id number]
[2018-12-15] MEDS: CEFTRIAXONE SOD 1 GM/NS 50 ML 50 ML IV SCH (12:24)
--- NOTE | 2018-12-15 15:23 | NUR ---
Nutrition Follow-up Note RD Recommendation(s) for Physician / Nutrition Prescription: continue with diet as prescribed Plan of Care: Patient has been screened and assessed for nutrition risk. At this time, the patient does not pose any nutrition risk. No further nutrition intervention is warranted at this time. Will re-evaluate if consulted by medical staff. Nutrition reason for involvement: Follow up Primary Dx: 1. Left foot multiple ulcerations with cellulitis. 2. Osteomyelitis of left 5th metatarsal head. 3. Peripheral vascular disease status post angioplasty. PMH: Ischemic cardiomyopathy, congestive heart failure, obesity, coronary artery disease, diabetes mellitus, hypertension, peripheral vascular disease, atrial fibrillation, CVA, depression, and anxiety. RD Assessment: (12/15) Pt was discussed during AM rounds. Pending placement. Pt reported fair appetite with 50-75% recorded meal intake. No GI complains reported. Current diet is adequate and appropriate. (12/08) 78yo M, who was admitted for L foot osteomyelitis. Visited pt in the room. Pt reported fair appetite with 50-75% recorded meal intake. No complains of nausea or vomiting. Pt reported of constipation x 5 days and Miralax was given. Pt denied any chewing or swallowing difficulty. Stable weight. Will continue to monitor and follow. Malnutrition Evaluation (12/08/2018) The patient does not meet criteria for a specified degree of malnutrition at this time. Will re-evaluate at follow-up as appropriate. Nutrition Care Level: Low Signed by Marion Jones, MS, RD, LD
--- NOTE | 2018-12-15 16:38 | NUR ---
Spoke with Carine Juan Pablo at bedside. She states that she was contacted by the medical staff coordinator Bridget Moss regarding need for an Appointment of Pulvi Mixer Operator form. Juan Pablo gave CM copy signed form and CM faxed form to Bridget at [phone]. Will follow up in AM. Bridget Moss [phone]
--- NOTE | 2018-12-15 21:07 | Progress Note ---
DATE: 12/15/2018 Medicine Progress Note I am covering for Dr. Corbett. SUBJECTIVE: The patient was admitted for underlying left foot osteomyelitis and left foot wounds. He is in the process of appealing his LTAC placement. The patient had a prolonged hospital course while here since December 02. No overnight events, currently doing well. He refuses to go to fpc facility. OBJECTIVE: VITAL SIGNS: Temperature is 97.1, pulse 72, respiratory rate is 18, blood pressure 132/62, pulse ox 97% on room air. GENERAL: Not in acute distress, alert and oriented x3, cooperative on examination. HEENT: Head is normocephalic, atraumatic. Eyes; pupils equal, round, reactive to light bilaterally. Extraocular movements are intact bilaterally. Throat, no evidence of erythema or exudates in the posterior pharynx. Has poor dentition. NECK: Supple. Good range of motion. PULMONARY: Clear to auscultation bilaterally. No wheezing. No rales. No rhonchi. No crackles appreciated. CARDIOVASCULAR: Positive S1, S2. No murmurs, rubs, or gallops appreciated. ABDOMEN: Soft, nondistended, and nontender to palpation. Bowel sounds present. MUSCULOSKELETAL: Strength is 5/5 throughout. No evidence of any muscle deficits on examination. NEUROLOGIC: Cranial nerves II through XII grossly intact. No evidence of any muscle deficits on examination. No weakness appreciated. NEUROLOGIC: Cranial nerves II through XII grossly intact. No evidence of any neurological deficits on exam. SKIN: Intact. Warm to touch. Good cap refill. PSYCHIATRIC: Normal affect and mood. EXTREMITIES: No edema. Good range of motion throughout. LABORATORY DATA: Lab findings show white count that is 10.6, hemoglobin 10.7, hematocrit is 35.1, platelets of 207. Coagulation; PT 15, INR 1.1. No chemistry today. IMPRESSION: 1. Left foot osteomyelitis with positive wound cultures. 2. Type 2 diabetes. 3. Medically debilitated. 4. Morbid obesity. PLAN: At this time, continue with IV antibiotics as per recommendation by ID. I will continue same plan of care. Continue with insulin sliding scale and long-acting Lantus. Get a.m. labs. He is still in the process of the LTAC appeal process. He does not want to go to fpc facility. At this time, we will continue same plan of care, and Dr. Corbett will be available back tomorrow. No issues at this time. I answered all the patient's questions and the nursing staff. MD JONATHAN Dominguez/MARYL /[id number]
[2018-12-15] MEDS: INSULIN GLARGINE 100 UNITS/ML VIAL SQ SCH (22:00)
[2018-12-16] VITALS (8 sets, daily range): BP systolic 106–141; BP diastolic 52–81
[2018-12-16] MEDS: INSULIN LISPRO 100 UNIT/1 ML 3ML VIAL SQ SCH ×3 (08:00→17:00)
--- NOTE | 2018-12-16 08:45 | Progress Note ---
DATE: 12/16/2018 SUBJECTIVE: This is a 78-year-old male with past medical history of type 2 diabetes, peripheral neuropathy, peripheral vascular disease, and multiple ulcerations to the left foot. He had an I and D wound debridement approximately 13 days ago. He is currently undergoing local wound care with IV antibiotics and has osteomyelitis of the 5th metatarsal head. Denies nausea, vomiting, fever, chills, chest pain, or shortness of breath. No acute issues overnight. OBJECTIVE: VITAL SIGNS: Today, temperature 97.2, heart rate 71, respiratory rate 18, blood pressure 121/59, and pulse ox 95% on room air. PROBLEM FOCUSED LOWER EXTREMITY PHYSICAL EXAMINATION: VASCULAR: Dorsalis pedis and posterior tibial pulses are nonpalpable to the left lower extremity. Erythema, edema, and warmth has resolved to the both periwound of the ulceration sites. NEUROLOGICAL: Sensation is diminished to light touch. Paresthesias are noted to the heel. MUSCULOSKELETAL: Deferred. DERMATOLOGIC: Two large open ulcerations are noted, one to the plantar lateral aspect of the left 5th metatarsal head, one to the lateral aspect of the left heel. Contracture is noted to the left heel ulcer. 5th metatarsal ulcer appears stable with mild macerations. Negative erythema, edema or warmth noted. ASSESSMENT: 1. Left foot ulcerations x2 with cellulitis. 2. Osteomyelitis of left 5th metatarsal head. 3. Peripheral vascular disease, status post angioplasty. 4. Congestive heart failure. 5. Atrial fibrillation. 6. History of stroke. 7. Type 2 diabetes with peripheral neuropathy. 8. Onychomycosis. PLAN: The patient was seen and evaluated. Discussed condition and treatment options with the patient in detail. Dressing was changed today with a Betadine wet-to-dry to the left lower extremity. We will recommend continuing IV antibiotics per Infectious Disease. LTAC approval for [facility] is pending through a family appeal and it is currently still in progress. The patient's daughter and the patient prefer not to go to a fpc facility. Discussed with Case Management and the patient's daughter that he would benefit from long-term acute care for IV antibiotics, local wound care, and hyperbaric oxygen therapy. The patient is stable to be discharged from Podiatry standpoint. Podiatry Service will continue to monitor as an inpatient. KEISHA Woodruff /[id number]
[2018-12-16] MEDS: BUMETANIDE 1 MG TAB PO SCH ×2 (09:12→12:31)
[2018-12-16] MEDS: GLIPIZIDE 5 MG TAB PO SCH ×2 (09:12→18:16)
[2018-12-16] MEDS: AMIODARONE HCL 200 MG TAB PO SCH (09:13)
[2018-12-16] MEDS: APIXABAN 5 MG TABLET PO SCH ×2 (09:14→18:16)
[2018-12-16] MEDS: OXYBUTYNIN CHLORIDE 5 MG TAB PO SCH ×2 (09:14→18:16)
[2018-12-16] MEDS: DIGOXIN 0.125 MG TAB PO SCH (09:14)
[2018-12-16] MEDS: SENNOSIDES 8.6 MG TAB PO SCH ×2 (09:15→18:16)
[2018-12-16] MEDS: LISINOPRIL 2.5 MG TAB PO SCH (09:15)
[2018-12-16] MEDS: CLOPIDOGREL BISULFATE 75 MG TAB PO SCH (09:15)
[2018-12-16] MEDS: METOPROLOL TARTRATE 25 MG TAB PO SCH (09:15)
[2018-12-16] MEDS: BUPROPION HCL 150 MG TABCR PO SCH (09:15)
--- NOTE | 2018-12-16 11:05 | NUR ---
CM called transitions rn care coordinator Bridget Moss at [phone] and left voicemail for call back.
--- NOTE | 2018-12-16 11:12 | NUR ---
Received call back from Bridget Moss with [employer]. She acknowledged that she has received the Appointment of Thinner Sprayer form. Faxed updated clinicals as requested from 12/14 - to [phone]. Bridget stated that should have decision by end of day today or tomorrow.
[2018-12-16] MEDS: CEFTRIAXONE SOD 1 GM/NS 50 ML 50 ML IV SCH (12:31)
--- NOTE | 2018-12-16 15:00 | NUR ---
Spoke to Dr. Mcfarland who states if pt's appeal for [facility] is upheld and pt does not go to a facility, pt can dc home on oral abx. Should have decision on appeal by tomorrow.
[2018-12-16] MEDS ORDERED: SODIUM CHLORIDE 0.9% 250ML 250 ML ONE (21:25)
[2018-12-16] MEDS: INSULIN GLARGINE 100 UNITS/ML VIAL SQ SCH (21:30)
[2018-12-16] MEDS: VANCOMYCIN 1GM/NS 250 ML 250 ML IV SCH (22:06)
[2018-12-17] VITALS: BP 149/65
[2018-12-17 01:17] VITALS: BP 149/65
[2018-12-17 04:00] VITALS: BP 117/55
[2018-12-17] MEDS: GLIPIZIDE 5 MG TAB PO SCH (07:30)
--- NOTE | 2018-12-17 07:30 | NUR ---
RCD PT AT BED PT IS ALERT AND ORIENTED PT RESTING ON BED NO SIGNS PF ANY DISTRESS NOTED IV PATENT BED LOW AND LOCKED CALL LIGHT IN REACH
[2018-12-17 08:00] VITALS: BP 130/60
[2018-12-17] MEDS: BUMETANIDE 1 MG TAB PO SCH ×2 (08:00→12:00)
[2018-12-17] MEDS: INSULIN LISPRO 100 UNIT/1 ML 3ML VIAL SQ SCH ×2 (08:00→12:00)
[2018-12-17 09:00] VITALS: BP 130/60
[2018-12-17] MEDS: APIXABAN 5 MG TABLET PO SCH (09:00)
[2018-12-17] MEDS: METOPROLOL TARTRATE 25 MG TAB PO SCH (09:00)
[2018-12-17] MEDS: AMIODARONE HCL 200 MG TAB PO SCH (09:00)
[2018-12-17] MEDS: CLOPIDOGREL BISULFATE 75 MG TAB PO SCH (09:00)
[2018-12-17] MEDS: OXYBUTYNIN CHLORIDE 5 MG TAB PO SCH (09:00)
[2018-12-17] MEDS: LISINOPRIL 2.5 MG TAB PO SCH (09:00)
[2018-12-17] MEDS: BUPROPION HCL 150 MG TABCR PO SCH (09:00)
[2018-12-17] MEDS: SENNOSIDES 8.6 MG TAB PO SCH (09:00)
[2018-12-17] MEDS: DIGOXIN 0.125 MG TAB PO SCH (09:00)
[2018-12-17] MEDS: CEFTRIAXONE SOD 1 GM/NS 50 ML 50 ML IV SCH (12:00)
[2018-12-17 12:06] VITALS: BP 134/62
--- NOTE | 2018-12-17 12:20 | NUR ---
REPORT GIVEN TO NANDO SANCHEZ
--- NOTE | 2018-12-17 13:18 | NUR ---
PT WENT TO [facility] IN SAFE CONDITION
--- NOTE | 2018-12-18 05:31 | Discharge Summary ---
PRIMARY CARE PHYSICIAN: Dr. Rm Parham. CONSULTANTS: 1. Dr. Isma Cervantes. 2. Dr. Margaret Mcfarland. FINAL DIAGNOSES: 1. Left foot multiple ulcerations, status post left foot subcutaneous debridement done by Dr. Cornelius. The procedure was done on November 23, 2018. 2. Lower extremity CT scan compatible with subtle changes osteomyelitis. 3. Baseline obesity, diabetes type 2, on insulin therapy good control, atrial fibrillation, anticoagulant therapy. HISTORY OF PRESENT ILLNESS: A [id number]-male with baseline multiple medical problem, ongoing left foot wounds, multiple ulcers, infected diabetic foot ulcer status post debridement done by Dr. Cornelius. The patient is doing well. The patient is stable. The patient will transfer to [facility]. Continue with the antibiotics treatment. Dr. Cornelius will follow the patient and continue with wound management. The patient is stable, discharged today. Medication reconciliation is done. Continue with active medication. The patient will be admitted to Dr. Aparna Patel at [facility]. MD SID Kline/VICENTE /[id number]
== END 2018-12-17 13:17 | DRG 623 ==
LOC: MED/SURG2 13:11
PROVIDERS: ADMIT Internal Medicine; ATTEND Internal Medicine
PROC: 0JBR0ZZ Excision of Left Foot Subcutaneous Tissue and Fascia, Open Approach (ICD-10-PCS; 2018-12-03)
PROC: 02HV33Z Insertion of Infusion Device into Superior Vena Cava, Percutaneous Approach (ICD-10-PCS; principal; 2018-12-06)
DX: E11.69 Type 2 diabetes mellitus with other specified complication (principal); M86.8X7 Other osteomyelitis, ankle and foot; I13.0 Hypertensive heart and chronic kidney disease with heart failure and stage 1 through stage 4 chronic kidney disease, or unspecified chronic kidney disease; E11.621 Type 2 diabetes mellitus with foot ulcer; E11.42 Type 2 diabetes mellitus with diabetic polyneuropathy; Z79.4 Long term (current) use of insulin; E11.51 Type 2 diabetes mellitus with diabetic peripheral angiopathy without gangrene; I10 Essential (primary) hypertension; Z86.73 Personal history of transient ischemic attack (TIA), and cerebral infarction without residual deficits; F32.9 Major depressive disorder, single episode, unspecified; F41.9 Anxiety disorder, unspecified; Z90.49 Acquired absence of other specified parts of digestive tract; Z95.5 Presence of coronary angioplasty implant and graft; E66.9 Obesity, unspecified; Z68.35 Body mass index [BMI] 35.0-35.9, adult; B95.2 Enterococcus as the cause of diseases classified elsewhere; B96.89 Other specified bacterial agents as the cause of diseases classified elsewhere; E11.22 Type 2 diabetes mellitus with diabetic chronic kidney disease; N18.9 Chronic kidney disease, unspecified; I50.9 Heart failure, unspecified
CPT/HCPCS: 36415; 36569; 71045; 80048; 80053; 80202; 82550; 82553; 82948; 84484; 85025; 85610; 87040; 87071; 87186; 87205; 93005; 97139; J0692; J0696; J1815; J3370; J7050